=== PATIENT | male | born 1930 | race Caucasian/White ===

== ENCOUNTER 2016-10-19 16:58 | Inpatient (IN) | payer MEDICARE, BC ==
[2016-10-19] MEDS ORDERED: IPRATROPIUM-ALBUTEROL 3 ML NEB INHALATION STA (17:11)
--- NOTE | 2016-10-19 17:17 | ED ---
General Adult HPI - General Stated complaint: BRADLEY Time Seen by Provider: 10/19/16 17:01 Source: patient, EMS, RN notes reviewed Mode of arrival: EMS Limitations: no limitations - History of Present Illness Initial comments: Patient is a pleasant 86-year-old male presenting to the emergency department with difficulty in breathing. Symptoms have been present for the past 3 days. Patient admits to a nonproductive cough. No leg pain or leg swelling. Patient is unclear if he has had fevers. Patient is somewhat a poor historian. Patient reportedly is a no code. Patient does have paperwork confirming this. Patient reports he had a chest x-ray done and diagnosed with pneumonia. Patient has not yet been provided with antibiotics. - Related Data Home Medications Medication Instructions Recorded Confirmed Bimatoprost [Lumigan .01% Ophth 1 drop BOTH EYES HS@2100 10/30/14 10/19/16 Soln] Citalopram Hydrobromide [CeleXA] 20 mg PO HS@2100 10/30/14 10/19/16 Hydrochlorothiazide [Hydrodiuril] 25 mg PO DAILY@0800 10/30/14 10/19/16 Levothyroxine Sodium [Levoxyl] 125 mcg PO DAILY@0600 10/30/14 10/19/16 Losartan Potassium [Cozaar] 100 mg PO DAILY@0800 10/30/14 10/19/16 Metoprolol Tartrate [Lopressor] 100 mg PO BID@0800,2100 10/30/14 10/19/16 Simvastatin [Zocor] 20 mg PO AC-SUPPER@1700 10/30/14 10/19/16 hydrALAZINE HCL 25 mg PO BID@0800,1700 10/30/14 10/19/16 Multivit-Min/FA/Lycopene/Lut 1 tab PO DAILY@1700 03/12/15 10/19/16 [Centrum Silver Tablet] Albuterol Nebulized [Ventolin 2.5 mg INHALATION RT-Q6H PRN 10/05/15 10/19/16 Nebulized] Allopurinol [Zyloprim] 300 mg PO DAILY@0800 07/06/16 10/19/16 glipiZIDE [Glucotrol] 5 mg PO AC-TID 07/06/16 10/19/16 Acetaminophen Tab [Tylenol Tab] 650 mg PO Q4H PRN 10/19/16 10/19/16 Aspirin 325 mg PO DAILY@1700 10/19/16 10/19/16 Bisacodyl [Dulcolax] 10 mg RECTAL DAILY PRN 10/19/16 10/19/16 Furosemide 40 mg IV BID@0800,2100 10/19/16 10/19/16 Furosemide 40 mg IV ONCE@1037 10/19/16 10/19/16 Glucavinash Brown 1 can PO TID@0800,1200,1700 10/19/16 10/19/16 Insulin Aspart [NovoLOG] See Protocol SQ ACHS 10/19/16 10/19/16 Insulin Detemir [Levemir] 8 unit SQ BID@0800,1700 10/19/16 10/19/16 Ipratropium-Albuterol Nebulize 3 ml INHALATION RT-Q6H 10/19/16 10/19/16 [Duoneb 0.5 mg-3 mg/3 ml Soln] Levofloxacin 500Mg-D5w Pmx 500 mg IVPB HS@2100 10/19/16 10/19/16 [Levaquin 500Mg-D5w Pmx] Magnesium Hydroxide [Milk of 2,400 mg PO DAILY PRN 10/19/16 10/19/16 Magnesia] Na Phos,M-B/Na Phos,Di-Ba [Fleet 133 ml RECTAL ONCE PRN 10/19/16 10/19/16 Adult] Potassium Chloride ER [K-Dur 20] 20 meq PO ONCE@1300 10/19/16 10/19/16 Potassium Chloride ER [K-Dur 20] 20 meq PO ONCE@1400 10/19/16 10/19/16 Tiotropium 18 Mcg/Puff [Spiriva] 1 cap INHALATION RT-BID@0800,1700 10/19/16 guaiFENesin SYRUP 100MG/5ML 200 mg PO Q4H PRN 10/19/16 10/19/16 [Robitussin] guaiFENesin [Mucinex] 1,200 mg PO Q12H 10/19/16 10/19/16 Allergies Allergy/AdvReac Type Severity Reaction Status Date / Time Iodinated Contrast Media - Allergy Severe Confusion Verified 10/19/16 17:44 Oral and [Iodinated Contrast Media - IV Dye] Review of Systems ROS Statement: Those systems with pertinent positive or pertinent negative responses have been documented in the HPI. ROS Other: All systems not noted in ROS Statement are negative. Constitutional: Denies: chills Eyes: Denies: eye pain ENT: Denies: ear pain Respiratory: Reports: cough, dyspnea Cardiovascular: Denies: chest pain Endocrine: Denies: fatigue Gastrointestinal: Denies: abdominal pain Genitourinary: Denies: dysuria Musculoskeletal: Denies: back pain Skin: Denies: rash Neurological: Denies: weakness Past Medical History Past Medical History: Asthma, Cancer, Heart Failure, COPD, CVA/TIA, Diabetes Mellitus, Eye Disorder, Hyperlipidemia, Hypertension, Myocardial Infarction ([place]) Additional Past Medical History / Comment(s): CURRENT DRESSING ON LEFT FOOT, GOUT, GLAUCOMA, 2CND TOE LEFT FOOT AMPUTATED, HX CA, LIP SQUAMOUS CELL, SPLEEN CA, 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 Last Myocardial Infarction Date:: 2007 History of Any Multi-Drug Resistant Organisms: C-DIFF, MRSA Date of last positivie culture/infection: 08/2015 MDRO Source:: stool 2016, foot 2009 MRSA Past Surgical History: Appendectomy, Bladder Surgery, Bowel Resection, Cholecystectomy, Coronary Bypass/CABG, Hernia Repair, Joint Replacement, Pacemaker Additional Past Surgical History / Comment(s): SPLEEN and partial pancreas removed due to cancer, total right knee, SQUAMOUS CELL LESION REMOVED LIP, 2CND TOE LEFT TOE AMPUTATED,ANGIOGRAM 02/26/15 3rd toe lt foot amp, Past Anesthesia/Blood Transfusion Reactions: No Reported Reaction Type of Cardiac Device: Permanent Pacemaker, AICD Device Placement Date:: 2009 [place] Past Psychological History: Anxiety, Depression Additional Psychological History / Comment(s): at [facility] Smoking Status: Former smoker Past Alcohol Use History: Rare Additional Past Alcohol Use History / Comment(s): SMOKED CIGAR AND PIPE, STOPPED 1984 Past Drug Use History: None Reported - Past Family History Father Family Medical History: Cancer Additional Family Medical History / Comment(s): liver cancer Mother Family Medical History: Diabetes Mellitus, Myocardial Infarction ([place]) General Exam Limitations: no limitations General appearance: alert, in distress Head exam: Present: atraumatic Eye exam: Present: normal appearance, PERRL ENT exam: Present: normal oropharynx Neck exam: Present: normal inspection Respiratory exam: Present: respiratory distress, rales (Throughout) Cardiovascular Exam: Present: regular rate, normal rhythm GI/Abdominal exam: Present: soft. Absent: tenderness Extremities exam: Present: normal inspection. Absent: pedal edema, calf tenderness Neurological exam: Present: alert Psychiatric exam: Present: normal affect, normal mood Skin exam: Absent: rash Course Vital Signs 10/19/16 10/19/16 10/19/16 17:11 17:12 17:30 Temperature 100.1 F H Pulse Rate 104 H 97 Respiratory 32 H 36 H 32 H Rate Blood Pressure 170/109 137/78 O2 Sat by Pulse 93 L 95 Oximetry 10/19/16 10/19/16 10/19/16 18:09 19:00 19:20 Temperature Pulse Rate 94 85 81 Respiratory 36 H 30 H Rate Blood Pressure 126/73 104/57 O2 Sat by Pulse 95 99 Oximetry - Reevaluation(s) Reevaluation #1: 10/19/16 19:33 Patient has possible pneumonia and will be treated with antibiotics. Patient does meet sepsis criteria assuming pneumonia is positive on chest x-ray. This will be further evaluated by pulmonology. EKG Findings - EKG Comments: EKG Findings:: Paced rhythm and 96. MS 1:30. QRS 120. QT 380. QTC 48. Superior axis. Poor R-wave progression. No acute ST change. Medical Decision Making - Medical Decision Making Patient reevaluated and significantly improved with BiPAP. Family updated. Family confirms no CPR no intubation. Case discussed with both Dr. Lakhani as well as Dr. Lawton. They will admit further patient. Consult with Dr. Alfaro. Patient will be treated with antibiotics for possible pneumonia. - Lab Data Result diagrams: 10/19/16 17:29 10/19/16 18:03 Lab Results 10/19/16 10/19/16 10/19/16 Range/Units 17:29 17:29 17:29 WBC 11.2 H (3.8-10.6) k/uL RBC 3.85 L (4.30-5.90) m/uL Hgb 12.3 L (13.0-17.5) gm/dL Hct 38.1 L (39.0-53.0) % MCV 98.9 (80.0-100.0) fL MCH 31.9 (25.0-35.0) pg MCHC 32.2 (31.0-37.0) g/dL RDW 17.1 H (11.5-15.5) % Plt Count 244 (150-450) k/uL Neutrophils % 59 % Lymphocytes % 33 % Monocytes % 4 % Eosinophils % 1 % Basophils % 1 % Neutrophils # 6.6 (1.3-7.7) k/uL Lymphocytes # 3.7 (1.0-4.8) k/uL Monocytes # 0.4 (0-1.0) k/uL Eosinophils # 0.2 (0-0.7) k/uL Basophils # 0.1 (0-0.2) k/uL Hypochromasia Slight Anisocytosis Slight Macrocytosis Slight PT (9.0-12.0) sec INR (<1.1) APTT (22.0-30.0) sec Sodium (137-145) mmol/L Potassium (3.5-5.1) mmol/L Chloride (98-107) mmol/L Carbon Dioxide (22-30) mmol/L Anion Gap mmol/L BUN (9-20) mg/dL Creatinine (0.66-1.25) mg/dL Est GFR (MDRD) Af Amer (>60 ml/min/1.73 sqM) Est GFR (MDRD) Non-Af (>60 ml/min/1.73 sqM) Glucose (74-99) mg/dL Plasma Lactic Acid Sae 3.2 H* (0.7-2.0) mmol/L Calcium (8.4-10.2) mg/dL Total Bilirubin (0.2-1.3) mg/dL AST (17-59) U/L ALT (21-72) U/L Alkaline Phosphatase (38-126) U/L Total Creatine Kinase (55-170) U/L NT-Pro-B Natriuret Pep 6000 pg/mL Total Protein (6.3-8.2) g/dL Albumin (3.5-5.0) g/dL Urine Color Urine Appearance (Clear) Urine pH (5.0-8.0) Ur Specific [place] (1.001-1.035) Urine Protein (Negative) Urine Glucose (UA) (Negative) Urine Ketones (Negative) Urine Blood (Negative) Urine Nitrate (Negative) Urine Bilirubin (Negative) Urine Urobilinogen (<2.0) mg/dL Ur Leukocyte Esterase (Negative) Urine RBC (0-5) /hpf Urine WBC (0-5) /hpf Urine WBC Clumps (None) /hpf Urine Bacteria (None) /hpf Hyaline Casts (0-2) /lpf Urine Mucus (None) /hpf Influenza Type A RNA (Not Detectd) Influenza Type B (PCR) (Not Detectd) 10/19/16 10/19/16 10/19/16 Range/Units 17:29 18:03 18:03 WBC (3.8-10.6) k/uL RBC (4.30-5.90) m/uL Hgb (13.0-17.5) gm/dL Hct (39.0-53.0) % MCV (80.0-100.0) fL MCH (25.0-35.0) pg MCHC (31.0-37.0) g/dL RDW (11.5-15.5) % Plt Count (150-450) k/uL Neutrophils % % Lymphocytes % % Monocytes % % Eosinophils % % Basophils % % Neutrophils # (1.3-7.7) k/uL Lymphocytes # (1.0-4.8) k/uL Monocytes # (0-1.0) k/uL Eosinophils # (0-0.7) k/uL Basophils # (0-0.2) k/uL Hypochromasia Anisocytosis Macrocytosis PT (9.0-12.0) sec INR (<1.1) APTT (22.0-30.0) sec Sodium 144 (137-145) mmol/L Potassium 3.4 L (3.5-5.1) mmol/L Chloride 102 (98-107) mmol/L Carbon Dioxide 29 (22-30) mmol/L Anion Gap 13 mmol/L BUN 29 H (9-20) mg/dL Creatinine 0.89 (0.66-1.25) mg/dL Est GFR (MDRD) Af Amer >60 (>60 ml/min/1.73 sqM) Est GFR (MDRD) Non-Af >60 (>60 ml/min/1.73 sqM) Glucose 157 H (74-99) mg/dL Plasma Lactic Acid Sae (0.7-2.0) mmol/L Calcium 10.8 H (8.4-10.2) mg/dL Total Bilirubin 0.8 (0.2-1.3) mg/dL AST 39 (17-59) U/L ALT 52 (21-72) U/L Alkaline Phosphatase 93 (38-126) U/L Total Creatine Kinase 58 (55-170) U/L NT-Pro-B Natriuret Pep pg/mL Total Protein 7.6 (6.3-8.2) g/dL Albumin 3.2 L (3.5-5.0) g/dL Urine Color Urine Appearance (Clear) Urine pH (5.0-8.0) Ur Specific [place] (1.001-1.035) Urine Protein (Negative) Urine Glucose (UA) (Negative) Urine Ketones (Negative) Urine Blood (Negative) Urine Nitrate (Negative) Urine Bilirubin (Negative) Urine Urobilinogen (<2.0) mg/dL Ur Leukocyte Esterase (Negative) Urine RBC (0-5) /hpf Urine WBC (0-5) /hpf Urine WBC Clumps (None) /hpf Urine Bacteria (None) /hpf Hyaline Casts (0-2) /lpf Urine Mucus (None) /hpf Influenza Type A RNA Not Detected (Not Detectd) Influenza Type B (PCR) Not Detected (Not Detectd) 10/19/16 10/19/16 Range/Units 18:03 18:45 WBC (3.8-10.6) k/uL RBC (4.30-5.90) m/uL Hgb (13.0-17.5) gm/dL Hct (39.0-53.0) % MCV (80.0-100.0) fL MCH (25.0-35.0) pg MCHC (31.0-37.0) g/dL RDW (11.5-15.5) % Plt Count (150-450) k/uL Neutrophils % % Lymphocytes % % Monocytes % % Eosinophils % % Basophils % % Neutrophils # (1.3-7.7) k/uL Lymphocytes # (1.0-4.8) k/uL Monocytes # (0-1.0) k/uL Eosinophils # (0-0.7) k/uL Basophils # (0-0.2) k/uL Hypochromasia Anisocytosis Macrocytosis PT 12.0 (9.0-12.0) sec INR 1.2 (<1.1) APTT 22.6 (22.0-30.0) sec Sodium (137-145) mmol/L Potassium (3.5-5.1) mmol/L Chloride (98-107) mmol/L Carbon Dioxide (22-30) mmol/L Anion Gap mmol/L BUN (9-20) mg/dL Creatinine (0.66-1.25) mg/dL Est GFR (MDRD) Af Amer (>60 ml/min/1.73 sqM) Est GFR (MDRD) Non-Af (>60 ml/min/1.73 sqM) Glucose (74-99) mg/dL Plasma Lactic Acid Sae (0.7-2.0) mmol/L Calcium (8.4-10.2) mg/dL Total Bilirubin (0.2-1.3) mg/dL AST (17-59) U/L ALT (21-72) U/L Alkaline Phosphatase (38-126) U/L Total Creatine Kinase (55-170) U/L NT-Pro-B Natriuret Pep pg/mL Total Protein (6.3-8.2) g/dL Albumin (3.5-5.0) g/dL Urine Color Light Yellow Urine Appearance Cloudy (Clear) Urine pH 5.5 (5.0-8.0) Ur Specific [place] 1.007 (1.001-1.035) Urine Protein Negative (Negative) Urine Glucose (UA) Negative (Negative) Urine Ketones Negative (Negative) Urine Blood Negative (Negative) Urine Nitrate Negative (Negative) Urine Bilirubin Negative (Negative) Urine Urobilinogen <2.0 (<2.0) mg/dL Ur Leukocyte Esterase Small H (Negative) Urine RBC 1 (0-5) /hpf Urine WBC 10 H (0-5) /hpf Urine WBC Clumps Rare H (None) /hpf Urine Bacteria Occasional H (None) /hpf Hyaline Casts 10 H (0-2) /lpf Urine Mucus Rare H (None) /hpf Influenza Type A RNA (Not Detectd) Influenza Type B (PCR) (Not Detectd) - Radiology Data Radiology results: image reviewed (This x-ray shows some CHF. Personally I do question if there is a right middle lobe infiltrate as well.) Critical Care Time Critical Care Time: Yes Total Critical Care Time: 33 Disposition Clinical Impression: Congestive heart failure, Respiratory failure, Pneumonia Disposition: ADMITTED IP TO THIS HOSP Condition: Serious
[2016-10-19 17:41] LABS: Anisocytosis Slight; Basophils # (A) 0.1 k/uL (0-0.2); Basophils % (A) 1 %; CH 31.3; CHCM 31.9; Eosinophils # (A) 0.2 k/uL (0-0.7); Eosinophils % (A) 1 %; HCT 38.1 % (39.0-53.0); HDW 2.86; HGB 12.3 gm/dL (13.0-17.5); Hypochromasia Slight; Luc # (Auto) 0.22; Luc % (Auto) 2; Lymphocytes # (A) 3.7 k/uL (1.0-4.8); Lymphocytes % (A) 33 %; MCH 31.9 pg (25.0-35.0); MCHC 32.2 g/dL (31.0-37.0); MCV 98.9 fL (80.0-100.0); Macrocytosis Slight; Monocytes # (A) 0.4 k/uL (0-1.0); Monocytes % (A) 4 %; Neutrophils # (A) 6.6 k/uL (1.3-7.7); Neutrophils % (A) 59 %; RBC 3.85 m/uL (4.30-5.90); RDW 17.1 % (11.5-15.5); WBC 11.2 k/uL (3.8-10.6); WBC (Perox) 11.11
--- NOTE | 2016-10-19 18:08 | XR ---
EXAMINATION TYPE: XR chest 1V portable DATE OF EXAM: 10/19/2016 5:56 PM COMPARISON: 07/12/2016 HISTORY: Difficulty breathing TECHNIQUE: Single frontal view of the chest is obtained. FINDINGS: There is mild pulmonary congestion. There are chest leads. There is a left axillary pacema ker with lead tips in the right ventricle. There are no hilar masses. Heart is probably enlarged. IMPRESSION: There is probably mild heart failure. Pulmonary vascularity is similar to last exam. The re is probably interposition of the hepatic flexure of the colon which is normal variation.
[2016-10-19 18:20] LABS: ALT 52 U/L (21-72); AST 39 U/L (17-59); Alkaline Phosphatase 93 U/L (38-126); Anion Gap 13 mmol/L; Blood Urea Nitrogen 29 mg/dL (9-20); Calcium 10.8 mg/dL (8.4-10.2); Carbon Dioxide 29 mmol/L (22-30); Chloride 102 mmol/L (98-107); Glucose 157 mg/dL (74-99); Non-African American GFR(MDRD) >60 (>60 ml/min/1.73 sqM); Potassium 3.4 mmol/L (3.5-5.1); Sodium 144 mmol/L (137-145); Total Bilirubin 0.8 mg/dL (0.2-1.3); Total Protein 7.6 g/dL (6.3-8.2)
[2016-10-19] MEDS ORDERED: FUROSEMIDE 10 MG/ML 4 ML VIAL IV STA (18:29)
[2016-10-19] MEDS ORDERED: LEVOFLOXACIN 750MG-D5W PMX 750 MG in DEXTROSE/WATER 1 150ML.BAG IVPB STA (18:29)
[2016-10-19 18:33] LABS: INR 1.2 (<1.1); Partial Thromboplastin Time 22.6 sec (22.0-30.0)
[2016-10-19 19:04] LABS: Appearance,Urine Cloudy (Clear); Bacteria,Urine Occasional /hpf; Bilirubin,Urine Negative (Negative); Glucose,Urine (UA) Negative (Negative); Ketones,Urine Negative (Negative); Leukocyte Esterase,Urine Small (Negative); Mucus,Urine Rare /hpf; Nitrite,Urine Negative (Negative); PH, Urine 5.5 (5.0-8.0); Particle Count 30063; Protein,Urine Negative (Negative); RBC,Urine 1 /hpf (0-5); Specific Gravity,Urine 1.007 (1.001-1.035); UA Billing (MACRO vs. MICRO) MICRO; Urobilinogen,Urine <2.0 mg/dL (<2.0); WBC,Urine 10 /hpf (0-5)
[2016-10-19] MEDS ORDERED: ASPIRIN 325 MG TAB PO STA (19:34)
[2016-10-19] MEDS ORDERED: PIPERACILLIN-TAZOBACTAM 3.375 GM in DEXTROSE/WATER 1 50ML.BAG IVPB STA (19:34)
[2016-10-19] MEDS ORDERED: IPRATROPIUM-ALBUTEROL 3 ML NEB INHALATION PRN (19:34)
[2016-10-19] MEDS ORDERED: PNEUMONIA PROTOCOL UTILIZED 1 EACH MISC PO PRN (19:34)
[2016-10-19 20:08] LABS: Creatine Kinase MB 0.9 ng/mL (0.0-2.4)
[2016-10-19 20:11] LABS: Troponin I 0.092 ng/mL (0.000-0.034)
[2016-10-19] MEDS: IPRATROPIUM-ALBUTEROL 3 ML NEB INHALATION SCH (20:28)
[2016-10-19 22:18] LABS: Glucose,Whole Blood 238 mg/dL (75-99)
[2016-10-20 02:05] LABS: Glucose,Whole Blood 290 mg/dL (75-99)
[2016-10-20 05:57] LABS: Glucose,Whole Blood 327 mg/dL (75-99)
[2016-10-20] MEDS ORDERED: ONDANSETRON 4 MG/2 ML VIAL IVP PRN (06:13)
[2016-10-20] MEDS: INSULIN LISPRO (humaLOG) 300 UNIT/3 ML VIAL SQ SCH ×4 (06:59→20:45)
[2016-10-20] MEDS ORDERED: MAGNESIUM HYDROXIDE 2,400 MG/10 ML CUP PO PRN (07:42)
[2016-10-20 07:48] LABS: Anisocytosis Slight; CH 30.4; CHCM 30.4; HCT 34.3 % (39.0-53.0); HDW 2.77; HGB 10.5 gm/dL (13.0-17.5); Hypochromasia Moderate; MCH 30.9 pg (25.0-35.0); MCHC 30.7 g/dL (31.0-37.0); MCV 100.6 fL (80.0-100.0); Macrocytosis Slight; Mean Platelet Volume 11.8; RBC 3.41 m/uL (4.30-5.90); RDW 16.8 % (11.5-15.5); WBC 13.4 k/uL (3.8-10.6)
[2016-10-20 07:56] LABS: Anion Gap 15 mmol/L; Blood Urea Nitrogen 35 mg/dL (9-20); Calcium 10.6 mg/dL (8.4-10.2); Carbon Dioxide 27 mmol/L (22-30); Chloride 102 mmol/L (98-107); Glucose 313 mg/dL (74-99); Non-African American GFR(MDRD) >60 (>60 ml/min/1.73 sqM); Potassium 3.6 mmol/L (3.5-5.1); Sodium 144 mmol/L (137-145)
[2016-10-20] MEDS: FUROSEMIDE 10 MG/ML 4 ML VIAL IV SCH ×3 (07:58→23:18)
[2016-10-20] MEDS: ASPIRIN 325 MG TAB PO SCH (07:59)
[2016-10-20] MEDS: LOSARTAN 50 MG TAB PO SCH (07:59)
[2016-10-20] MEDS: METOPROLOL TARTRATE 50 MG TAB PO SCH ×2 (07:59→20:26)
[2016-10-20] MEDS: INSULIN DETEMIR 100 UNIT/ML 10 ML VIAL SQ SCH ×2 (08:02→17:34)
--- NOTE | 2016-10-20 08:07 | P.CRDCN ---
History of Present Illness Consult date: 10/20/16 Requesting physician: Izabella Connors Consult reason: shortness of breath Chief complaint: Cough, weakness and shortness of breath History of present illness: This is an 86-year-old gentleman with known history of coronary artery disease, prior bypass surgery, ischemic cardiomyopathy with prior AICD implantation, hypertension, diabetes, hyperlipidemia, PAD, prior CVA, who presented to the hospital mainly with complaints of a persistent productive cough, shortness of breath, and progressive weakness. Chest x-ray on admission revealed mild congestive heart failure. EKG shows a paced rhythm with underlying normal sinus rhythm occasional PVC. Laboratory data was reviewed, WBC 13.4, hemoglobin 10.5, platelet count is 212. Potassium 3.4, BUN 29, creatinine 0.8. Lactic acid 2.4. BNP level 6000. Troponins of 0.092, 0.137. Negative for flu. Patient was initiated on IV Lasix, appears to be diuresing well. Blood pressure 160/80 with a heart rate in the 80s. He is on a partial rebreather, 99% saturation. At the time of my examination this morning, patient complains of feeling short of breath, continues to have productive cough. Past Medical History Past Medical History: Asthma, Cancer, Heart Failure, COPD, CVA/TIA, Diabetes Mellitus, Eye Disorder, Hyperlipidemia, Hypertension, Memory Impairment, Myocardial Infarction ([place]) Additional Past Medical History / Comment(s): 06-26-16 CVA LT SIDE AFFECTED- WEARS BRIEF, INCONT OF URINE AND STOOL AT TIMES,GOUT, GLAUCOMA, 2CND TOE LEFT FOOT AMPUTATED, CARDIOMYOPATHY,HX CA, LIP SQUAMOUS CELL, SPLEEN CA, PARTIAL PANCREAS CA 3 rd toe lt foot amp, memory impairment,[place],DENTURES(NOT WITH PT) C-DIFF 08-17-15 Last Myocardial Infarction Date:: 2007 History of Any Multi-Drug Resistant Organisms: MRSA Date of last positivie culture/infection: 2008 MDRO Source:: foot 2009 MRSA Past Surgical History: AICD, Appendectomy, Bladder Surgery, Bowel Resection, Cholecystectomy, Coronary Bypass/CABG, Hernia Repair, Joint Replacement, Pacemaker Additional Past Surgical History / Comment(s): SPLEEN and partial pancreas removed due to cancer, total right knee, SQUAMOUS CELL LESION REMOVED LIP, 2CND TOE LEFT TOE AMPUTATED,ANGIOGRAM 02/26/15 3rd toe lt foot amp PER PT'S DAUGHTER "HAS TOE PROTHESIS", Past Anesthesia/Blood Transfusion Reactions: No Reported Reaction Type of Cardiac Device: Permanent Pacemaker, AICD Device Placement Date:: 2009 [place] Past Psychological History: Anxiety, Depression Additional Psychological History / Comment(s): RESIDES AT [facility], PT'S ( KARYNA) Jul. SINCE CVA IN JUN 2016- PT UNABLE TO AMBULATE, JANETTE LIFT TO W/C. NEEDS ASSIST WITH EATING(CUT FOOD SMALL PIECES), HONEY NECTAR THICK LIQUIDS, FAMILY STATES PT'S SPEECH IS STILL SOMEWHAT GARBLED. Smoking Status: Former smoker Past Alcohol Use History: None Reported Additional Past Alcohol Use History / Comment(s): SMOKED CIGAR AND PIPE, STOPPED 1984 Past Drug Use History: None Reported - Past Family History Father Family Medical History: Cancer Additional Family Medical History / Comment(s): liver cancer Mother Family Medical History: Diabetes Mellitus, Myocardial Infarction ([place]) Medications and Allergies Home Medications Medication Instructions Recorded Confirmed Type Bimatoprost [Lumigan .01% Ophth 1 drop BOTH EYES HS@209910/30/14 10/19/16 History Soln] Citalopram Hydrobromide [CeleXA] 20 mg PO HS@209910/30/14 10/19/16 History Hydrochlorothiazide [Hydrodiuril] 25 mg PO DAILY@0800 10/30/14 10/19/16 History Levothyroxine Sodium [Levoxyl] 125 mcg PO DAILY@0600 10/30/14 10/19/16 History Losartan Potassium [Cozaar] 100 mg PO DAILY@0810/30/14 10/19/16 History Metoprolol Tartrate [Lopressor] 100 mg PO BID@0800,209910/30/14 10/19/16 History Simvastatin [Zocor] 20 mg PO AC-SUPPER@169910/30/14 10/19/16 History hydrALAZINE HCL 25 mg PO BID@0800,1700 10/30/14 10/19/16 History Multivit-Min/FA/Lycopene/Lut 1 tab PO DAILY@1700 03/12/15 10/19/16 History [Centrum Silver Tablet] Albuterol Nebulized [Ventolin 2.5 mg INHALATION RT-Q6H PRN 10/05/15 10/19/16 History Nebulized] Allopurinol [Zyloprim] 300 mg PO DAILY@0800 07/06/16 10/19/16 History glipiZIDE [Glucotrol] 5 mg PO AC-TID 07/06/16 10/19/16 History Acetaminophen Tab [Tylenol Tab] 650 mg PO Q4H PRN 10/19/16 10/19/16 History Aspirin 325 mg PO DAILY@1700 10/19/16 10/19/16 History Bisacodyl [Dulcolax] 10 mg RECTAL DAILY PRN 10/19/16 10/19/16 History Furosemide 40 mg IV BID@0800,2100 10/19/16 10/19/16 History Furosemide 40 mg IV ONCE@1037 10/19/16 10/19/16 History Glucerna Shake 1 can PO TID@0800,1200,1700 10/19/16 10/19/16 History Insulin Aspart [NovoLOG] See Protocol SQ ACHS 10/19/16 10/19/16 History Insulin Detemir [Levemir] 8 unit SQ BID@0800,1700 10/19/16 10/19/16 History Ipratropium-Albuterol Nebulize 3 ml INHALATION RT-Q6H 10/19/16 10/19/16 History [Duoneb 0.5 mg-3 mg/3 ml Soln] Levofloxacin 500Mg-D5w Pmx 500 mg IVPB HS@2100 10/19/16 10/19/16 History [Levaquin 500Mg-D5w Pmx] Magnesium Hydroxide [Milk of 2,400 mg PO DAILY PRN 10/19/16 10/19/16 History Magnesia] Na Phos,M-B/Na Phos,Di-Ba [Fleet 133 ml RECTAL ONCE PRN 10/19/16 10/19/16 History Adult] Potassium Chloride ER [K-Dur 20] 20 meq PO ONCE@1300 10/19/16 10/19/16 History Potassium Chloride ER [K-Dur 20] 20 meq PO ONCE@1400 10/19/16 10/19/16 History Tiotropium 18 Mcg/Puff [Spiriva] 1 cap INHALATION RT-BID@0800,1700 10/19/16 History guaiFENesin SYRUP 100MG/5ML 200 mg PO Q4H PRN 10/19/16 10/19/16 History [Robitussin] guaiFENesin [Mucinex] 1,200 mg PO Q12H 10/19/16 10/19/16 History Allergies Allergy/AdvReac Type Severity Reaction Status Date / Time Iodinated Contrast Media - Allergy Severe Confusion Verified 10/19/16 17:44 Oral and [Iodinated Contrast Media - IV Dye] Physical Exam Vitals: Vital Signs Temp Pulse Pulse Resp BP BP Pulse Ox 10/20/16 05:13 16 10/20/16 03:49 98.3 F 87 16 161/82 10/20/16 01:40 98.8 F 89 16 157/88 10/20/16 00:23 99 F 84 18 150/76 96 10/19/16 23:30 83 18 148/73 96 10/19/16 22:30 81 18 139/72 97 10/19/16 21:30 87 18 140/79 99 10/19/16 20:30 87 18 124/79 100 10/19/16 19:38 84 Intake and Output 10/19/16 10/20/16 10/20/16 22:59 06:59 14:59 Output Total 300 Balance -300 Output: Urine 300 Other: Voiding Method Indwelling Catheter Weight 84.5 kg PHYSICAL EXAMINATION: HEENT: Head is atraumatic, normocephalic. Pupils equal, round. Neck is supple. There is no elevated jugular venous pressure. HEART EXAMINATION: S1 and S2 systolic murmur is heard. CHEST EXAMINATION: Lungs reveal scattered coarse rhonchi and wheezes throughout. ABDOMEN: Soft, nontender. Bowel sounds are heard. No organomegaly noted. EXTREMITIES: 1 + peripheral pulses with trace evidence of peripheral edema and no calf tenderness noted. NEUROLOGIC patient is awake, sleepy ,oriented -2. . Results 10/20/16 03:44 10/19/16 18:03 Cardiac Enzymes 10/20/16 Range/Units 01:49 Troponin I 0.137 H* (0.000-0.034) ng/mL CBC 10/20/16 Range/Units 03:44 WBC 13.4 H (3.8-10.6) k/uL RBC 3.41 L (4.30-5.90) m/uL Hgb 10.5 L (13.0-17.5) gm/dL Hct 34.3 L (39.0-53.0) % Plt Count 212 (150-450) k/uL Current Medications Generic Name Dose Route Start Last Admin Trade Name Freq PRN Reason Stop Dose Admin Albuterol/Ipratropium 3 ml 10/19/16 20:00 10/19/16 20:28 Duoneb 0.5 Mg-3 Mg/3 Ml Soln INHALATION Not Given RT-QID TORIE Albuterol/Ipratropium 3 ml 10/19/16 19:34 Duoneb 0.5 Mg-3 Mg/3 Ml Soln INHALATION RT-Q4H PRN shortness of breath Aspirin 325 mg 10/20/16 09:00 Aspirin PO DAILY [facility] Furosemide 40 mg 10/20/16 08:00 Lasix IV Q8HR [facility] Levofloxacin 750 mg/ IV 150 mls @ 100 mls/hr 10/20/16 20:00 Solution IVPB 11/01/16 20:01 Q24H [facility] Piperacillin/Tazobactam/ 50 mls @ 12.5 mls/hr 10/20/16 08:00 Dextrose 3.375 gm/ IV Solution IVPB 10/30/16 08:01 Q8HR [facility] Insulin Detemir 8 unit 10/20/16 08:00 Levemir SQ BID@0800,1700 [facility] Insulin Human Lispro 0 unit 10/20/16 07:30 10/20/16 06:59 Humalog SQ 6 unit ACHS [facility] Administration Protocol Levothyroxine Sodium 125 mcg 10/21/16 06:00 Synthroid PO DAILY@0600 [facility] Losartan Potassium 100 mg 10/20/16 08:00 Cozaar PO DAILY@0800 [facility] Magnesium Hydroxide 2,400 mg 10/20/16 07:42 Milk Of Magnesia PO DAILY PRN Constipation Metoprolol Tartrate 100 mg 10/20/16 08:00 Lopressor PO BID@0800,2100 [facility] Miscellaneous Information 1 each 10/19/16 19:34 Pneumonia Protocol Utilized PO ONCE PRN Per Protocol Ondansetron HCl 4 mg 10/20/16 06:13 Zofran IVP Q6HR PRN Nausea And Vomiting Sodium Chloride 10 ml 10/19/16 21:00 10/20/16 02:33 Saline Flush IV Not Given BID [facility] Intake and Output 10/19/16 10/20/16 10/20/16 22:59 06:59 14:59 Output Total 300 Balance -300 Output: Urine 300 Other: Voiding Method Indwelling Catheter Weight 84.5 kg 10/20/16 03:44 EKG Interpretations (text) EKG shows a paced rhythm with underlying normal sinus rhythm. Assessment and Plan Plan: Assessment and plan #1 symptoms of productive cough with associated shortness of breath, likely a combination of acute tracheobronchitis and mild congestive heart failure, systolic in nature acute on chronic. Most recent echocardiogram with Doppler study was performed in June of last year which revealed an ejection fraction of 30-35%. #2 known history of coronary artery disease with prior bypass surgery in 2007 #3 diabetes #4 hypertension # 5 ischemic cardiomyopathy with prior AICD #6 hyperlipidemia #7 prior CVA #8 PAD #9 abnormal troponins, not consistent with acute coronary syndrome, likely secondary to oxygen supply and demand mismatch, patient denies having any chest pain. Most recent dobutamine echocardiographic study was performed in 2014. Plan We will obtain a repeat echocardiogram with Doppler study. Continue IV Lasix. Continue IV antibiotics. We will also resume the patient's losartan, Synthroid , Lopressor, and statin. Add Aldactone to the patient's medication regime. Further recommendations to follow. DNP note has been reviewed, I agree with a documented findings and plan of care. Patient was seen and examined.
--- NOTE | 2016-10-20 09:30 | XR ---
EXAMINATION TYPE: XR chest 2V DATE OF EXAM: 10/20/2016 9:25 AM COMPARISON: 10/19/2016 TECHNIQUE: PA and lateral views submitted. HISTORY: Difficulty breathing FINDINGS: Bilateral interstitial pattern seen with small bilateral effusions and basilar infiltrate. Cardiac de vice, cardiomegaly, postsurgical change, calcified lymph nodes noted. Arthropathy of the shoulders seen. Degenerative and hypertrophic change of the spine. Epicardial lead noted. IMPRESSION: 1. Mild CHF with tiny bilateral effusions and basilar infiltrate stable from previous.
[2016-10-20] MEDS: IPRATROPIUM-ALBUTEROL 3 ML NEB INHALATION SCH ×4 (09:34→20:00)
--- NOTE | 2016-10-20 09:44 | P.HPIM ---
History of Present Illness H&P Date: 10/20/16 Chief Complaint: Worsening shortness of breath Patient is an 86-year-old male well-known to my practice who presented to [facility] emergency room with a chief complaint of worsening shortness of breath and cough, he was evaluated in the emergency room preliminary diagnosis was acute track KO bronchitis and acute on chronic exacerbation of systolic congestive heart failure he was started on IV antibiotic and IV diuretics and was admitted to telemetry floor. Patient had hypoxia on presentation which required use of BiPAP in the emergency room, he improved currently he is maintained on oxygen via nasal cannula. Patient has a known history of congestive heart failure ejection fraction was about 35% on the last check about 6 months ago he also has a known history of coronary artery disease, chronic obstructive pulmonary disease, diabetes mellitus, hypertension, hyperlipidemia, and osteoarthritis. Past Medical History Past Medical History: Asthma, Cancer, Heart Failure, COPD, CVA/TIA, Diabetes Mellitus, Eye Disorder, Hyperlipidemia, Hypertension, Memory Impairment, Myocardial Infarction ([place]) Additional Past Medical History / Comment(s): 06-26-16 CVA LT SIDE AFFECTED- WEARS BRIEF, INCONT OF URINE AND STOOL AT TIMES,GOUT, GLAUCOMA, 2CND TOE LEFT FOOT AMPUTATED, CARDIOMYOPATHY,HX CA, LIP SQUAMOUS CELL, SPLEEN CA, PARTIAL PANCREAS CA 3 rd toe lt foot amp, memory impairment,PAST FALLS [place],DENTURES(NOT WITH PT) C-DIFF 08-17-15 Last Myocardial Infarction Date:: 2007 History of Any Multi-Drug Resistant Organisms: MRSA Date of last positivie culture/infection: 2008 MDRO Source:: foot 2008 MRSA Past Surgical History: AICD, Appendectomy, Bladder Surgery, Bowel Resection, Cholecystectomy, Coronary Bypass/CABG, Hernia Repair, Joint Replacement, Pacemaker Additional Past Surgical History / Comment(s): SPLEEN and partial pancreas removed due to cancer, total right knee, SQUAMOUS CELL LESION REMOVED LIP, 2CND TOE LEFT TOE AMPUTATED,ANGIOGRAM 02/26/15 3rd toe lt foot amp PER PT'S DAUGHTER "HAS TOE PROTHESIS", Past Anesthesia/Blood Transfusion Reactions: No Reported Reaction Type of Cardiac Device: Permanent Pacemaker, AICD Device Placement Date:: 2009 tvCompass Past Psychological History: Anxiety, Depression Additional Psychological History / Comment(s): RESIDES AT [facility], PT'S ( KARYNA) Jul. SINCE CVA IN JUN 2016- PT UNABLE TO AMBULATE, JANETTE LIFT TO W/C. NEEDS ASSIST WITH EATING(CUT FOOD SMALL PIECES), HONEY NECTAR THICK LIQUIDS, FAMILY STATES PT'S SPEECH IS STILL SOMEWHAT GARBLED. Smoking Status: Former smoker Past Alcohol Use History: None Reported Additional Past Alcohol Use History / Comment(s): SMOKED CIGAR AND PIPE, STOPPED 1984 Past Drug Use History: None Reported - Past Family History Father Family Medical History: Cancer Additional Family Medical History / Comment(s): liver cancer Mother Family Medical History: Diabetes Mellitus, Myocardial Infarction ([place]) Medications and Allergies Home Medications Medication Instructions Recorded Confirmed Type Bimatoprost [Lumigan .01% Ophth 1 drop BOTH EYES HS@209910/30/14 10/19/16 History Soln] Citalopram Hydrobromide [CeleXA] 20 mg PO HS@209910/30/14 10/19/16 History Hydrochlorothiazide [Hydrodiuril] 25 mg PO DAILY@0810/30/14 10/19/16 History Levothyroxine Sodium [Levoxyl] 125 mcg PO DAILY@0600 10/30/14 10/19/16 History Losartan Potassium [Cozaar] 100 mg PO DAILY@0810/30/14 10/19/16 History Metoprolol Tartrate [Lopressor] 100 mg PO BID@0800,209910/30/14 10/19/16 History Simvastatin [Zocor] 20 mg PO AC-SUPPER@169910/30/14 10/19/16 History hydrALAZINE HCL 25 mg PO BID@0800,1700 10/30/14 10/19/16 History Multivit-Min/FA/Lycopene/Lut 1 tab PO DAILY@0 03/12/15 10/19/16 History [Centrum Silver Tablet] Albuterol Nebulized [Ventolin 2.5 mg INHALATION RT-Q6H PRN 10/05/15 10/19/16 History Nebulized] Allopurinol [Zyloprim] 300 mg PO DAILY@0800 07/06/16 10/19/16 History glipiZIDE [Glucotrol] 5 mg PO AC-TID 07/06/16 10/19/16 History Acetaminophen Tab [Tylenol Tab] 650 mg PO Q4H PRN 10/19/16 10/19/16 History Aspirin 325 mg PO DAILY@1700 10/19/16 10/19/16 History Bisacodyl [Dulcolax] 10 mg RECTAL DAILY PRN 10/19/16 10/19/16 History Furosemide 40 mg IV BID@0800,2100 10/19/16 10/19/16 History Furosemide 40 mg IV ONCE@1037 10/19/16 10/19/16 History Glucerna Shake 1 can PO TID@0800,1200,1700 10/19/16 10/19/16 History Insulin Aspart [NovoLOG] See Protocol SQ ACHS 10/19/16 10/19/16 History Insulin Detemir [Levemir] 8 unit SQ BID@0800,1700 10/19/16 10/19/16 History Ipratropium-Albuterol Nebulize 3 ml INHALATION RT-Q6H 10/19/16 10/19/16 History [Duoneb 0.5 mg-3 mg/3 ml Soln] Levofloxacin 500Mg-D5w Pmx 500 mg IVPB HS@2100 10/19/16 10/19/16 History [Levaquin 500Mg-D5w Pmx] Magnesium Hydroxide [Milk of 2,400 mg PO DAILY PRN 10/19/16 10/19/16 History Magnesia] Na Phos,M-B/Na Phos,Di-Ba [Fleet 133 ml RECTAL ONCE PRN 10/19/16 10/19/16 History Adult] Potassium Chloride ER [K-Dur 20] 20 meq PO ONCE@1300 10/19/16 10/19/16 History Potassium Chloride ER [K-Dur 20] 20 meq PO ONCE@1400 10/19/16 10/19/16 History Tiotropium 18 Mcg/Puff [Spiriva] 1 cap INHALATION RT-BID@0800,1700 10/19/16 History guaiFENesin SYRUP 100MG/5ML 200 mg PO Q4H PRN 10/19/16 10/19/16 History [Robitussin] guaiFENesin [Mucinex] 1,200 mg PO Q12H 10/19/16 10/19/16 History Allergies Allergy/AdvReac Type Severity Reaction Status Date / Time Iodinated Contrast Media - Allergy Severe Confusion Verified 10/19/16 17:44 Oral and [Iodinated Contrast Media - IV Dye] Physical Exam Vitals: Vital Signs Temp Pulse Pulse Resp BP BP Pulse Ox 10/20/16 08:00 97.6 F 87 20 161/91 99 10/20/16 05:13 16 10/20/16 03:49 98.3 F 87 16 161/82 10/20/16 01:40 98.8 F 89 16 157/88 10/20/16 00:23 99 F 84 18 150/76 96 10/19/16 23:30 83 18 148/73 96 10/19/16 22:30 81 18 139/72 97 10/19/16 21:30 87 18 140/79 99 10/19/16 20:30 87 18 124/79 100 10/19/16 19:38 84 Intake and Output 10/19/16 10/20/16 10/20/16 22:59 06:59 14:59 Output Total 300 100 Balance -300 -100 Output: Urine 300 100 Uretheral (Johnson) 100 Other: Voiding Method Indwelling Catheter Indwelling Catheter Weight 84.5 kg In general patient is alert and oriented in no apparent distress HEENT head normocephalic and atraumatic Neck is supple no JVD no goiter no lymphadenopathy Chest exam reveals coarse crackles bilaterally, no wheezing Cardiac exam reveals irregular heart sounds no gallops no murmurs Abdomen is soft nontender no organomegaly with normal bowel sounds Extremity exam reveals minimal edema no cyanosis or clubbing Results CBC & Chem 7: 10/20/16 03:44 10/20/16 03:44 Labs: Abnormal Lab Results - Last 24 Hours (Table) 10/19/16 10/19/16 10/20/16 Range/Units 21:40 22:15 01:49 WBC (3.8-10.6) k/uL RBC (4.30-5.90) m/uL Hgb (13.0-17.5) gm/dL Hct (39.0-53.0) % MCV (80.0-100.0) fL MCHC (31.0-37.0) g/dL RDW (11.5-15.5) % BUN (9-20) mg/dL Glucose (74-99) mg/dL POC Glucose (mg/dL) 238 H (75-99) mg/dL Plasma Lactic Acid Sae 3.0 H* (0.7-2.0) mmol/L Calcium (8.4-10.2) mg/dL Troponin I 0.137 H* (0.000-0.034) ng/mL 10/20/16 10/20/16 10/20/16 Range/Units 01:53 03:44 03:44 WBC 13.4 H (3.8-10.6) k/uL RBC 3.41 L (4.30-5.90) m/uL Hgb 10.5 L (13.0-17.5) gm/dL Hct 34.3 L (39.0-53.0) % MCV 100.6 H (80.0-100.0) fL MCHC 30.7 L (31.0-37.0) g/dL RDW 16.8 H (11.5-15.5) % BUN (9-20) mg/dL Glucose (74-99) mg/dL POC Glucose (mg/dL) 290 H (75-99) mg/dL Plasma Lactic Acid Sae 2.4 H* (0.7-2.0) mmol/L Calcium (8.4-10.2) mg/dL Troponin I (0.000-0.034) ng/mL 10/20/16 10/20/16 10/20/16 Range/Units 03:44 05:56 07:49 WBC (3.8-10.6) k/uL RBC (4.30-5.90) m/uL Hgb (13.0-17.5) gm/dL Hct (39.0-53.0) % MCV (80.0-100.0) fL MCHC (31.0-37.0) g/dL RDW (11.5-15.5) % BUN 35 H (9-20) mg/dL Glucose 313 H (74-99) mg/dL POC Glucose (mg/dL) 327 H (75-99) mg/dL Plasma Lactic Acid Sae (0.7-2.0) mmol/L Calcium 10.6 H (8.4-10.2) mg/dL Troponin I 0.140 H* (0.000-0.034) ng/mL Thrombosis Risk Factor Assmnt - Choose All That Apply Any of the Below Risk Factors Present?: Yes Each Factor Represents 1 point: Abnormal pulmonary function (COPD), Heart failure (<1month), Obesity (BMI >25), Serious lung disease incl. pneumonia (< 1month), Swollen legs (current) Other Risk Factors: Yes Each Risk Factor Represents 2 Points: Malignancy Each Risk Factor Represents 3 Points: Age 75 years or older Other congenital or acquired thrombophilia - If yes, enter type in comment: No Thrombosis Risk Factor Assessment Total Risk Factor Score: 10 Thrombosis Risk Factor Assessment Level: High Risk Assessment and Plan Plan: #1 acute tracheobronchitis patient was started on IV Levaquin in the emergency room chest x-ray did not reveal evidence of pneumonia on presentation repeat chest x-ray was done this morning Will review. #2 acute on chronic systolic congestive heart failure exacerbation, last echo about 6 months ago showed ejection fraction of 35%, cardiology consult was requested #3 slight elevation in troponin level will monitor patient denies any chest pain #4 underlying history of hypertension blood pressure readings are elevated at this time, will continue to monitor to assess need for adjusting her blood pressure medications #5 insulin-dependent diabetes mellitus #6 osteoarthritis was physical debility At this time patient was started on IV antibiotics and IV diuretics, and inhaled bronchodilators will continue was current management pulmonary and cardiology consultation were requested will follow closely. Prognosis is guarded due to his advanced nature of the patient cardiac and pulmonary condition and his advanced age and deconditioning.
[2016-10-20] MEDS: SPIRONOLACTONE 25 MG TAB PO SCH (09:48)
[2016-10-20] MEDS: PIPERACILLIN-TAZOBACTAM 3.375 GM in DEXTROSE/WATER 1 50ML.BAG IVPB SCH ×3 (09:48→23:18)
[2016-10-20 11:45] LABS: Hemoglobin A1C 6.3 % (4.2-6.1)
[2016-10-20 12:08] LABS: Glucose,Whole Blood 300 mg/dL (75-99)
--- NOTE | 2016-10-20 13:26 | CDI ---
In responding to this query, please exercise your independent professional judgment. The [facility] Coding Staff and Clinical Documentation Specialists appreciate your assistance in clarifying documentation, maintaining compliance with coding guidelines, accurately documenting patients condition and capturing severity of illness. The fact that a question is asked does not imply that any particular answer is desired or expected. Communication forms are a method of clarifying documentation and are not made part of the Legal Health Record. Thank you in advance for your clarification. Last Revision, October 2015 Marco Antonio Sotelo [address] [facility] [place] [address] Documentation Clarification Form Date: 10/20/2016 1:13:00 PM From: Iza Kincaid Admit Date: 10/19/2016 7:34:00 PM Patient Name: Daniel Sagastume Visit Number: [id number] Dr. Jose Lawton The patient presented to ED with difficulty in breathing and cough x 3 days. Per H&P the patient had 'hypoxia on presentation which required use of Bipap in ER'. History/Risk Factors: COPD Acute Tracheobronchitis Acute on Chronic Systolic CHF Diabetes Mellitus Hypertension Exsmoker Clinical Indicators: Vital signs/Pulse oximetry: HR 104, RR 32, bp 170/109, O2 sats 93% Lung/Breathing assessment: short of breath, labored with RR 36 Treatment: Breathing tx IV Lasix IV Levaquin IV Zosyn O2 nasal cannula > Bipap > non-rebreather > 6L nasal cannula In your professional opinion, can you please clarify if these findings signify one of the following conditions? Acuity: o Acute Respiratory Status: o Respiratory failure with hypercapnia o Respiratory failure with hypoxia o Acute Respiratory Distress o Other Diagnosis, please specify o Unable to determine Please document in your progress notes and discharge summary in order to capture severity of illness and risk of mortality. Include clinical findings that support your diagnosis. FYI: Press F11 to launch patient chart. Place X here if this finding has no clinical significance, is not applicable or if you are not able to provide any additional documentation. MTDD
--- NOTE | 2016-10-20 13:47 | P.PN ---
Progress Note - Text This is an addendum to the dictated cardiology consultation. The patient has a known history of CAD, status post CABG, severe cardiomyopathy and ICD implantation who presented with symptoms of upper respiratory infection, cough and progressive dyspnea. His NT proBNP was elevated. He denies any symptoms of chest discomfort, and he has no significant peripheral edema. He has no dizziness, palpitations or syncope. His physical examination shows bilateral rhonchi, he is in sinus mechanism and there is no evidence of peripheral edema. His symptoms appear to be a tracheobronchitis with exacerbation of his systolic congestive heart failure. The elevation of the troponin most likely represents a type II event. We will continue diuresis for 24 hours, follow his renal function closely and depending on his progress further recommendations will be made. Thank you for this consult we will follow with you
--- NOTE | 2016-10-20 13:49 | P.CNPUL ---
History of Present Illness Consult date: 10/20/16 Requesting physician: Jose Lawton Reason for consult: dyspnea, cough Chief complaint: Shortness of breath and cough History of present illness: This is an 86-year-old white male with history of coronary artery disease, prior bypass surgery over 15 years ago, history of ischemic cardiomyopathy, previous AICD implantation, history of hypertension diabetes hyperlipidemia CVA , patient is mostly bedridden, has not been ambulatory for quite some time. Patient is staying at a custodial. Patient has been noted to have productive cough, shortness of breath, and progressive weakness. He was brought into the ER, and he was noted to have some mild congestive changes noted on the chest x-ray. He had slight leukocytosis with WBC count of 15.4, his BNP level was elevated. And his troponins were also noted to be elevated. Upon further questioning and upon evaluation at bedside, I strongly felt that the patient is having intermittent episodes of aspiration. As he was getting sips of water by his daughter, patient was having significant cough and barky type of cough, felt to be exacerbated by swallowing water. Hence I recommended a swallow evaluation on this patient. In the meantime he is being followed by cardiology for his mild congestive heart failure I strongly believe that the patient is aspirating. The patient himself is a very poor historian, information about the patient was obtained from his daughter at bedside. Review of Systems ROS unobtainable: due to mental status Past Medical History Past Medical History: Asthma, Cancer, Heart Failure, COPD, CVA/TIA, Diabetes Mellitus, Eye Disorder, Hyperlipidemia, Hypertension, Memory Impairment, Myocardial Infarction ([place]) Additional Past Medical History / Comment(s): 06-26-16 CVA LT SIDE AFFECTED- WEARS BRIEF, INCONT OF URINE AND STOOL AT TIMES,GOUT, GLAUCOMA, 2CND TOE LEFT FOOT AMPUTATED, CARDIOMYOPATHY,HX CA, LIP SQUAMOUS CELL, SPLEEN CA, PARTIAL PANCREAS CA 3 rd toe lt foot amp, memory impairment,PAST FALLS [place],DENTURES(NOT WITH PT) C-DIFF 08-17-15 Last Myocardial Infarction Date:: 2007 History of Any Multi-Drug Resistant Organisms: MRSA Date of last positivie culture/infection: 2008 MDRO Source:: foot 2008 MRSA Past Surgical History: AICD, Appendectomy, Bladder Surgery, Bowel Resection, Cholecystectomy, Coronary Bypass/CABG, Hernia Repair, Joint Replacement, Pacemaker Additional Past Surgical History / Comment(s): SPLEEN and partial pancreas removed due to cancer, total right knee, SQUAMOUS CELL LESION REMOVED LIP, 2CND TOE LEFT TOE AMPUTATED,ANGIOGRAM 02/26/15 3rd toe lt foot amp PER PT'S DAUGHTER "HAS TOE PROTHESIS", Past Anesthesia/Blood Transfusion Reactions: No Reported Reaction Type of Cardiac Device: Permanent Pacemaker, AICD Device Placement Date:: 2009 Smart Cube Past Psychological History: Anxiety, Depression Additional Psychological History / Comment(s): RESIDES AT [facility], PT'S ( KARYNA) Jul. SINCE CVA IN JUN 2016- PT UNABLE TO AMBULATE, JANETTE LIFT TO W/C. NEEDS ASSIST WITH EATING(CUT FOOD SMALL PIECES), HONEY NECTAR THICK LIQUIDS, FAMILY STATES PT'S SPEECH IS STILL SOMEWHAT GARBLED. Smoking Status: Former smoker Past Alcohol Use History: None Reported Additional Past Alcohol Use History / Comment(s): SMOKED CIGAR AND PIPE, STOPPED 1984 Past Drug Use History: None Reported - Past Family History Father Family Medical History: Cancer Additional Family Medical History / Comment(s): liver cancer Mother Family Medical History: Diabetes Mellitus, Myocardial Infarction ([place]) Medications and Allergies Home Medications Medication Instructions Recorded Confirmed Type Bimatoprost [Lumigan .01% Ophth 1 drop BOTH EYES HS@209910/30/14 10/19/16 History Soln] Citalopram Hydrobromide [CeleXA] 20 mg PO HS@209910/30/14 10/19/16 History Hydrochlorothiazide [Hydrodiuril] 25 mg PO DAILY@0810/30/14 10/19/16 History Levothyroxine Sodium [Levoxyl] 125 mcg PO DAILY@0600 10/30/14 10/19/16 History Losartan Potassium [Cozaar] 100 mg PO DAILY@79910/30/14 10/19/16 History Metoprolol Tartrate [Lopressor] 100 mg PO BID@00,209910/30/14 10/19/16 History Simvastatin [Zocor] 20 mg PO AC-SUPPER@169910/30/14 10/19/16 History hydrALAZINE HCL 25 mg PO BID@0800,17010/30/14 10/19/16 History Multivit-Min/FA/Lycopene/Lut 1 tab PO DAILY@1700 03/12/15 10/19/16 History [Centrum Silver Tablet] Albuterol Nebulized [Ventolin 2.5 mg INHALATION RT-Q6H PRN 10/05/15 10/19/16 History Nebulized] Allopurinol [Zyloprim] 300 mg PO DAILY@0800 07/06/16 10/19/16 History glipiZIDE [Glucotrol] 5 mg PO AC-TID 07/06/16 10/19/16 History Acetaminophen Tab [Tylenol Tab] 650 mg PO Q4H PRN 10/19/16 10/19/16 History Aspirin 325 mg PO DAILY@17010/19/16 10/19/16 History Bisacodyl [Dulcolax] 10 mg RECTAL DAILY PRN 10/19/16 10/19/16 History Furosemide 40 mg IV BID@0800,2100 10/19/16 10/19/16 History Furosemide 40 mg IV ONCE@1037 10/19/16 10/19/16 History Glucerna Shake 1 can PO TID@0800,1200,1700 10/19/16 10/19/16 History Insulin Aspart [NovoLOG] See Protocol SQ ACHS 10/19/16 10/19/16 History Insulin Detemir [Levemir] 8 unit SQ BID@0800,1700 10/19/16 10/19/16 History Ipratropium-Albuterol Nebulize 3 ml INHALATION RT-Q6H 10/19/16 10/19/16 History [Duoneb 0.5 mg-3 mg/3 ml Soln] Levofloxacin 500Mg-D5w Pmx 500 mg IVPB HS@2100 10/19/16 10/19/16 History [Levaquin 500Mg-D5w Pmx] Magnesium Hydroxide [Milk of 2,400 mg PO DAILY PRN 10/19/16 10/19/16 History Magnesia] Na Phos,M-B/Na Phos,Di-Ba [Fleet 133 ml RECTAL ONCE PRN 10/19/16 10/19/16 History Adult] Potassium Chloride ER [K-Dur 20] 20 meq PO ONCE@1300 10/19/16 10/19/16 History Potassium Chloride ER [K-Dur 20] 20 meq PO ONCE@1400 10/19/16 10/19/16 History Tiotropium 18 Mcg/Puff [Spiriva] 1 cap INHALATION RT-BID@0800,1700 10/19/16 History guaiFENesin SYRUP 100MG/5ML 200 mg PO Q4H PRN 10/19/16 10/19/16 History [Robitussin] guaiFENesin [Mucinex] 1,200 mg PO Q12H 10/19/16 10/19/16 History Allergies Allergy/AdvReac Type Severity Reaction Status Date / Time Iodinated Contrast Media - Allergy Severe Confusion Verified 10/19/16 17:44 Oral and [Iodinated Contrast Media - IV Dye] Physical Exam Vitals: Vital Signs Temp Pulse Pulse Resp BP BP Pulse Ox 10/20/16 12:43 88 10/20/16 12:26 88 10/20/16 11:46 96.6 F L 84 20 156/82 99 10/20/16 09:48 84 10/20/16 09:34 84 10/20/16 08:00 97.6 F 87 20 161/91 99 10/20/16 05:13 16 10/20/16 03:49 98.3 F 87 16 161/82 10/20/16 01:40 98.8 F 89 16 157/88 10/20/16 00:23 99 F 84 18 150/76 96 10/19/16 23:30 83 18 148/73 96 10/19/16 22:30 81 18 139/72 97 10/19/16 21:30 87 18 140/79 99 10/19/16 20:30 87 18 124/79 100 10/19/16 19:38 84 Intake and Output 10/19/16 10/20/16 10/20/16 22:59 06:59 14:59 Intake Total 310 Output Total 300 500 Balance -300 -190 Intake: IV 80 .9 @ 20 80 Intake, IV Titration 50 Amount Piperacillin-Tazobactam 3 50 .375 gm In Dextrose/Water 1 50ml.bag @ 12.5 mls/hr IVPB Q8HR [facility] Rx#: [id number] Oral 180 Output: Urine 300 500 Uretheral (Johnson) 500 Other: Voiding Method Indwelling Catheter Indwelling Catheter # Bowel Movements 1 Weight 84.5 kg HEENT: No neck masses no JVD, no thyromegaly, no stridor. HEART EXAMINATION: S1 and S2 systolic murmur is heard. CHEST EXAMINATION: Lungs reveal scattered coarse rhonchi and wheezes throughout. ABDOMEN: Soft, nontender. Bowel sounds are heard. No organomegaly noted. EXTREMITIES: 1 + peripheral pulses with trace evidence of peripheral edema and no calf tenderness noted. NEUROLOGIC patient is awake, sleepy , slightly confused Results - Laboratory Findings CBC and BMP: 10/20/16 03:44 10/20/16 03:44 PT/INR, D-dimer PT 12.0 sec (9.0-12.0) 10/19/16 18:03 INR 1.2 (<1.1) 10/19/16 18:03 Abnormal lab findings: Abnormal Labs 10/19/16 10/19/16 10/20/16 21:40 22:15 01:49 WBC RBC Hgb Hct MCV MCHC RDW BUN Glucose POC Glucose (mg/dL) 238 H Plasma Lactic Acid Sae 3.0 H* Calcium Troponin I 0.137 H* 10/20/16 10/20/16 10/20/16 01:53 03:44 03:44 WBC 13.4 H RBC 3.41 L Hgb 10.5 L Hct 34.3 L MCV 100.6 H MCHC 30.7 L RDW 16.8 H BUN Glucose POC Glucose (mg/dL) 290 H Plasma Lactic Acid Sae 2.4 H* Calcium Troponin I 10/20/16 10/20/16 10/20/16 03:44 05:56 07:49 WBC RBC Hgb Hct MCV MCHC RDW BUN 35 H Glucose 313 H POC Glucose (mg/dL) 327 H Plasma Lactic Acid Sae Calcium 10.6 H Troponin I 0.140 H* 10/20/16 12:00 WBC RBC Hgb Hct MCV MCHC RDW BUN Glucose POC Glucose (mg/dL) 300 H Plasma Lactic Acid Sae Calcium Troponin I - Diagnostic Findings Chest x-ray: image reviewed (Suspect by basilar infiltrates, doubt congestive heart failure.) Assessment and Plan Plan: Impression: 1 strongly suspect aspiration pneumonia 2 suspect cardiomyopathy and mild component of heart failure mostly systolic in nature knowing that the patient's EF is 30 to 35 percent at best. 3 multiple comorbidities including coronary artery disease and previous CABG in 2007. History of diabetes. History of hyperlipidemia. History of AICD placement for ischemic cardiomyopathy. History of previous CVA. History of peripheral vessel occlusive disease. Recommendation: Continue present treatment plan, agree with antibiotics as ordered, continue bronchodilators, patient should have swallow evaluation and address accordingly. We'll continue to follow. The stress his condition with his daughter at bedside. Patient is DO NOT RESUSCITATE. Time with Patient: Greater than 30
[2016-10-20 17:01] LABS: Glucose,Whole Blood 236 mg/dL (75-99)
[2016-10-20] MEDS: LEVOFLOXACIN 750 MG TAB PO SCH (17:34)
[2016-10-20] MEDS ORDERED: LEVOFLOXACIN 750MG-D5W PMX 750 MG in DEXTROSE/WATER 1 150ML.BAG IVPB SCH (20:00)
[2016-10-20] MEDS: ATORVASTATIN 20 MG TAB PO SCH (20:26)
[2016-10-20 20:46] LABS: Glucose,Whole Blood 269 mg/dL (75-99)
[2016-10-21 06:38] LABS: Glucose,Whole Blood 186 mg/dL (75-99)
[2016-10-21] MEDS: INSULIN LISPRO (humaLOG) 300 UNIT/3 ML VIAL SQ SCH ×4 (06:53→20:45)
[2016-10-21] MEDS: IPRATROPIUM-ALBUTEROL 3 ML NEB INHALATION SCH ×4 (07:15→19:28)
[2016-10-21 07:45] LABS: Anisocytosis Slight; CH 30.7; CHCM 31.8; HCT 35.6 % (39.0-53.0); HDW 2.89; HGB 11.4 gm/dL (13.0-17.5); Hypochromasia Slight; MCH 31.2 pg (25.0-35.0); MCHC 32.1 g/dL (31.0-37.0); MCV 97.2 fL (80.0-100.0); Macrocytosis Slight; Mean Platelet Volume 11.3; RBC 3.66 m/uL (4.30-5.90); RDW 16.9 % (11.5-15.5); WBC 12.5 k/uL (3.8-10.6)
[2016-10-21 08:04] LABS: Anion Gap 13 mmol/L; Blood Urea Nitrogen 36 mg/dL (9-20); Calcium 11.1 mg/dL (8.4-10.2); Carbon Dioxide 35 mmol/L (22-30); Chloride 101 mmol/L (98-107); Glucose 177 mg/dL (74-99); Non-African American GFR(MDRD) >60 (>60 ml/min/1.73 sqM); Sodium 149 mmol/L (137-145)
[2016-10-21] MEDS: PIPERACILLIN-TAZOBACTAM 3.375 GM in DEXTROSE/WATER 1 50ML.BAG IVPB SCH ×3 (08:09→23:50)
[2016-10-21] MEDS: FUROSEMIDE 10 MG/ML 4 ML VIAL IV SCH (08:09)
[2016-10-21] MEDS: INSULIN DETEMIR 100 UNIT/ML 10 ML VIAL SQ SCH ×2 (08:09→18:00)
[2016-10-21 08:11] LABS: Potassium 2.8 mmol/L (3.5-5.1)
--- NOTE | 2016-10-21 08:13 | US ---
EXAMINATION TYPE: US abdomen complete DATE OF EXAM: 10/21/2016 7:46 AM COMPARISON: No previous CLINICAL HISTORY: ruq mass. EXAM MEASUREMENTS: Liver Length: 15.8 cm Gallbladder Wall: surgically absent CBD: 0.3 cm Spleen: not seen Right Kidney: 10.6 x 4.8 x 4.7 cm Left Kidney: 11.2 x 5.8 x 5.9 cm Findings: Pancreas: obscured by overlying midline bowel gas Liver: scanned intercostally, limited by rib shadowing, visualized portions appear wnl Gallbladder: surgically absent Evidence for sonographic Corona's sign: no CBD: visualized portions wnl, limited by overlying bowel gas Spleen: obscured by rib shadowing and overlying bowel gas Right Kidney: visualized portions wnl, limited by rib shadowing and overlying bowel gas Left Kidney: visualized portions wnl, limited by rib shadowing and overlying bowel gas Upper IVC: wnl Abd Aorta: proximal and mid portions obscured by overlying midline bowel gas, partial visualization of distal portion appears wnl Midline abdomen palpable area: 14.0 x 6.6 x 17.5cm hypoechoic non vascular solid mass The liver is homogenous. The intrahepatic portion of the IVC and proximal abdominal aorta are within normal limits. There is no evidence of cholelithiasis. Common bile duct is unremarkable. The visu alized portions of the pancreas are homogenous. The spleen is unremarkable. Kidneys are symmetric a nd free of hydronephrosis. No renal lesions are seen. IMPRESSION: 1.14.0 x 6.6 x 17.5cm hypoechoic non vascular solid mass midline abdomen at the site of palpable abn ormality. Further evaluation with CT is recommended.
--- NOTE | 2016-10-21 11:03 | FL ---
COMPARISON: NONE HISTORY: Patient A number of thin and thick substances were ingested under the care of the department of speech pathol ogy. There is penetration with thin barium. Remaining substances demonstrated no evidence of penetra tion or aspiration. IMPRESSION: 1. Penetration with thin barium.
[2016-10-21] MEDS: ASPIRIN 325 MG TAB PO SCH (11:17)
[2016-10-21] MEDS: METOPROLOL TARTRATE 50 MG TAB PO SCH ×2 (11:17→20:40)
[2016-10-21] MEDS: LEVOTHYROXINE 125 MCG TAB PO SCH (11:17)
[2016-10-21] MEDS: LOSARTAN 50 MG TAB PO SCH (11:18)
[2016-10-21] MEDS: SPIRONOLACTONE 25 MG TAB PO SCH (11:18)
[2016-10-21 12:14] LABS: Glucose,Whole Blood 196 mg/dL (75-99)
[2016-10-21] MEDS: POTASSIUM CHLORIDE 10 MEQ, LIDOCAINE 2% INJ 10 MG in SODIUM CHLORIDE 0.9% 100 ML IV SCH ×3 (13:26→16:07)
--- NOTE | 2016-10-21 13:44 | P.PN ---
Subjective Principal diagnosis: Acute aspiration pneumonia and congestive heart failure History of present illness: This is an 86-year-old white male with history of coronary artery disease, prior bypass surgery over 15 years ago, history of ischemic cardiomyopathy, previous AICD implantation, history of hypertension diabetes hyperlipidemia CVA , patient is mostly bedridden, has not been ambulatory for quite some time. Patient is staying at a detention. Patient has been noted to have productive cough, shortness of breath, and progressive weakness. He was brought into the ER, and he was noted to have some mild congestive changes noted on the chest x-ray. He had slight leukocytosis with WBC count of 15.4, his BNP level was elevated. And his troponins were also noted to be elevated. Upon further questioning and upon evaluation at bedside, I strongly felt that the patient is having intermittent episodes of aspiration. As he was getting sips of water by his daughter, patient was having significant cough and barky type of cough, felt to be exacerbated by swallowing water. Hence I recommended a swallow evaluation on this patient. In the meantime he is being followed by cardiology for his mild congestive heart failure I strongly believe that the patient is aspirating. The patient himself is a very poor historian, information about the patient was obtained from his daughter at bedside. Patient was reevaluated today on 10/21/2016. When I saw him yesterday, I felt a large mass in the right upper quadrant area of the abdomen. And I recommended ultrasound of the abdomen which she'll remain off showed a large mass, and that needs to be further investigated. CT of the abdomen and pelvis was ordered today, and the patient may eventually need a CT-guided needle biopsy. He is known to have history of pancreatic cancer and he had a previous surgery I expect it was a Whipple's surgery. At any rate patient failed his a swallow evaluation, and that goes to point more and more to the possibility of aspiration pneumonia on presentation. Patient is refusing a PEG tube placement. Today I had a long discussion with his daughter at bedside, and obviously there are some any issues to be addressed on this patient not to mention this mass in the abdomen which is most likely malignant unless proven otherwise. Labs were reviewed and his sodium seems to be coming up, potassium is low that is to be addressed. I changes main IV fluid to D5W and we will run it at 50 mL per hour considering his LV dysfunction. Objective - Vital Signs Vital signs: Vital Signs Temp 97.5 F L 10/21/16 11:15 Pulse 80 10/21/16 11:46 Resp 20 10/21/16 11:16 BP 137/84 10/21/16 11:15 Pulse Ox 94 L 10/21/16 11:15 Intake & Output 10/20/16 10/21/16 10/21/16 18:59 06:59 18:59 Intake Total 430 100 Output Total 850 1500 1000 Balance -420 -1400 -1000 Intake: IV 80 100 .9 @ 20 80 Piperacillin-Tazobactam 3 100 .375 gm In Dextrose/Water 1 50ml.bag @ 12.5 mls/hr IVPB Q8HR [facility] Rx#: [id number] Intake, IV Titration 50 Amount Piperacillin-Tazobactam 3 50 .375 gm In Dextrose/Water 1 50ml.bag @ 12.5 mls/hr IVPB Q8HR [facility] Rx#: [id number] Oral 300 Output: Urine 850 1500 1000 Uretheral (Johnson) 850 1000 Other: Voiding Method Indwelling Catheter Indwelling Catheter Indwelling Catheter # Bowel Movements 1 1 - Exam HEENT: No neck masses no JVD, no thyromegaly, no stridor. HEART EXAMINATION: S1 and S2 systolic murmur is heard. CHEST EXAMINATION: Lungs reveal scattered coarse rhonchi and wheezes throughout. ABDOMEN: Soft, nontender. Bowel sounds are heard. Palpable mass noted in the right upper quadrant, correlates with the findings of the ultrasound of the abdomen and pelvis. CT is pending. EXTREMITIES: 1 + peripheral pulses with trace evidence of peripheral edema and no calf tenderness noted. NEUROLOGIC patient is awake, sleepy , slightly confused - Labs CBC & Chem 7: 10/21/16 06:50 10/21/16 06:41 Labs: Abnormal Lab Results - Last 24 Hours (Table) 10/20/16 10/20/16 10/20/16 Range/Units 03:44 14:51 16:56 WBC (3.8-10.6) k/uL RBC (4.30-5.90) m/uL Hgb (13.0-17.5) gm/dL Hct (39.0-53.0) % RDW (11.5-15.5) % Sodium (137-145) mmol/L Potassium (3.5-5.1) mmol/L Carbon Dioxide (22-30) mmol/L BUN (9-20) mg/dL Glucose (74-99) mg/dL POC Glucose (mg/dL) 236 H (75-99) mg/dL Hemoglobin A1c 6.3 H (4.2-6.1) % Plasma Lactic Acid Sae 3.2 H* (0.7-2.0) mmol/L Calcium (8.4-10.2) mg/dL 10/20/16 10/21/16 10/21/16 Range/Units 20:44 06:35 06:41 WBC (3.8-10.6) k/uL RBC (4.30-5.90) m/uL Hgb (13.0-17.5) gm/dL Hct (39.0-53.0) % RDW (11.5-15.5) % Sodium 149 H (137-145) mmol/L Potassium 2.8 L* (3.5-5.1) mmol/L Carbon Dioxide 35 H (22-30) mmol/L BUN 36 H (9-20) mg/dL Glucose 177 H (74-99) mg/dL POC Glucose (mg/dL) 269 H 186 H (75-99) mg/dL Hemoglobin A1c (4.2-6.1) % Plasma Lactic Acid Sae (0.7-2.0) mmol/L Calcium 11.1 H (8.4-10.2) mg/dL 10/21/16 10/21/16 Range/Units 06:50 11:46 WBC 12.5 H (3.8-10.6) k/uL RBC 3.66 L (4.30-5.90) m/uL Hgb 11.4 L (13.0-17.5) gm/dL Hct 35.6 L (39.0-53.0) % RDW 16.9 H (11.5-15.5) % Sodium (137-145) mmol/L Potassium (3.5-5.1) mmol/L Carbon Dioxide (22-30) mmol/L BUN (9-20) mg/dL Glucose (74-99) mg/dL POC Glucose (mg/dL) 196 H (75-99) mg/dL Hemoglobin A1c (4.2-6.1) % Plasma Lactic Acid Sae (0.7-2.0) mmol/L Calcium (8.4-10.2) mg/dL Assessment and Plan Plan: Impression: 1 strongly suspect aspiration pneumonia. Patient is on proper antibiotics, he failed his swallow evaluation, and his refusing PEG tube placement. 2 suspect cardiomyopathy and mild component of heart failure mostly systolic in nature knowing that the patient's EF is 30 to 35 percent at best. 3 abdominal mass, most likely malignant unless proven otherwise, patient may eventually need CT-guided needle biopsy. Patient is known to have history of pancreatic cancer and previous surgery. 3 multiple comorbidities including coronary artery disease and previous CABG in 2007. History of diabetes. History of hyperlipidemia. History of AICD placement for ischemic cardiomyopathy. History of previous CVA. History of peripheral vessel occlusive disease. Recommendation: Continue present treatment plan, agree with antibiotics as ordered, continue bronchodilators, CT of the abdomen and pelvis is pending, may eventually require CT-guided needle biopsy of his abdominal mass. Prognosis is extremely poor. Discussed his condition with his daughter at bedside, remains DO NOT RESUSCITATE, we'll continue to follow. Time with Patient: Less than 30
--- NOTE | 2016-10-21 13:52 | CT ---
EXAMINATION TYPE: CT abdomen pelvis wo con DATE OF EXAM: 10/21/2016 1:06 PM COMPARISON: NONE HISTORY: generalized pain CT DLP: 951 mGycm Automated exposure control for dose reduction was used. TECHNIQUE: Helical acquisition of images was performed from the lung bases through the pelvis. FINDINGS: LUNG BASES: Subsegmental changes are seen with calcified granuloma in the right lower lobe. More conf luent consolidation in the right lower lobe is suspicious for pneumonia. Follow-up to resolution to e xclude mass. LIVER/GB: No significant abnormality is appreciated. PANCREAS: No significant abnormality is seen. SPLEEN: The spleen is not seen with certainty. There does appear to be a rounded area of soft tissue mass in the left upper quadrant measuring 2.9 cm which may represent an residual splenule. Correlate clinically to exclude underlying neoplasm or adenopathy.. ADRENALS: No significant abnormality is seen. KIDNEYS: No significant abnormality is seen. URINARY BLADDER: Johnson catheter is seen with air in the bladder which appears nondistended.. ADENOPATHY: None visualized. OSSEOUS STRUCTURES: Scoliosis and severe multilevel degenerative disc disease seen. Bilateral hip ar thropathy noted. Sternotomy wires noted. Cardiac leads are also noted. Multilevel canal stenosis susp ected. BOWEL: Nonspecific gas pattern. Retained fecal debris noted. OTHER: There is a 10 x 13 x 19 cm subcutaneous fluid next density along the anterior abdominal wall. This could be related to a hematoma or complicated seroma. Neoplasm not entirely excluded as the keyona ures approximately 45 Hounsfield units. Report called to the patient's nurse. Fat-containing inguinal hernias noted bilaterally. There is a anterior abdominal wall hernia with no evidence of obstruction. IMPRESSION: 1. There is a 10 x 13 x 19 cm subcutaneous anterior abdominal wall mass, hematoma or complicated sero ma. No surrounding inflammatory change therefore abscess felt less likely but not excluded. Correlate clinically. 2. Right lower lobe pneumonia. Follow resolution to exclude other etiologies. 3. Rounded soft tissue mass left upper quadrant with absence of the spleen suspect represents residua l splenule. Correlate clinically to exclude underlying mass or adenopathy.
--- NOTE | 2016-10-21 15:06 | P.PN ---
Subjective Principal diagnosis: Congestive heart failure This is an 86-year-old gentleman with known history of coronary artery disease, prior bypass surgery, ischemic cardiomyopathy with prior AICD implantation, hypertension, diabetes, hyperlipidemia, PAD, prior CVA, who presented to the hospital mainly with complaints of a persistent productive cough, shortness of breath, and progressive weakness. Chest x-ray on admission revealed mild congestive heart failure. Patient was initiated on IV Lasix, he' s having excellent urine output. Creatinine today 1.1, potassium 2.8, replaced. He is having some issues with swallowing and is scheduled to undergo a swallow evaluation today. Objective - Vital Signs Vital signs: Vital Signs Temp 97.5 F L 10/21/16 11:15 Pulse 80 10/21/16 11:46 Resp 20 10/21/16 11:16 BP 137/84 10/21/16 11:15 Pulse Ox 94 L 10/21/16 11:15 Intake & Output 10/20/16 10/21/16 10/21/16 18:59 06:59 18:59 Intake Total 430 100 240 Output Total 850 1500 1000 Balance -420 -1400 -760 Intake: IV 80 100 .9 @ 20 80 Piperacillin-Tazobactam 3 100 .375 gm In Dextrose/Water 1 50ml.bag @ 12.5 mls/hr IVPB Q8HR [facility] Rx#: [id number] Intake, IV Titration 50 Amount Piperacillin-Tazobactam 3 50 .375 gm In Dextrose/Water 1 50ml.bag @ 12.5 mls/hr IVPB Q8HR [facility] Rx#: [id number] Oral 300 240 Output: Urine 850 1500 1000 Uretheral (Johnson) 850 1000 Other: Voiding Method Indwelling Catheter Indwelling Catheter Indwelling Catheter # Bowel Movements 1 1 - Exam PHYSICAL EXAMINATION: HEENT: Head is atraumatic, normocephalic. Pupils equal, round. Neck is supple. There is no elevated jugular venous pressure. HEART EXAMINATION: S1 and S2 systolic murmur is heard. CHEST EXAMINATION: Lungs reveal scattered coarse rhonchi and wheezes throughout. ABDOMEN: Soft, nontender. Bowel sounds are heard. No organomegaly noted. EXTREMITIES: 1 + peripheral pulses with trace evidence of peripheral edema and no calf tenderness noted. NEUROLOGIC patient is awake, sleepy ,oriented -2. - Labs CBC & Chem 7: 10/21/16 06:50 10/21/16 06:41 Labs: Abnormal Lab Results - Last 24 Hours (Table) 10/20/16 10/20/16 10/20/16 Range/Units 14:51 16:56 20:44 WBC (3.8-10.6) k/uL RBC (4.30-5.90) m/uL Hgb (13.0-17.5) gm/dL Hct (39.0-53.0) % RDW (11.5-15.5) % Sodium (137-145) mmol/L Potassium (3.5-5.1) mmol/L Carbon Dioxide (22-30) mmol/L BUN (9-20) mg/dL Glucose (74-99) mg/dL POC Glucose (mg/dL) 236 H 269 H (75-99) mg/dL Plasma Lactic Acid Sae 3.2 H* (0.7-2.0) mmol/L Calcium (8.4-10.2) mg/dL 10/21/16 10/21/16 10/21/16 Range/Units 06:35 06:41 06:50 WBC 12.5 H (3.8-10.6) k/uL RBC 3.66 L (4.30-5.90) m/uL Hgb 11.4 L (13.0-17.5) gm/dL Hct 35.6 L (39.0-53.0) % RDW 16.9 H (11.5-15.5) % Sodium 149 H (137-145) mmol/L Potassium 2.8 L* (3.5-5.1) mmol/L Carbon Dioxide 35 H (22-30) mmol/L BUN 36 H (9-20) mg/dL Glucose 177 H (74-99) mg/dL POC Glucose (mg/dL) 186 H (75-99) mg/dL Plasma Lactic Acid Sae (0.7-2.0) mmol/L Calcium 11.1 H (8.4-10.2) mg/dL 10/21/16 Range/Units 11:46 WBC (3.8-10.6) k/uL RBC (4.30-5.90) m/uL Hgb (13.0-17.5) gm/dL Hct (39.0-53.0) % RDW (11.5-15.5) % Sodium (137-145) mmol/L Potassium (3.5-5.1) mmol/L Carbon Dioxide (22-30) mmol/L BUN (9-20) mg/dL Glucose (74-99) mg/dL POC Glucose (mg/dL) 196 H (75-99) mg/dL Plasma Lactic Acid Sae (0.7-2.0) mmol/L Calcium (8.4-10.2) mg/dL Assessment and Plan Plan: Assessment and plan #1 symptoms of productive cough with associated shortness of breath, likely a combination of acute tracheobronchitis and mild congestive heart failure, systolic in nature acute on chronic. Most recent echocardiogram with Doppler study was performed in June of last year which revealed an ejection fraction of 30-35%. #2 known history of coronary artery disease with prior bypass surgery in 2007 #3 diabetes #4 hypertension # 5 ischemic cardiomyopathy with prior AICD #6 hyperlipidemia #7 prior CVA #8 PAD #9 abnormal troponins, not consistent with acute coronary syndrome, likely secondary to oxygen supply and demand mismatch, patient denies having any chest pain. Most recent dobutamine echocardiographic study was performed in 2014. Plan From cardiology's perspective, we will recommend to continue current dose of IV Lasix. We'll check lytes BUN and creatinine in the morning. DNP note has been reviewed, I agree with a documented findings and plan of care. Patient was seen and examined.
[2016-10-21] MEDS: DEXTROSE 5% IN WATER 1,000 ML IV SCH (16:08)
--- NOTE | 2016-10-21 16:14 | P.PN ---
Subjective Patient presented with worsening shortness of breath. Still having some shortness of breath. However is down to 6 L nasal cannula. Failed swallow evaluation. Denies any chest pain or shortness breath. Denies any nausea or vomiting. Denies any abdominal pain. Has had bowel movement. Denies difficulty urinating. Objective - Vital Signs Vital signs: Vital Signs Temp 97.5 F L 10/21/16 11:15 Pulse 78 10/21/16 15:40 Resp 20 10/21/16 11:16 BP 137/84 10/21/16 11:15 Pulse Ox 94 L 10/21/16 11:15 Intake & Output 10/20/16 10/21/16 10/21/16 18:59 06:59 18:59 Intake Total 430 100 240 Output Total 850 1500 1000 Balance -420 -1400 -760 Weight 84.5 kg Intake: IV 80 100 .9 @ 20 80 Piperacillin-Tazobactam 3 100 .375 gm In Dextrose/Water 1 50ml.bag @ 12.5 mls/hr IVPB Q8HR [facility] Rx#: [id number] Intake, IV Titration 50 Amount Piperacillin-Tazobactam 3 50 .375 gm In Dextrose/Water 1 50ml.bag @ 12.5 mls/hr IVPB Q8HR [facility] Rx#: [id number] Oral 300 240 Output: Urine 850 1500 1000 Uretheral (Johnson) 850 1000 Other: Voiding Method Indwelling Catheter Indwelling Catheter Indwelling Catheter # Bowel Movements 1 1 - Exam Head normocephalic Neck supple Lungs coarse breath sounds Heart regular rate and rhythm S1-S2, no rub or gallop Abdomen is soft nontender nondistended positive bowel sounds no hepatosplenomegaly. Palpable mass nontender in liver Extremities no edema Neuro alert and orientated - Labs CBC & Chem 7: 10/21/16 06:50 10/21/16 06:41 Labs: Abnormal Lab Results - Last 24 Hours (Table) 10/20/16 10/20/16 10/20/16 Range/Units 14:51 16:56 20:44 WBC (3.8-10.6) k/uL RBC (4.30-5.90) m/uL Hgb (13.0-17.5) gm/dL Hct (39.0-53.0) % RDW (11.5-15.5) % Sodium (137-145) mmol/L Potassium (3.5-5.1) mmol/L Carbon Dioxide (22-30) mmol/L BUN (9-20) mg/dL Glucose (74-99) mg/dL POC Glucose (mg/dL) 236 H 269 H (75-99) mg/dL Plasma Lactic Acid Sae 3.2 H* (0.7-2.0) mmol/L Calcium (8.4-10.2) mg/dL 10/21/16 10/21/16 10/21/16 Range/Units 06:35 06:41 06:50 WBC 12.5 H (3.8-10.6) k/uL RBC 3.66 L (4.30-5.90) m/uL Hgb 11.4 L (13.0-17.5) gm/dL Hct 35.6 L (39.0-53.0) % RDW 16.9 H (11.5-15.5) % Sodium 149 H (137-145) mmol/L Potassium 2.8 L* (3.5-5.1) mmol/L Carbon Dioxide 35 H (22-30) mmol/L BUN 36 H (9-20) mg/dL Glucose 177 H (74-99) mg/dL POC Glucose (mg/dL) 186 H (75-99) mg/dL Plasma Lactic Acid Sae (0.7-2.0) mmol/L Calcium 11.1 H (8.4-10.2) mg/dL 10/21/16 Range/Units 11:46 WBC (3.8-10.6) k/uL RBC (4.30-5.90) m/uL Hgb (13.0-17.5) gm/dL Hct (39.0-53.0) % RDW (11.5-15.5) % Sodium (137-145) mmol/L Potassium (3.5-5.1) mmol/L Carbon Dioxide (22-30) mmol/L BUN (9-20) mg/dL Glucose (74-99) mg/dL POC Glucose (mg/dL) 196 H (75-99) mg/dL Plasma Lactic Acid Sae (0.7-2.0) mmol/L Calcium (8.4-10.2) mg/dL Assessment and Plan Plan: 1. Acute tracheobronchitis with possible aspiration pneumonia. Continue with antibiotics. Pulmonary service following. Patient failed his swallow evaluation. He is refusing a PEG tube placement 2. Acute systolic CHF exacerbation. EF of 30-35%. Followed by cardiology. Continue IV Lasix 3. Abdominal mass noted on abdominal ultrasound. A computed tomography scan of the abdomen or was ordered by pulmonary service. Await results. Note that patient has had previous pancreatic cancer and previous surgery 4. Abnormal troponins, not consistent with acute coronary syndrome. Likely secondary to oxygen supply and demand mismatch. Evaluated by cardiology. 5. Essential hypertension 6. Insulin-dependent diabetes mellitus 7. History of ischemic cardiopathy with prior AICD 8. History of CVA
[2016-10-21 16:53] LABS: Glucose,Whole Blood 270 mg/dL (75-99)
[2016-10-21] MEDS: LEVOFLOXACIN 750 MG TAB PO SCH (18:00)
[2016-10-21] MEDS: ATORVASTATIN 20 MG TAB PO SCH (20:40)
[2016-10-21 20:44] LABS: Glucose,Whole Blood 276 mg/dL (75-99)
[2016-10-22] MEDS: LOSARTAN 50 MG TAB PO SCH (05:49)
[2016-10-22] MEDS: LEVOTHYROXINE 125 MCG TAB PO SCH (05:49)
[2016-10-22 06:33] LABS: Anisocytosis Slight; Basophils % (A) 1 %; CH 30.8; CHCM 31.1; Eosinophils % (A) 0 %; HCT 36.3 % (39.0-53.0); HDW 2.88; HGB 11.1 gm/dL (13.0-17.5); Hypochromasia Slight; Luc # (Auto) 0.31; Luc % (Auto) 4; Lymphocytes # (A) 1.9 k/uL (1.0-4.8); Lymphocytes % (A) 21 %; MCH 30.4 pg (25.0-35.0); MCHC 30.6 g/dL (31.0-37.0); MCV 99.3 fL (80.0-100.0); Macrocytosis Slight; Mean Platelet Volume 10.3; Monocytes # (A) 0.4 k/uL (0-1.0); Monocytes % (A) 4 %; Neutrophils # (A) 6.3 k/uL (1.3-7.7); Neutrophils % (A) 70 %; RBC 3.66 m/uL (4.30-5.90); RDW 16.9 % (11.5-15.5); WBC (Perox) 9.57
[2016-10-22 06:49] LABS: ALT 39 U/L (21-72); AST 46 U/L (17-59); Alkaline Phosphatase 70 U/L (38-126); Anion Gap 12 mmol/L; Blood Urea Nitrogen 40 mg/dL (9-20); Carbon Dioxide 34 mmol/L (22-30); Chloride 105 mmol/L (98-107); Glucose 223 mg/dL (74-99); Non-African American GFR(MDRD) >60 (>60 ml/min/1.73 sqM); Sodium 151 mmol/L (137-145); Total Bilirubin 0.8 mg/dL (0.2-1.3); Total Protein 7.5 g/dL (6.3-8.2)
[2016-10-22 06:51] LABS: Potassium 3.1 mmol/L (3.5-5.1)
[2016-10-22 06:54] LABS: Glucose,Whole Blood 204 mg/dL (75-99)
[2016-10-22] MEDS: INSULIN LISPRO (humaLOG) 300 UNIT/3 ML VIAL SQ SCH ×4 (06:58→21:54)
[2016-10-22] MEDS: DEXTROSE 5% IN WATER 1,000 ML IV SCH (09:07)
[2016-10-22] MEDS: ASPIRIN 325 MG TAB PO SCH (09:08)
[2016-10-22] MEDS: METOPROLOL TARTRATE 50 MG TAB PO SCH ×2 (09:08→20:16)
[2016-10-22] MEDS: SPIRONOLACTONE 25 MG TAB PO SCH (09:08)
[2016-10-22] MEDS: FUROSEMIDE 10 MG/ML 4 ML VIAL IV SCH (09:09)
[2016-10-22] MEDS: INSULIN DETEMIR 100 UNIT/ML 10 ML VIAL SQ SCH ×2 (09:12→16:59)
[2016-10-22] MEDS: PIPERACILLIN-TAZOBACTAM 3.375 GM in DEXTROSE/WATER 1 50ML.BAG IVPB SCH ×3 (09:14→23:50)
[2016-10-22] MEDS: IPRATROPIUM-ALBUTEROL 3 ML NEB INHALATION SCH ×4 (09:26→20:24)
[2016-10-22] MEDS ORDERED: Potassium Replacement Protocol 1 EACH MISC MISCELLANE PRN ×2 (09:43→21:42)
[2016-10-22] MEDS: POTASSIUM CHLORIDE ER 20 MEQ TAB.ER PO SCH ×2 (10:06→11:28)
[2016-10-22 11:11] LABS: Glucose,Whole Blood 292 mg/dL (75-99)
[2016-10-22] MEDS ORDERED: DEXTROSE 5% IN WATER 1,000 ML IV ONE (11:56)
--- NOTE | 2016-10-22 11:58 | P.PN ---
Subjective Principal diagnosis: Congestive heart failure This is an 86-year-old gentleman with known history of coronary artery disease, prior bypass surgery, ischemic cardiomyopathy with prior AICD implantation, hypertension, diabetes, hyperlipidemia, PAD, prior CVA, who presented to the hospital mainly with complaints of a persistent productive cough, shortness of breath, and progressive weakness. Chest x-ray on admission revealed mild congestive heart failure. Patient was initiated on IV Lasix, he' s having excellent urine output. Creatinine today 1.05, potassium 3.1, replaced. More alert today overall. We'll continue current dose of IV Lasix. Decrease aspirin to 81 mg daily. Decrease IV fluids to KVO. Objective - Vital Signs Vital signs: Vital Signs Temp 98.5 F 10/22/16 08:00 Pulse 84 10/22/16 09:44 Resp 18 10/22/16 08:00 BP 188/115 10/22/16 08:00 Pulse Ox 99 10/22/16 08:00 Intake & Output 10/21/16 10/22/16 10/22/16 18:59 06:59 18:59 Intake Total 1060 230 118 Output Total 1300 Balance -240 230 118 Weight 84.5 kg 84 kg Intake: IV 50 Piperacillin-Tazobactam 3 50 .375 gm In Dextrose/Water 1 50ml.bag @ 12.5 mls/hr IVPB Q8HR [facility] Rx#: [id number] Intake, IV Titration 700 Amount Dextrose 5% in Water 1, 300 000 ml @ 50 mls/hr IV . Q20H [facility] Rx#:[id number] Piperacillin-Tazobactam 3 100 .375 gm In Dextrose/Water 1 50ml.bag @ 12.5 mls/hr IVPB Q8HR [facility] Rx#: [id number] Potassium Chloride 10 meq 300 Lidocaine 2% Inj 10 mg In Sodium Chloride 0.9% 100 ml @ 100 mls/hr IV Q1HR [facility] Rx#:[id number] Oral 360 180 118 Output: Urine 1300 Uretheral (Johnson) 1300 Other: Voiding Method Indwelling Catheter Indwelling Catheter Indwelling Catheter # Bowel Movements 1 - Exam PHYSICAL EXAMINATION: HEENT: Head is atraumatic, normocephalic. Pupils equal, round. Neck is supple. There is no elevated jugular venous pressure. HEART EXAMINATION: S1 and S2 systolic murmur is heard. CHEST EXAMINATION: Lungs reveal scattered coarse rhonchi and wheezes throughout. ABDOMEN: Soft, nontender. Bowel sounds are heard. No organomegaly noted. EXTREMITIES: 1 + peripheral pulses with trace evidence of peripheral edema and no calf tenderness noted. NEUROLOGIC patient is awake, sleepy ,oriented -2. - Labs CBC & Chem 7: 10/22/16 06:12 10/22/16 06:12 Labs: Abnormal Lab Results - Last 24 Hours (Table) 10/21/16 10/21/16 10/21/16 Range/Units 11:46 16:39 20:41 RBC (4.30-5.90) m/uL Hgb (13.0-17.5) gm/dL Hct (39.0-53.0) % MCHC (31.0-37.0) g/dL RDW (11.5-15.5) % Sodium (137-145) mmol/L Potassium (3.5-5.1) mmol/L Carbon Dioxide (22-30) mmol/L BUN (9-20) mg/dL Glucose (74-99) mg/dL POC Glucose (mg/dL) 196 H 270 H 276 H (75-99) mg/dL Calcium (8.4-10.2) mg/dL Albumin (3.5-5.0) g/dL 10/22/16 10/22/16 10/22/16 Range/Units 06:12 06:12 06:41 RBC 3.66 L (4.30-5.90) m/uL Hgb 11.1 L (13.0-17.5) gm/dL Hct 36.3 L (39.0-53.0) % MCHC 30.6 L (31.0-37.0) g/dL RDW 16.9 H (11.5-15.5) % Sodium 151 H (137-145) mmol/L Potassium 3.1 L (3.5-5.1) mmol/L Carbon Dioxide 34 H (22-30) mmol/L BUN 40 H (9-20) mg/dL Glucose 223 H (74-99) mg/dL POC Glucose (mg/dL) 204 H (75-99) mg/dL Calcium 11.0 H (8.4-10.2) mg/dL Albumin 3.0 L (3.5-5.0) g/dL 10/22/16 Range/Units 11:05 RBC (4.30-5.90) m/uL Hgb (13.0-17.5) gm/dL Hct (39.0-53.0) % MCHC (31.0-37.0) g/dL RDW (11.5-15.5) % Sodium (137-145) mmol/L Potassium (3.5-5.1) mmol/L Carbon Dioxide (22-30) mmol/L BUN (9-20) mg/dL Glucose (74-99) mg/dL POC Glucose (mg/dL) 292 H (75-99) mg/dL Calcium (8.4-10.2) mg/dL Albumin (3.5-5.0) g/dL Assessment and Plan Plan: Assessment and plan #1 symptoms of productive cough with associated shortness of breath, likely a combination of acute tracheobronchitis and mild congestive heart failure, systolic in nature acute on chronic. Most recent echocardiogram with Doppler study was performed in June of last year which revealed an ejection fraction of 30-35%. #2 known history of coronary artery disease with prior bypass surgery in 2007 #3 diabetes #4 hypertension # 5 ischemic cardiomyopathy with prior AICD #6 hyperlipidemia #7 prior CVA #8 PAD #9 abnormal troponins, not consistent with acute coronary syndrome, likely secondary to oxygen supply and demand mismatch, patient denies having any chest pain. Most recent dobutamine echocardiographic study was performed in 2014. Plan From cardiology's perspective, we will recommend to continue current dose of IV Lasix. Decrease aspirin 81 mg daily. Decrease IV fluids to KVO. We'll check lytes BUN and creatinine in the morning. DNP note has been reviewed, I agree with a documented findings and plan of care. Patient was seen and examined.
--- NOTE | 2016-10-22 12:35 | P.PN ---
Subjective This is an 86-year-old white male with history of coronary artery disease, prior bypass surgery over 15 years ago, history of ischemic cardiomyopathy, previous AICD implantation, history of hypertension diabetes hyperlipidemia CVA , patient is mostly bedridden, has not been ambulatory for quite some time. Patient is staying at a long-term. Patient has been noted to have productive cough, shortness of breath, and progressive weakness. He was brought into the ER, and he was noted to have some mild congestive changes noted on the chest x-ray. He had slight leukocytosis with WBC count of 15.4, his BNP level was elevated. And his troponins were also noted to be elevated. Upon further questioning and upon evaluation at bedside, I strongly felt that the patient is having intermittent episodes of aspiration. As he was getting sips of water by his daughter, patient was having significant cough and barky type of cough, felt to be exacerbated by swallowing water. Hence I recommended a swallow evaluation on this patient. In the meantime he is being followed by cardiology for his mild congestive heart failure I strongly believe that the patient is aspirating. The patient himself is a very poor historian, information about the patient was obtained from his daughter at bedside. Patient was reevaluated today on 10/21/2016. When I saw him yesterday, I felt a large mass in the right upper quadrant area of the abdomen. And I recommended ultrasound of the abdomen which she'll remain off showed a large mass, and that needs to be further investigated. CT of the abdomen and pelvis was ordered today, and the patient may eventually need a CT-guided needle biopsy. He is known to have history of pancreatic cancer and he had a previous surgery I expect it was a Whipple's surgery. At any rate patient failed his a swallow evaluation, and that goes to point more and more to the possibility of aspiration pneumonia on presentation. Patient is refusing a PEG tube placement. Today I had a long discussion with his daughter at bedside, and obviously there are some any issues to be addressed on this patient not to mention this mass in the abdomen which is most likely malignant unless proven otherwise. Labs were reviewed and his sodium seems to be coming up, potassium is low that is to be addressed. I changes main IV fluid to D5W and we will run it at 50 mL per hour considering his LV dysfunction. The patient is seen again today 10/22/2016 in follow-up on the selective care unit. He is currently awake and alert in no acute distress. He is still requiring 6 L/m per nasal cannula to maintain O2 saturations in the 90s. He is currently afebrile. He denies any significant abdominal discomfort. The computed tomography scan of the abdomen and pelvis did reveal a 10 x 13 x 19 cm subcutaneous anterior abdominal wall mass, hematoma or complicated seroma. There continues to be evidence of the right lower lobe pneumonia. There is also a rounded soft tissue mass in the left upper quadrant with absence of the spleen suspect residual splenule versus underlying mass or adenopathy. His sodium continues to climb currently at 151, potassium 3.1. His white count has recovered currently 9.0. Objective - Vital Signs Vital signs: Vital Signs Temp 97.9 F 10/22/16 12:00 Pulse 78 10/22/16 12:00 Resp 18 10/22/16 12:00 BP 179/97 10/22/16 12:00 Pulse Ox 98 10/22/16 12:00 Intake & Output 10/21/16 10/22/16 10/22/16 18:59 06:59 18:59 Intake Total 1060 230 118 Output Total 1300 Balance -240 230 118 Weight 84.5 kg 84 kg Intake: IV 50 Piperacillin-Tazobactam 3 50 .375 gm In Dextrose/Water 1 50ml.bag @ 12.5 mls/hr IVPB Q8HR [facility] Rx#: [id number] Intake, IV Titration 700 Amount Dextrose 5% in Water 1, 300 000 ml @ 50 mls/hr IV . Q20H [facility] Rx#:[id number] Piperacillin-Tazobactam 3 100 .375 gm In Dextrose/Water 1 50ml.bag @ 12.5 mls/hr IVPB Q8HR [facility] Rx#: [id number] Potassium Chloride 10 meq 300 Lidocaine 2% Inj 10 mg In Sodium Chloride 0.9% 100 ml @ 100 mls/hr IV Q1HR [facility]IE Rx#:[id number] Oral 360 180 118 Output: Urine 1300 Uretheral (Johnson) 1300 Other: Voiding Method Indwelling Catheter Indwelling Catheter Indwelling Catheter # Bowel Movements 1 - Exam GENERAL EXAM: Alert, comfortable in no acute distress. HEAD: Normocephalic. EYES: Normal reaction of pupils, equal size. NOSE: Clear with pink turbinates. THROAT: No erythema or exudates. NECK: No masses, no JVD. CHEST: No chest wall deformity. LUNGS: Equal air entry with crackles in the right posterior base. CVS: S1 and S2 normal with a systolic murmur, regular rhythm. ABDOMEN: Palpable mass in the right upper quadrant. Extremities: There is trace peripheral edema. No clubbing, no cyanosis. Peripheral pulses are intact. - Labs CBC & Chem 7: 10/22/16 06:12 10/22/16 06:12 Labs: Abnormal Lab Results - Last 24 Hours (Table) 10/21/16 10/21/16 10/22/16 Range/Units 16:39 20:41 06:12 RBC 3.66 L (4.30-5.90) m/uL Hgb 11.1 L (13.0-17.5) gm/dL Hct 36.3 L (39.0-53.0) % MCHC 30.6 L (31.0-37.0) g/dL RDW 16.9 H (11.5-15.5) % Sodium (137-145) mmol/L Potassium (3.5-5.1) mmol/L Carbon Dioxide (22-30) mmol/L BUN (9-20) mg/dL Glucose (74-99) mg/dL POC Glucose (mg/dL) 270 H 276 H (75-99) mg/dL Calcium (8.4-10.2) mg/dL Albumin (3.5-5.0) g/dL 10/22/16 10/22/16 10/22/16 Range/Units 06:12 06:41 11:05 RBC (4.30-5.90) m/uL Hgb (13.0-17.5) gm/dL Hct (39.0-53.0) % MCHC (31.0-37.0) g/dL RDW (11.5-15.5) % Sodium 151 H (137-145) mmol/L Potassium 3.1 L (3.5-5.1) mmol/L Carbon Dioxide 34 H (22-30) mmol/L BUN 40 H (9-20) mg/dL Glucose 223 H (74-99) mg/dL POC Glucose (mg/dL) 204 H 292 H (75-99) mg/dL Calcium 11.0 H (8.4-10.2) mg/dL Albumin 3.0 L (3.5-5.0) g/dL Assessment and Plan Plan: Impression: 1 strongly suspect aspiration pneumonia. Patient is on proper antibiotics, he failed his swallow evaluation, and his refusing PEG tube placement. 2 suspect cardiomyopathy and mild component of heart failure mostly systolic in nature knowing that the patient's EF is 30 to 35 percent at best. 3 abdominal mass, most likely malignant unless proven otherwise, patient may eventually need CT-guided needle biopsy. Patient is known to have history of pancreatic cancer and previous surgery. 3 multiple comorbidities including coronary artery disease and previous CABG in 2007. History of diabetes. History of hyperlipidemia. History of AICD placement for ischemic cardiomyopathy. History of previous CVA. History of peripheral vessel occlusive disease. Plan: The patient is seen and evaluated by Dr. Avendaño. Computed tomography scan was reviewed. A surgical consultation may be beneficial and possible biopsy for diagnosis of the abdominal mass. Unfortunately, the patient's overall prognosis is quite poor. In the interim we'll continue with his current medications including bronchodilators, antibiotics in the form of Zosyn and Levaquin. He is diuresed with 40 mg of Lasix daily
--- NOTE | 2016-10-22 12:50 | P.PN ---
Subjective Patient presented with worsening shortness of breath. Still having some shortness of breath. However is down to 6 L nasal cannula. Failed swallow evaluation. Denies any chest pain or shortness breath. Denies any nausea or vomiting. Denies any abdominal pain. Has had bowel movement. Denies difficulty urinating. Objective - Vital Signs Vital signs: Vital Signs Temp 98.5 F 10/22/16 08:00 Pulse 84 10/22/16 09:44 Resp 18 10/22/16 08:00 BP 188/115 10/22/16 08:00 Pulse Ox 99 10/22/16 08:00 Intake & Output 10/21/16 10/22/16 10/22/16 18:59 06:59 18:59 Intake Total 1060 230 118 Output Total 1300 Balance -240 230 118 Weight 84.5 kg 84 kg Intake: IV 50 Piperacillin-Tazobactam 3 50 .375 gm In Dextrose/Water 1 50ml.bag @ 12.5 mls/hr IVPB Q8HR [facility] Rx#: [id number] Intake, IV Titration 700 Amount Dextrose 5% in Water 1, 300 000 ml @ 50 mls/hr IV . Q20H [facility] Rx#:[id number] Piperacillin-Tazobactam 3 100 .375 gm In Dextrose/Water 1 50ml.bag @ 12.5 mls/hr IVPB Q8HR [facility] Rx#: [id number] Potassium Chloride 10 meq 300 Lidocaine 2% Inj 10 mg In Sodium Chloride 0.9% 100 ml @ 100 mls/hr IV Q1HR [facility] Rx#:[id number] Oral 360 180 118 Output: Urine 1300 Uretheral (Johnson) 1300 Other: Voiding Method Indwelling Catheter Indwelling Catheter Indwelling Catheter # Bowel Movements 1 - Exam Head normocephalic Neck supple Lungs coarse breath sounds Heart regular rate and rhythm S1-S2, no rub or gallop Abdomen is soft nontender nondistended positive bowel sounds no hepatosplenomegaly. Palpable mass nontender in liver Extremities no edema Neuro alert and orientated - Labs CBC & Chem 7: 10/22/16 06:12 10/22/16 06:12 Labs: Abnormal Lab Results - Last 24 Hours (Table) 10/21/16 10/21/16 10/21/16 Range/Units 11:46 16:39 20:41 RBC (4.30-5.90) m/uL Hgb (13.0-17.5) gm/dL Hct (39.0-53.0) % MCHC (31.0-37.0) g/dL RDW (11.5-15.5) % Sodium (137-145) mmol/L Potassium (3.5-5.1) mmol/L Carbon Dioxide (22-30) mmol/L BUN (9-20) mg/dL Glucose (74-99) mg/dL POC Glucose (mg/dL) 196 H 270 H 276 H (75-99) mg/dL Calcium (8.4-10.2) mg/dL Albumin (3.5-5.0) g/dL 10/22/16 10/22/16 10/22/16 Range/Units 06:12 06:12 06:41 RBC 3.66 L (4.30-5.90) m/uL Hgb 11.1 L (13.0-17.5) gm/dL Hct 36.3 L (39.0-53.0) % MCHC 30.6 L (31.0-37.0) g/dL RDW 16.9 H (11.5-15.5) % Sodium 151 H (137-145) mmol/L Potassium 3.1 L (3.5-5.1) mmol/L Carbon Dioxide 34 H (22-30) mmol/L BUN 40 H (9-20) mg/dL Glucose 223 H (74-99) mg/dL POC Glucose (mg/dL) 204 H (75-99) mg/dL Calcium 11.0 H (8.4-10.2) mg/dL Albumin 3.0 L (3.5-5.0) g/dL 10/22/16 Range/Units 11:05 RBC (4.30-5.90) m/uL Hgb (13.0-17.5) gm/dL Hct (39.0-53.0) % MCHC (31.0-37.0) g/dL RDW (11.5-15.5) % Sodium (137-145) mmol/L Potassium (3.5-5.1) mmol/L Carbon Dioxide (22-30) mmol/L BUN (9-20) mg/dL Glucose (74-99) mg/dL POC Glucose (mg/dL) 292 H (75-99) mg/dL Calcium (8.4-10.2) mg/dL Albumin (3.5-5.0) g/dL Assessment and Plan Plan: 1. possible aspiration pneumonia. Continue with antibiotics. Pulmonary service following. Patient failed his swallow evaluation. He is refusing a PEG tube placement. 2. Acute systolic CHF exacerbation. EF of 30-35%. Followed by cardiology. Continue IV Lasix 3. Abdominal mass noted on abdominal ultrasound. Computed tomography scan of the abdomen showing a 10 x 13 x 19 cm subcutaneous anterior abdominal wall mass , hematoma or complicated seroma. Note that patient has had previous pancreatic cancer and previous surgery 4. Abnormal troponins, not consistent with acute coronary syndrome. Likely secondary to oxygen supply and demand mismatch. Evaluated by cardiology. 5. Essential hypertension 6. Insulin-dependent diabetes mellitus 7. History of ischemic cardiopathy with prior AICD 8. History of CVA 9. Acute hypoxic respiratory failure: Secondary to pneumonia and CHF exacerbation 10. Hypokalemia, patient receiving potassium supplement 11. Hypernatremia: IV fluids adjusted to D5 and decreased to KVO today. Patient also receiving Lasix. Repeat labs in a.m.
--- NOTE | 2016-10-22 15:57 | P.GSCN ---
History of Present Illness Consult date: 10/22/16 Reason for Consult: Abdominal wall mass History of present illness: This 86-year-old male with multiple medical problems. The patient was admitted from the custodial. He is found have a new abdominal wall mass. The patient 's family is unable to tell how long he has had the mass. The patient is a poor historian. The patient has had multiple laparotomies. There is a soft mass in the epigastric area. The mass is nontender. Review of Systems - Constitutional Reports as per HPI Past Medical History Past Medical History: Asthma, Cancer, Heart Failure, COPD, CVA/TIA, Diabetes Mellitus, Eye Disorder, Hyperlipidemia, Hypertension, Memory Impairment, Myocardial Infarction ([place]) Additional Past Medical History / Comment(s): 06-26-16 CVA LT SIDE AFFECTED- WEARS BRIEF, INCONT OF URINE AND STOOL AT TIMES,GOUT, GLAUCOMA, 2CND TOE LEFT FOOT AMPUTATED, CARDIOMYOPATHY,HX CA, LIP SQUAMOUS CELL, SPLEEN CA, PARTIAL PANCREAS CA 3 rd toe lt foot amp, memory impairment,[place],DENTURES(NOT WITH PT) C-DIFF 08-17-15 Last Myocardial Infarction Date:: 2007 History of Any Multi-Drug Resistant Organisms: MRSA Year Discovered:: 2008 MDRO Source:: foot 2008 MRSA Past Surgical History: AICD, Appendectomy, Bladder Surgery, Bowel Resection, Cholecystectomy, Coronary Bypass/CABG, Hernia Repair, Joint Replacement, Pacemaker Additional Past Surgical History / Comment(s): SPLEEN and partial pancreas removed due to cancer, total right knee, SQUAMOUS CELL LESION REMOVED LIP, 2CND TOE LEFT TOE AMPUTATED,ANGIOGRAM 02/26/15 3rd toe lt foot amp PER PT'S DAUGHTER "HAS TOE PROTHESIS", Past Anesthesia/Blood Transfusion Reactions: No Reported Reaction Type of Cardiac Device: Permanent Pacemaker, AICD Device Placement Date:: 2009 [employer] Past Psychological History: Anxiety, Depression Additional Psychological History / Comment(s): RESIDES AT [facility], PT'S ( KARYNA) Jul. SINCE CVA IN JUN 2016- PT UNABLE TO AMBULATE, JANETTE LIFT TO W/C. NEEDS ASSIST WITH EATING(CUT FOOD SMALL PIECES), HONEY NECTAR THICK LIQUIDS, FAMILY STATES PT'S SPEECH IS STILL SOMEWHAT GARBLED. Smoking Status: Former smoker Past Alcohol Use History: None Reported Additional Past Alcohol Use History / Comment(s): SMOKED CIGAR AND PIPE, STOPPED 1984 Past Drug Use History: None Reported - Past Family History Father Family Medical History: Cancer Additional Family Medical History / Comment(s): liver cancer Mother Family Medical History: Diabetes Mellitus, Myocardial Infarction ([place]) Medications and Allergies Home Medications Medication Instructions Recorded Confirmed Type Bimatoprost [Lumigan .01% Ophth 1 drop BOTH EYES HS@209910/30/14 10/19/16 History Soln] Citalopram Hydrobromide [CeleXA] 20 mg PO HS@209910/30/14 10/19/16 History Hydrochlorothiazide [Hydrodiuril] 25 mg PO DAILY@0810/30/14 10/19/16 History Levothyroxine Sodium [Levoxyl] 125 mcg PO DAILY@0600 10/30/14 10/19/16 History Losartan Potassium [Cozaar] 100 mg PO DAILY@0800 10/30/14 10/19/16 History Metoprolol Tartrate [Lopressor] 100 mg PO BID@0800,209910/30/14 10/19/16 History Simvastatin [Zocor] 20 mg PO AC-SUPPER@169910/30/14 10/19/16 History hydrALAZINE HCL 25 mg PO BID@0800,1700 10/30/14 10/19/16 History Multivit-Min/FA/Lycopene/Lut 1 tab PO DAILY@1700 03/12/15 10/19/16 History [Centrum Silver Tablet] Albuterol Nebulized [Ventolin 2.5 mg INHALATION RT-Q6H PRN 10/05/15 10/19/16 History Nebulized] Allopurinol [Zyloprim] 300 mg PO DAILY@0800 07/06/16 10/19/16 History glipiZIDE [Glucotrol] 5 mg PO AC-TID 07/06/16 10/19/16 History Acetaminophen Tab [Tylenol Tab] 650 mg PO Q4H PRN 10/19/16 10/19/16 History Aspirin 325 mg PO DAILY@0 10/19/16 10/19/16 History Bisacodyl [Dulcolax] 10 mg RECTAL DAILY PRN 10/19/16 10/19/16 History Furosemide 40 mg IV BID@0800,209910/19/1610/19/17 History Furosemide 40 mg IV ONCE@1037 10/19/16 10/19/16 History Glucerna Shake 1 can PO TID@0800,1200,1700 10/19/16 10/19/16 History Insulin Aspart [NovoLOG] See Protocol SQ ACHS 10/19/16 10/19/16 History Insulin Detemir [Levemir] 8 unit SQ BID@0800,1700 10/19/16 10/19/16 History Ipratropium-Albuterol Nebulize 3 ml INHALATION RT-Q6H 10/19/16 10/19/16 History [Duoneb 0.5 mg-3 mg/3 ml Soln] Levofloxacin 500Mg-D5w Pmx 500 mg IVPB HS@2100 10/19/16 10/19/16 History [Levaquin 500Mg-D5w Pmx] Magnesium Hydroxide [Milk of 2,400 mg PO DAILY PRN 10/19/16 10/19/16 History Magnesia] Na Phos,M-B/Na Phos,Di-Ba [Fleet 133 ml RECTAL ONCE PRN 10/19/16 10/19/16 History Adult] Potassium Chloride ER [K-Dur 20] 20 meq PO ONCE@1300 10/19/16 10/19/16 History Potassium Chloride ER [K-Dur 20] 20 meq PO ONCE@1400 10/19/16 10/19/16 History Tiotropium 18 Mcg/Puff [Spiriva] 1 cap INHALATION RT-BID@0800,1700 10/19/16 History guaiFENesin SYRUP 100MG/5ML 200 mg PO Q4H PRN 10/19/16 10/19/16 History [Robitussin] guaiFENesin [Mucinex] 1,200 mg PO Q12H 10/19/16 10/19/16 History Allergies Allergy/AdvReac Type Severity Reaction Status Date / Time Iodinated Contrast Media - Allergy Severe Confusion Verified 10/19/16 17:44 Oral and [Iodinated Contrast Media - IV Dye] Surgical - Exam Vital Signs Temp Pulse Resp BP Pulse Ox 100.1 F H 104 H 32 H 170/109 93 L 10/19/16 17:11 10/19/16 17:11 10/19/16 17:11 10/19/16 17:11 10/19/16 17:11 - General well developed, no distress - Eyes PERRL - ENT normal pinna - Neck no masses - Abdomen Abdomen soft. There is a previous chevron and midline laparotomy scar. There is a boggy mass in the area of the rectus sheath. The mass measures approximately 15 cm in diameter. Results - Labs 10/22/16 06:12 10/22/16 06:12 Abnormal Lab Results - Last 24 Hours (Table) 10/21/16 10/21/16 10/22/16 Range/Units 16:39 20:41 06:12 RBC 3.66 L (4.30-5.90) m/uL Hgb 11.1 L (13.0-17.5) gm/dL Hct 36.3 L (39.0-53.0) % MCHC 30.6 L (31.0-37.0) g/dL RDW 16.9 H (11.5-15.5) % Sodium (137-145) mmol/L Potassium (3.5-5.1) mmol/L Carbon Dioxide (22-30) mmol/L BUN (9-20) mg/dL Glucose (74-99) mg/dL POC Glucose (mg/dL) 270 H 276 H (75-99) mg/dL Calcium (8.4-10.2) mg/dL Albumin (3.5-5.0) g/dL 10/22/16 10/22/16 10/22/16 Range/Units 06:12 06:41 11:05 RBC (4.30-5.90) m/uL Hgb (13.0-17.5) gm/dL Hct (39.0-53.0) % MCHC (31.0-37.0) g/dL RDW (11.5-15.5) % Sodium 151 H (137-145) mmol/L Potassium 3.1 L (3.5-5.1) mmol/L Carbon Dioxide 34 H (22-30) mmol/L BUN 40 H (9-20) mg/dL Glucose 223 H (74-99) mg/dL POC Glucose (mg/dL) 204 H 292 H (75-99) mg/dL Calcium 11.0 H (8.4-10.2) mg/dL Albumin 3.0 L (3.5-5.0) g/dL Diabetes panel 10/22/16 Range/Units 06:12 Sodium 151 H (137-145) mmol/L Potassium 3.1 L (3.5-5.1) mmol/L Chloride 105 (98-107) mmol/L Carbon Dioxide 34 H (22-30) mmol/L BUN 40 H (9-20) mg/dL Creatinine 1.05 (0.66-1.25) mg/dL Glucose 223 H (74-99) mg/dL Calcium 11.0 H (8.4-10.2) mg/dL AST 46 (17-59) U/L ALT 39 (21-72) U/L Alkaline Phosphatase 70 (38-126) U/L Total Protein 7.5 (6.3-8.2) g/dL Albumin 3.0 L (3.5-5.0) g/dL Calcium panel 10/22/16 Range/Units 06:12 Calcium 11.0 H (8.4-10.2) mg/dL Albumin 3.0 L (3.5-5.0) g/dL Pituitary panel 10/22/16 Range/Units 06:12 Sodium 151 H (137-145) mmol/L Potassium 3.1 L (3.5-5.1) mmol/L Chloride 105 (98-107) mmol/L Carbon Dioxide 34 H (22-30) mmol/L BUN 40 H (9-20) mg/dL Creatinine 1.05 (0.66-1.25) mg/dL Glucose 223 H (74-99) mg/dL Calcium 11.0 H (8.4-10.2) mg/dL Adrenal panel 10/22/16 Range/Units 06:12 Sodium 151 H (137-145) mmol/L Potassium 3.1 L (3.5-5.1) mmol/L Chloride 105 (98-107) mmol/L Carbon Dioxide 34 H (22-30) mmol/L BUN 40 H (9-20) mg/dL Creatinine 1.05 (0.66-1.25) mg/dL Glucose 223 H (74-99) mg/dL Calcium 11.0 H (8.4-10.2) mg/dL Total Bilirubin 0.8 (0.2-1.3) mg/dL AST 46 (17-59) U/L ALT 39 (21-72) U/L Alkaline Phosphatase 70 (38-126) U/L Total Protein 7.5 (6.3-8.2) g/dL Albumin 3.0 L (3.5-5.0) g/dL Assessment and Plan Plan: Abdominal wall mass. It is unsure whether this is a hematoma or seroma. Given the patient's poor medical condition. I would recommend observation at this time. No surgical intervention is planned.
[2016-10-22 16:36] LABS: Glucose,Whole Blood 282 mg/dL (75-99)
[2016-10-22] MEDS: LEVOFLOXACIN 750 MG TAB PO SCH (17:01)
--- NOTE | 2016-10-22 18:56 | CONS ---
DATE OF CONSULTATION: 10/22/2016 REASON FOR CONSULTATION: 1. Pneumonia. 2. Abnormal CT of abdomen with question of hematoma versus abscess. HISTORY OF PRESENT ILLNESS: The patient is an 86-year-old male who was brought into the ER at [facility] on 10/19/2016 with the chief complaint of difficulty in breathing. Apparently his symptoms had been going on for about 3 days prior to presentation to hospital. Patient also has a nonproductive cough and no clear history of any fever; however, he did have a low-grade fever of 100.1 in the ER and did have elevated white count of 13,000. The patient seems to have been observed having coughing after the patient was being fed water by one of the family members, with concern for underlying aspiration pneumonia. Initial x-ray showed probably mild heart failure with pulmonary vascularity similar to last exam. The patient did have a video fluoroscopic swallow which showed penetration with thin barium. The patient was also noticed to have a mass on the abdominal wall, for which ultrasound was done followed by a CT. I did review the CT with the radiologist, Dr. Singh, and it shows evidence of rectus sheath hematoma in addition to the right lower lobe pneumonia. Patient is not a very good historian. He does complain of feeling weak and tired. He did have a cough but not bringing up any sputum, though. Denies any chest pain , not specifically for abdominal pain. He did mention the middle part of his abdomen feels tight, but he is not complaining of significant abdominal pain or any history of fall or trauma to the area. No constipation or any diarrhea. However, overall the patient is not a very good historian, so most of the information has been obtained from thorough review of the chart. Review of systems could not be reliably obtained, but the positives have been mentioned in the HPI. Past medical history is significant for: 1. Heart failure. 2. COPD. 3. CVA. 4. TIA. 5. Diabetes mellitus. 6. Hyperlipidemia. 7. Hypertension. 8. Memory impairment. 9. History of cancer. 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 PAST SURGICAL HISTORY: 1. Appendectomy. 2. AICD placement. 3. Bowel resection. 4. Cholecystectomy. 5. Coronary artery bypass grafting. 6. Pacemaker placement. 7. Bowel resection. SOCIAL HISTORY: Remote history of smoking; quit back in 1984. No drinking or any drug use. FAMILY HISTORY: Father with history of liver cancer. Mother with history of diabetes and CA. ALLERGIES: IODINATED CONTRAST DYE. Medications currently include: 1. DuoNeb. 2. Aspirin. 3. Lipitor. 4. Dextrose. 5. Lasix. 6. Levemir. 7. Humalog sliding scale. 8. Levofloxacin. 9. Synthroid. 10. Cozaar. 11. Milk of Magnesia. 12. Lopressor. 13. Zofran. 14. Piperacillin tazobactam. 15. Aldactone. On examination, his blood pressure is 179/97 with a pulse of 78, temperature 97.9. He is 98% on 6 L nasal cannula. General description is an elderly male lying in bed in no distress. No tachypnea or accessory muscle of respiration use. HEENT examination shows slight pallor. No scleral icterus. Oral mucous membrane dry. NECK: Trachea is central. No thyromegaly. LUNGS: Unlabored breathing. Coarse breath sounds in the bases bilaterally. HEART: S1, S2. Regular rate and rhythm. ABDOMEN: Soft. No tenderness. EXTREMITIES: No edema of the feet. SKIN EXAMINATION: No rash or mass palpable. NEUROLOGICAL: Patient is awake, alert, oriented x2. Mood and affect normal. LABS: Hemoglobin is 11.1, white count normalized to 9. Admission white count was 13 with a BUN of 40, creatinine 1.05. Liver enzymes have been normal. Potassium was low. Blood culture was obtained and currently pending. Urine is negative. No sputum has been collected. DIAGNOSTIC IMPRESSION AND PLAN: 1. Patient admitted to hospital with difficulty breathing. He did have a cough with evidence of choking on water and evidence of barely penetration on the video swallow, likely representing an episode of right lower lobe aspiration pneumonia. 2. Patient with a mass seen on the abdominal wall, likely a rectus sheath hematoma; clinical suspicion for an abscess on the low side. PLAN: 1. We will try to obtain sputum for Gram stain and culture and sensitivity. 2. Continue patient on Zosyn and Levaquin, which should provide adequate coverage for underlying aspiration pneumonia. 3. No need for further workup for his abdominal wall hematoma, though may benefit from a repeat CT in about a month's time as an outpatient to make sure the hematoma is slowly decreasing. However, if the patient is noted to have any drop in the hemoglobin during this admission, we may have to do further workup to make sure there is no continuous bleeding into that hematoma. 4. Will follow up on the clinical condition and cultures to further adjust medication if needed. Thank you for this consultation. Will follow this patient along with you. JUAN
[2016-10-22] MEDS: ATORVASTATIN 20 MG TAB PO SCH (20:16)
[2016-10-22 21:04] LABS: Glucose,Whole Blood 308 mg/dL (75-99)
[2016-10-22] MEDS: POTASSIUM CHLORIDE 10 MEQ in WATER FOR INJECTION 1 100ML.BAG IVPB SCH ×2 (22:17→23:48)
[2016-10-23] MEDS: POTASSIUM CHLORIDE 10 MEQ in WATER FOR INJECTION 1 100ML.BAG IVPB SCH ×5 (02:05→12:00)
[2016-10-23 03:22] LABS: Anisocytosis Slight; Basophils # (A) 0.1 k/uL (0-0.2); Basophils % (A) 1 %; CH 30.8; CHCM 31.2; Eosinophils % (A) 0 %; HCT 38.3 % (39.0-53.0); HDW 2.87; HGB 11.4 gm/dL (13.0-17.5); Hypochromasia Slight; Luc # (Auto) 0.34; Luc % (Auto) 4; Lymphocytes # (A) 2.4 k/uL (1.0-4.8); Lymphocytes % (A) 25 %; MCH 29.7 pg (25.0-35.0); MCHC 29.9 g/dL (31.0-37.0); MCV 99.4 fL (80.0-100.0); Macrocytosis Slight; Mean Platelet Volume 10.4; Monocytes # (A) 0.5 k/uL (0-1.0); Monocytes % (A) 5 %; Neutrophils # (A) 6.3 k/uL (1.3-7.7); Neutrophils % (A) 66 %; RBC 3.86 m/uL (4.30-5.90); RDW 16.8 % (11.5-15.5); WBC 9.6 k/uL (3.8-10.6); WBC (Perox) 9.72
[2016-10-23 03:29] LABS: ALT 49 U/L (21-72); AST 40 U/L (17-59); Alkaline Phosphatase 80 U/L (38-126); Anion Gap 12 mmol/L; Blood Urea Nitrogen 38 mg/dL (9-20); Carbon Dioxide 38 mmol/L (22-30); Chloride 103 mmol/L (98-107); Glucose 214 mg/dL (74-99); Non-African American GFR(MDRD) >60 (>60 ml/min/1.73 sqM); Potassium 3.3 mmol/L (3.5-5.1); Sodium 153 mmol/L (137-145); Total Bilirubin 0.6 mg/dL (0.2-1.3); Total Protein 7.4 g/dL (6.3-8.2)
[2016-10-23] MEDS ORDERED: Potassium Replacement Protocol 1 EACH MISC MISCELLANE PRN (04:03)
[2016-10-23 05:57] LABS: Glucose,Whole Blood 190 mg/dL (75-99)
[2016-10-23] MEDS: LEVOTHYROXINE 125 MCG TAB PO SCH (06:34)
[2016-10-23] MEDS: INSULIN LISPRO (humaLOG) 300 UNIT/3 ML VIAL SQ SCH ×4 (06:35→21:48)
[2016-10-23] MEDS: IPRATROPIUM-ALBUTEROL 3 ML NEB INHALATION SCH ×4 (08:05→20:41)
[2016-10-23] MEDS: ASPIRIN 81 MG CHEW PO SCH (09:03)
[2016-10-23] MEDS: LOSARTAN 50 MG TAB PO SCH (09:03)
[2016-10-23] MEDS: SPIRONOLACTONE 25 MG TAB PO SCH (09:03)
[2016-10-23] MEDS: PIPERACILLIN-TAZOBACTAM 3.375 GM in DEXTROSE/WATER 1 50ML.BAG IVPB SCH ×2 (09:04→16:58)
[2016-10-23] MEDS: FUROSEMIDE 10 MG/ML 4 ML VIAL IV SCH (09:04)
[2016-10-23] MEDS: METOPROLOL TARTRATE 50 MG TAB PO SCH ×2 (09:05→20:14)
[2016-10-23] MEDS: INSULIN DETEMIR 100 UNIT/ML 10 ML VIAL SQ SCH ×2 (09:06→16:57)
--- NOTE | 2016-10-23 10:53 | P.PN ---
Progress Note - Text The patient remains unchanged. He has no new complaints. On exam his vital signs are stable. His abdomen soft. The epigastric mass is unchanged. Probable intramuscular hematoma. Patient will be observed. No surgical intervention is planned.
--- NOTE | 2016-10-23 11:31 | P.PN ---
Subjective Principal diagnosis: Acute aspiration pneumonia and congestive heart failure History of present illness: This is an 86-year-old white male with history of coronary artery disease, prior bypass surgery over 15 years ago, history of ischemic cardiomyopathy, previous AICD implantation, history of hypertension diabetes hyperlipidemia CVA , patient is mostly bedridden, has not been ambulatory for quite some time. Patient is staying at a halfway. Patient has been noted to have productive cough, shortness of breath, and progressive weakness. He was brought into the ER, and he was noted to have some mild congestive changes noted on the chest x-ray. He had slight leukocytosis with WBC count of 15.4, his BNP level was elevated. And his troponins were also noted to be elevated. Upon further questioning and upon evaluation at bedside, I strongly felt that the patient is having intermittent episodes of aspiration. As he was getting sips of water by his daughter, patient was having significant cough and barky type of cough, felt to be exacerbated by swallowing water. Hence I recommended a swallow evaluation on this patient. In the meantime he is being followed by cardiology for his mild congestive heart failure I strongly believe that the patient is aspirating. The patient himself is a very poor historian, information about the patient was obtained from his daughter at bedside. Patient was reevaluated today on 10/21/2016. When I saw him yesterday, I felt a large mass in the right upper quadrant area of the abdomen. And I recommended ultrasound of the abdomen which she'll remain off showed a large mass, and that needs to be further investigated. CT of the abdomen and pelvis was ordered today, and the patient may eventually need a CT-guided needle biopsy. He is known to have history of pancreatic cancer and he had a previous surgery I expect it was a Whipple's surgery. At any rate patient failed his a swallow evaluation, and that goes to point more and more to the possibility of aspiration pneumonia on presentation. Patient is refusing a PEG tube placement. Today I had a long discussion with his daughter at bedside, and obviously there are some any issues to be addressed on this patient not to mention this mass in the abdomen which is most likely malignant unless proven otherwise. Labs were reviewed and his sodium seems to be coming up, potassium is low that is to be addressed. I changes main IV fluid to D5W and we will run it at 50 mL per hour considering his LV dysfunction. The patient is seen again today 10/22/2016 in follow-up on the selective care unit. He is currently awake and alert in no acute distress. He is still requiring 6 L/m per nasal cannula to maintain O2 saturations in the 90s. He is currently afebrile. He denies any significant abdominal discomfort. The computed tomography scan of the abdomen and pelvis did reveal a 10 x 13 x 19 cm subcutaneous anterior abdominal wall mass, hematoma or complicated seroma. There continues to be evidence of the right lower lobe pneumonia. There is also a rounded soft tissue mass in the left upper quadrant with absence of the spleen suspect residual splenule versus underlying mass or adenopathy. His sodium continues to climb currently at 151, potassium 3.1. His white count has recovered currently 9.0. Patient was reevaluated today on 10/23/2016, he is basically about the same, remains on O2, remains on antibiotics for presumptive aspiration pneumonia, and his abdominal mass was evaluated by the surgeon, but considering the patient is a poor candidate for any intervention, it was felt that it is best to leave it alone. CBC was reviewed. Electrolytes were reviewed however his sodium seems to be climbing up significantly, and I believe the patient would benefit from changing IV fluid to D5W and possibly cut down on diuretics. We'll go ahead and discontinue Aldactone and Lasix for now, change IV fluid to D5W at 70 mL per hour. Objective - Vital Signs Vital signs: Vital Signs Temp 97.3 F L 10/23/16 04:00 Pulse 92 10/23/16 08:17 Resp 18 10/23/16 04:00 BP 160/92 10/23/16 04:00 Pulse Ox 98 10/23/16 04:00 Intake & Output 10/22/16 10/23/16 10/23/16 18:59 06:59 18:59 Intake Total 218 590 Output Total 950 Balance 218 -360 Weight 81 kg Intake: IV 50 Piperacillin-Tazobactam 3 50 .375 gm In Dextrose/Water 1 50ml.bag @ 12.5 mls/hr IVPB Q8HR [facility] Rx#: [id number] Intake, IV Titration 200 Amount Potassium Chloride 10 meq 200 In Water For Injection 1 100ml.bag @ 100 mls/hr IVPB Q1H [facility] Rx#: [id number] Oral 218 340 Output: Urine 950 Other: Voiding Method Indwelling Catheter Indwelling Catheter # Voids 2 # Bowel Movements 1 - Exam GENERAL EXAM: Alert, comfortable in no acute distress. HEAD: Normocephalic. EYES: Normal reaction of pupils, equal size. NOSE: Clear with pink turbinates. THROAT: No erythema or exudates. NECK: No masses, no JVD. CHEST: No chest wall deformity. LUNGS: Equal air entry with crackles in the right posterior base. CVS: S1 and S2 normal with a systolic murmur, regular rhythm. ABDOMEN: Palpable mass in the right upper quadrant. Extremities: There is trace peripheral edema. No clubbing, no cyanosis. Peripheral pulses are intact. - Labs CBC & Chem 7: 10/23/16 03:07 10/23/16 07:34 Labs: Abnormal Lab Results - Last 24 Hours (Table) 10/22/16 10/22/16 10/22/16 Range/Units 16:34 19:56 21:00 RBC (4.30-5.90) m/uL Hgb (13.0-17.5) gm/dL Hct (39.0-53.0) % MCHC (31.0-37.0) g/dL RDW (11.5-15.5) % Sodium (137-145) mmol/L Potassium 2.8 L* (3.5-5.1) mmol/L Carbon Dioxide (22-30) mmol/L BUN (9-20) mg/dL Glucose (74-99) mg/dL POC Glucose (mg/dL) 282 H 308 H (75-99) mg/dL Calcium (8.4-10.2) mg/dL Albumin (3.5-5.0) g/dL 10/23/16 10/23/16 10/23/16 Range/Units 03:07 03:07 05:55 RBC 3.86 L (4.30-5.90) m/uL Hgb 11.4 L (13.0-17.5) gm/dL Hct 38.3 L (39.0-53.0) % MCHC 29.9 L (31.0-37.0) g/dL RDW 16.8 H (11.5-15.5) % Sodium 153 H (137-145) mmol/L Potassium 3.3 L (3.5-5.1) mmol/L Carbon Dioxide 38 H (22-30) mmol/L BUN 38 H (9-20) mg/dL Glucose 214 H (74-99) mg/dL POC Glucose (mg/dL) 190 H (75-99) mg/dL Calcium 11.0 H (8.4-10.2) mg/dL Albumin 3.0 L (3.5-5.0) g/dL Assessment and Plan Plan: 1 strongly suspect aspiration pneumonia. Patient is on proper antibiotics, he failed his swallow evaluation, and his refusing PEG tube placement. 2 suspect cardiomyopathy and mild component of heart failure mostly systolic in nature knowing that the patient's EF is 30 to 35 percent at best. 3 abdominal mass, most likely malignant unless proven otherwise, patient may eventually need CT-guided needle biopsy. Patient is known to have history of pancreatic cancer and previous surgery. 4 worsening hypernatremia secondary to dehydration and patient would likely benefit from free water and change IV fluid to D5W, holding diuretics for the time being. Monitor his electrolytes closely. And monitor chest x-ray, have a follow-up chest x-ray on Tuesday.. 5 multiple comorbidities including coronary artery disease and previous CABG in 2007. History of diabetes. History of hyperlipidemia. History of AICD placement for ischemic cardiomyopathy. History of previous CVA. History of peripheral vessel occlusive disease. Time with Patient: Less than 30
[2016-10-23 12:02] LABS: Glucose,Whole Blood 327 mg/dL (75-99)
--- NOTE | 2016-10-23 12:47 | P.PN ---
Subjective No events overnight. Patient is comfortable. Objective - Vital Signs Vital signs: Vital Signs Temp 97.0 F L 10/23/16 12:00 Pulse 85 10/23/16 12:00 Resp 18 10/23/16 12:00 BP 166/93 10/23/16 12:00 Pulse Ox 94 L 10/23/16 12:00 Intake & Output 10/22/16 10/23/16 10/23/16 18:59 06:59 18:59 Intake Total 218 590 Output Total 950 Balance 218 -360 Weight 81 kg Intake: IV 50 Piperacillin-Tazobactam 3 50 .375 gm In Dextrose/Water 1 50ml.bag @ 12.5 mls/hr IVPB Q8HR [facility] Rx#: [id number] Intake, IV Titration 200 Amount Potassium Chloride 10 meq 200 In Water For Injection 1 100ml.bag @ 100 mls/hr IVPB Q1H [facility] Rx#: [id number] Oral 218 340 Output: Urine 950 Other: Voiding Method Indwelling Catheter Indwelling Catheter Indwelling Catheter # Voids 2 # Bowel Movements 1 - Exam General: The patient is awake and alert, in no distress Eye: there is normal conjunctiva bilaterally. Neck: The neck is supple, there is no JVD. Cardiovascular: Normal S1-S2, no S3-S4, no murmurs. Respiratory: Lungs with diffuse rhonchi Gastrointestinal: Abdomen is soft, there is a palpable mass in the right upper quadrant Musculoskeletal: There is +1 pedal edema. Skin: Skin is warm and dry - Labs CBC & Chem 7: 10/23/16 03:07 10/23/16 07:34 Labs: Abnormal Lab Results - Last 24 Hours (Table) 10/22/16 10/22/16 10/22/16 Range/Units 16:34 19:56 21:00 RBC (4.30-5.90) m/uL Hgb (13.0-17.5) gm/dL Hct (39.0-53.0) % MCHC (31.0-37.0) g/dL RDW (11.5-15.5) % Sodium (137-145) mmol/L Potassium 2.8 L* (3.5-5.1) mmol/L Carbon Dioxide (22-30) mmol/L BUN (9-20) mg/dL Glucose (74-99) mg/dL POC Glucose (mg/dL) 282 H 308 H (75-99) mg/dL Calcium (8.4-10.2) mg/dL Albumin (3.5-5.0) g/dL 10/23/16 10/23/16 10/23/16 Range/Units 03:07 03:07 05:55 RBC 3.86 L (4.30-5.90) m/uL Hgb 11.4 L (13.0-17.5) gm/dL Hct 38.3 L (39.0-53.0) % MCHC 29.9 L (31.0-37.0) g/dL RDW 16.8 H (11.5-15.5) % Sodium 153 H (137-145) mmol/L Potassium 3.3 L (3.5-5.1) mmol/L Carbon Dioxide 38 H (22-30) mmol/L BUN 38 H (9-20) mg/dL Glucose 214 H (74-99) mg/dL POC Glucose (mg/dL) 190 H (75-99) mg/dL Calcium 11.0 H (8.4-10.2) mg/dL Albumin 3.0 L (3.5-5.0) g/dL 10/23/16 Range/Units 11:52 RBC (4.30-5.90) m/uL Hgb (13.0-17.5) gm/dL Hct (39.0-53.0) % MCHC (31.0-37.0) g/dL RDW (11.5-15.5) % Sodium (137-145) mmol/L Potassium (3.5-5.1) mmol/L Carbon Dioxide (22-30) mmol/L BUN (9-20) mg/dL Glucose (74-99) mg/dL POC Glucose (mg/dL) 327 H (75-99) mg/dL Calcium (8.4-10.2) mg/dL Albumin (3.5-5.0) g/dL Assessment and Plan Plan: 1. Aspiration pneumonia. Continue with antibiotics. Pulmonary service following. Patient failed his swallow evaluation. He is refusing a PEG tube placement. 2. Acute systolic CHF exacerbation. EF of 30-35%. Followed by cardiology. 3. Abdominal mass noted on abdominal ultrasound. Computed tomography scan of the abdomen showing a 10 x 13 x 19 cm subcutaneous anterior abdominal wall most likely represent a hematoma. Seen and evaluated by surgery. No intervention recommended. 4. Abnormal troponins, not consistent with acute coronary syndrome. Likely secondary to oxygen supply and demand mismatch. Evaluated by cardiology. 5. Essential hypertension 6. Insulin-dependent diabetes mellitus 7. History of ischemic cardiopathy with prior AICD 8. History of CVA 9. Acute hypoxic respiratory failure: Secondary to pneumonia and CHF exacerbation Continue current regimen otherwise. Repeat chest x-ray. Repeat lab work in the morning. Family updated.
--- NOTE | 2016-10-23 13:10 | P.PN ---
Subjective Principal diagnosis: Congestive heart failure This is an 86-year-old gentleman with known history of coronary artery disease, prior bypass surgery, ischemic cardiomyopathy with prior AICD implantation, hypertension, diabetes, hyperlipidemia, PAD, prior CVA, who presented to the hospital mainly with complaints of a persistent productive cough, shortness of breath, and progressive weakness. Chest x-ray on admission revealed mild congestive heart failure. Patient was initiated on IV Lasix, he' s having excellent urine output. Creatinine today 1.10, potassium 3.3, replaced. Sodium 153. Lasix was discontinued by pulmonary, patient was initiated on D5W at 70 an hour. Overall patient appears better. Objective - Vital Signs Vital signs: Vital Signs Temp 97.0 F L 10/23/16 12:00 Pulse 85 10/23/16 12:00 Resp 18 10/23/16 12:00 BP 166/93 10/23/16 12:00 Pulse Ox 94 L 10/23/16 12:00 Intake & Output 10/22/16 10/23/16 10/23/16 18:59 06:59 18:59 Intake Total 218 590 200 Output Total 950 Balance 218 -360 200 Weight 81 kg Intake: IV 50 Piperacillin-Tazobactam 3 50 .375 gm In Dextrose/Water 1 50ml.bag @ 12.5 mls/hr IVPB Q8HR [facility] Rx#: [id number] Intake, IV Titration 200 Amount Potassium Chloride 10 meq 200 In Water For Injection 1 100ml.bag @ 100 mls/hr IVPB Q1H [facility] Rx#: [id number] Oral 218 340 200 Output: Urine 950 Other: Voiding Method Indwelling Catheter Indwelling Catheter Indwelling Catheter # Voids 2 # Bowel Movements 1 - Exam PHYSICAL EXAMINATION: HEENT: Head is atraumatic, normocephalic. Pupils equal, round. Neck is supple. There is no elevated jugular venous pressure. HEART EXAMINATION: S1 and S2 systolic murmur is heard. CHEST EXAMINATION: Lungs reveal scattered coarse rhonchi and wheezes throughout. ABDOMEN: Soft, nontender. Bowel sounds are heard. No organomegaly noted. EXTREMITIES: 1 + peripheral pulses with trace evidence of peripheral edema and no calf tenderness noted. NEUROLOGIC patient is awake, sleepy ,oriented -2. - Labs CBC & Chem 7: 10/23/16 03:07 10/23/16 07:34 Labs: Abnormal Lab Results - Last 24 Hours (Table) 10/22/16 10/22/16 10/22/16 Range/Units 16:34 19:56 21:00 RBC (4.30-5.90) m/uL Hgb (13.0-17.5) gm/dL Hct (39.0-53.0) % MCHC (31.0-37.0) g/dL RDW (11.5-15.5) % Sodium (137-145) mmol/L Potassium 2.8 L* (3.5-5.1) mmol/L Carbon Dioxide (22-30) mmol/L BUN (9-20) mg/dL Glucose (74-99) mg/dL POC Glucose (mg/dL) 282 H 308 H (75-99) mg/dL Calcium (8.4-10.2) mg/dL Albumin (3.5-5.0) g/dL 10/23/16 10/23/16 10/23/16 Range/Units 03:07 03:07 05:55 RBC 3.86 L (4.30-5.90) m/uL Hgb 11.4 L (13.0-17.5) gm/dL Hct 38.3 L (39.0-53.0) % MCHC 29.9 L (31.0-37.0) g/dL RDW 16.8 H (11.5-15.5) % Sodium 153 H (137-145) mmol/L Potassium 3.3 L (3.5-5.1) mmol/L Carbon Dioxide 38 H (22-30) mmol/L BUN 38 H (9-20) mg/dL Glucose 214 H (74-99) mg/dL POC Glucose (mg/dL) 190 H (75-99) mg/dL Calcium 11.0 H (8.4-10.2) mg/dL Albumin 3.0 L (3.5-5.0) g/dL 10/23/16 Range/Units 11:52 RBC (4.30-5.90) m/uL Hgb (13.0-17.5) gm/dL Hct (39.0-53.0) % MCHC (31.0-37.0) g/dL RDW (11.5-15.5) % Sodium (137-145) mmol/L Potassium (3.5-5.1) mmol/L Carbon Dioxide (22-30) mmol/L BUN (9-20) mg/dL Glucose (74-99) mg/dL POC Glucose (mg/dL) 327 H (75-99) mg/dL Calcium (8.4-10.2) mg/dL Albumin (3.5-5.0) g/dL Assessment and Plan Plan: Assessment and plan #1 symptoms of productive cough with associated shortness of breath, likely a combination of acute tracheobronchitis and mild congestive heart failure, systolic in nature acute on chronic. Most recent echocardiogram with Doppler study was performed in June of last year which revealed an ejection fraction of 30-35%. #2 known history of coronary artery disease with prior bypass surgery in 2007 #3 diabetes #4 hypertension # 5 ischemic cardiomyopathy with prior AICD #6 hyperlipidemia #7 prior CVA #8 PAD #9 abnormal troponins, not consistent with acute coronary syndrome, likely secondary to oxygen supply and demand mismatch, patient denies having any chest pain. Most recent dobutamine echocardiographic study was performed in 2014. Plan From cardiology's perspective, we will add recommended to continue the patient on his current medications. Check lytes BUN and creatinine in the morning. DNP note has been reviewed, I agree with a documented findings and plan of care. Patient was seen and examined.
[2016-10-23] MEDS: LEVOFLOXACIN 750 MG TAB PO SCH (16:59)
[2016-10-23 17:27] LABS: Glucose,Whole Blood 270 mg/dL (75-99)
[2016-10-23] MEDS: POTASSIUM CHLORIDE 10 MEQ, LIDOCAINE 2% INJ 10 MG in SODIUM CHLORIDE 0.9% 100 ML IV SCH ×2 (18:47→20:08)
[2016-10-23] MEDS: ATORVASTATIN 20 MG TAB PO SCH (20:14)
[2016-10-23 20:52] LABS: Glucose,Whole Blood 257 mg/dL (75-99)
[2016-10-24] MEDS ORDERED: Potassium Replacement Protocol 1 EACH MISC MISCELLANE PRN (02:41)
[2016-10-24] MEDS: POTASSIUM CHLORIDE 10 MEQ in WATER FOR INJECTION 1 100ML.BAG IVPB SCH ×2 (03:38→04:44)
[2016-10-24] MEDS: PIPERACILLIN-TAZOBACTAM 3.375 GM in DEXTROSE/WATER 1 50ML.BAG IVPB SCH ×4 (03:43→23:29)
[2016-10-24] MEDS: LEVOTHYROXINE 125 MCG TAB PO SCH (06:34)
[2016-10-24] MEDS: INSULIN LISPRO (humaLOG) 300 UNIT/3 ML VIAL SQ SCH ×4 (06:35→22:00)
[2016-10-24 06:36] LABS: Glucose,Whole Blood 245 mg/dL (75-99)
[2016-10-24 07:05] LABS: Anisocytosis Slight; Basophils # (A) 0.1 k/uL (0-0.2); Basophils % (A) 1 %; CH 30.6; CHCM 30.8; Eosinophils # (A) 0.1 k/uL (0-0.7); Eosinophils % (A) 1 %; HCT 38.9 % (39.0-53.0); HDW 2.88; HGB 11.9 gm/dL (13.0-17.5); Hypochromasia Moderate; Luc # (Auto) 0.26; Luc % (Auto) 3; Lymphocytes # (A) 2.5 k/uL (1.0-4.8); Lymphocytes % (A) 23 %; MCH 30.5 pg (25.0-35.0); MCHC 30.6 g/dL (31.0-37.0); MCV 99.8 fL (80.0-100.0); Macrocytosis Slight; Mean Platelet Volume 10.3; Monocytes # (A) 0.4 k/uL (0-1.0); Monocytes % (A) 4 %; Neutrophils # (A) 7.3 k/uL (1.3-7.7); Neutrophils % (A) 69 %; RDW 16.9 % (11.5-15.5); WBC 10.5 k/uL (3.8-10.6); WBC (Perox) 11.21
[2016-10-24 07:21] LABS: ALT 42 U/L (21-72); AST 39 U/L (17-59); Alkaline Phosphatase 72 U/L (38-126); Anion Gap 9 mmol/L; Blood Urea Nitrogen 37 mg/dL (9-20); Calcium 10.7 mg/dL (8.4-10.2); Carbon Dioxide 35 mmol/L (22-30); Chloride 105 mmol/L (98-107); Glucose 259 mg/dL (74-99); Non-African American GFR(MDRD) 58 (>60 ml/min/1.73 sqM); Sodium 149 mmol/L (137-145); Total Protein 7.5 g/dL (6.3-8.2)
[2016-10-24 07:25] LABS: Potassium 4.3 mmol/L (3.5-5.1)
--- NOTE | 2016-10-24 08:10 | PN ---
DATE OF SERVICE: 10/23/2016 Reason for follow-up: 1. Right lower lobe aspiration pneumonia. 2. abdominal wall hematoma. INTERVAL HISTORY: The patient is afebrile. He continues to feeling weak and tired and did have a cough but not bringing up any sputum. Denies any chest pain. No significant abdominal pain. No nausea or vomiting or any diarrhea. On examination, blood pressure is 123/90 with a pulse of 98, temperature 97.5. He is 91% on 4 liters nasal cannula. General description is an elderly male, lying in bed in no distress. RESPIRATORY SYSTEM: Unlabored breathing. Coarse breath sounds at the bases. No wheeze. HEART: S1, S2. Regular rate and rhythm. Abdomen: Soft, no tenderness. LABS: Hemoglobin 11.1, white count 9.6, BUN of 38, creatinine 1.10. Diagnostic impression and plan: 1. Patient with right lower lobe pneumonia likely aspiration etiology, currently responding to the Zosyn and Levaquin that will be continued. We will try to obtain sputum. 2. Rectus sheath Hematoma the patient seems to be asymptomatic. No need for further work-up for the same. [facility]
[2016-10-24] MEDS: IPRATROPIUM-ALBUTEROL 3 ML NEB INHALATION SCH ×4 (08:16→20:46)
[2016-10-24] MEDS: ASPIRIN 81 MG CHEW PO SCH (08:46)
[2016-10-24] MEDS: METOPROLOL TARTRATE 50 MG TAB PO SCH ×2 (08:46→20:06)
[2016-10-24] MEDS: LOSARTAN 50 MG TAB PO SCH (08:46)
[2016-10-24] MEDS: INSULIN DETEMIR 100 UNIT/ML 10 ML VIAL SQ SCH ×2 (08:48→16:45)
[2016-10-24 12:03] LABS: Glucose,Whole Blood 342 mg/dL (75-99)
--- NOTE | 2016-10-24 12:36 | P.PN ---
Subjective Principal diagnosis: Acute aspiration pneumonia and congestive heart failure History of present illness: This is an 86-year-old white male with history of coronary artery disease, prior bypass surgery over 15 years ago, history of ischemic cardiomyopathy, previous AICD implantation, history of hypertension diabetes hyperlipidemia CVA , patient is mostly bedridden, has not been ambulatory for quite some time. Patient is staying at a [facility]. Patient has been noted to have productive cough, shortness of breath, and progressive weakness. He was brought into the ER, and he was noted to have some mild congestive changes noted on the chest x-ray. He had slight leukocytosis with WBC count of 15.4, his BNP level was elevated. And his troponins were also noted to be elevated. Upon further questioning and upon evaluation at bedside, I strongly felt that the patient is having intermittent episodes of aspiration. As he was getting sips of water by his daughter, patient was having significant cough and barky type of cough, felt to be exacerbated by swallowing water. Hence I recommended a swallow evaluation on this patient. In the meantime he is being followed by cardiology for his mild congestive heart failure I strongly believe that the patient is aspirating. The patient himself is a very poor historian, information about the patient was obtained from his daughter at bedside. Patient was reevaluated today on 10/21/2016. When I saw him yesterday, I felt a large mass in the right upper quadrant area of the abdomen. And I recommended ultrasound of the abdomen which she'll remain off showed a large mass, and that needs to be further investigated. CT of the abdomen and pelvis was ordered today, and the patient may eventually need a CT-guided needle biopsy. He is known to have history of pancreatic cancer and he had a previous surgery I expect it was a Whipple's surgery. At any rate patient failed his a swallow evaluation, and that goes to point more and more to the possibility of aspiration pneumonia on presentation. Patient is refusing a PEG tube placement. Today I had a long discussion with his daughter at bedside, and obviously there are some any issues to be addressed on this patient not to mention this mass in the abdomen which is most likely malignant unless proven otherwise. Labs were reviewed and his sodium seems to be coming up, potassium is low that is to be addressed. I changes main IV fluid to D5W and we will run it at 50 mL per hour considering his LV dysfunction. The patient is seen again today 10/22/2016 in follow-up on the selective care unit. He is currently awake and alert in no acute distress. He is still requiring 6 L/m per nasal cannula to maintain O2 saturations in the 90s. He is currently afebrile. He denies any significant abdominal discomfort. The computed tomography scan of the abdomen and pelvis did reveal a 10 x 13 x 19 cm subcutaneous anterior abdominal wall mass, hematoma or complicated seroma. There continues to be evidence of the right lower lobe pneumonia. There is also a rounded soft tissue mass in the left upper quadrant with absence of the spleen suspect residual splenule versus underlying mass or adenopathy. His sodium continues to climb currently at 151, potassium 3.1. His white count has recovered currently 9.0. Patient was reevaluated today on 10/23/2016, he is basically about the same, remains on O2, remains on antibiotics for presumptive aspiration pneumonia, and his abdominal mass was evaluated by the surgeon, but considering the patient is a poor candidate for any intervention, it was felt that it is best to leave it alone. CBC was reviewed. Electrolytes were reviewed however his sodium seems to be climbing up significantly, and I believe the patient would benefit from changing IV fluid to D5W and possibly cut down on diuretics. We'll go ahead and discontinue Aldactone and Lasix for now, change IV fluid to D5W at 70 mL per hour. Patient was reevaluated today on 10/24/2016, seems to be a bit more congested today. Hence I will recommend cutting down the IV fluids to KVO, and a chest x- ray will be done in a.m. If the patient shows evidence of congestive heart failure, diuretics may have to be restarted cautiously. In the meantime continue antibiotics for aspiration pneumonia. I believe the patient is continuously aspirating, and clearly he expressed wishes not to have a PEG tube placement. His sodium is a bit better today 149, BUN is 37 creatinine is 1.20. Patient is noted to have intermittent cough and rhonchi on physical examination. Objective - Vital Signs Vital signs: Vital Signs Temp 97.4 F L 10/24/16 08:00 Pulse 94 10/24/16 11:56 Resp 18 10/24/16 08:00 BP 123/75 10/24/16 08:00 Pulse Ox 97 10/24/16 08:00 Intake & Output 10/23/16 10/24/16 10/24/16 18:59 06:59 18:59 Intake Total 200 Output Total 700 1100 Balance -500 -1100 Weight 81.5 kg Intake: Oral 200 Output: Urine 700 1100 Other: Voiding Method Indwelling Catheter Indwelling Catheter Indwelling Catheter # Voids 0 - Exam GENERAL EXAM: Alert, comfortable in no acute distress. HEAD: Normocephalic. EYES: Normal reaction of pupils, equal size. NOSE: Clear with pink turbinates. THROAT: No erythema or exudates. NECK: No masses, no JVD. CHEST: No chest wall deformity. LUNGS: Equal air entry with crackles in the right posterior base. CVS: S1 and S2 normal with a systolic murmur, regular rhythm. ABDOMEN: Palpable mass in the right upper quadrant. Extremities: There is trace peripheral edema. No clubbing, no cyanosis. Peripheral pulses are intact. - Labs CBC & Chem 7: 10/24/16 06:55 10/24/16 06:49 Labs: Abnormal Lab Results - Last 24 Hours (Table) 10/23/16 10/23/16 10/24/16 Range/Units 17:00 20:37 06:29 RBC (4.30-5.90) m/uL Hgb (13.0-17.5) gm/dL Hct (39.0-53.0) % MCHC (31.0-37.0) g/dL RDW (11.5-15.5) % Sodium (137-145) mmol/L Carbon Dioxide (22-30) mmol/L BUN (9-20) mg/dL Glucose (74-99) mg/dL POC Glucose (mg/dL) 270 H 257 H 245 H (75-99) mg/dL Calcium (8.4-10.2) mg/dL Albumin (3.5-5.0) g/dL 10/24/16 10/24/16 10/24/16 Range/Units 06:49 06:55 11:59 RBC 3.90 L (4.30-5.90) m/uL Hgb 11.9 L (13.0-17.5) gm/dL Hct 38.9 L (39.0-53.0) % MCHC 30.6 L (31.0-37.0) g/dL RDW 16.9 H (11.5-15.5) % Sodium 149 H (137-145) mmol/L Carbon Dioxide 35 H (22-30) mmol/L BUN 37 H (9-20) mg/dL Glucose 259 H (74-99) mg/dL POC Glucose (mg/dL) 342 H (75-99) mg/dL Calcium 10.7 H (8.4-10.2) mg/dL Albumin 3.0 L (3.5-5.0) g/dL Assessment and Plan Plan: 1 strongly suspect aspiration pneumonia. Patient is on proper antibiotics, he failed his swallow evaluation, and his refusing PEG tube placement. 2 suspect cardiomyopathy and mild component of heart failure mostly systolic in nature knowing that the patient's EF is 30 to 35 percent at best. 3 abdominal mass, most likely malignant unless proven otherwise, patient may eventually need CT-guided needle biopsy. Patient is known to have history of pancreatic cancer and previous surgery. 4 worsening hypernatremia secondary to dehydration and patient would likely benefit from free water and change IV fluid to D5W, holding diuretics for the time being. Monitor his electrolytes closely. And monitor chest x-ray, have a follow-up chest x-ray on Tuesday.. 5 multiple comorbidities including coronary artery disease and previous CABG in 2007. History of diabetes. History of hyperlipidemia. History of AICD placement for ischemic cardiomyopathy. History of previous CVA. History of peripheral vessel occlusive disease. Recommendation: I will cut down his IV fluid today to KVO, I ordered a chest x- ray to be done in a.m., May have to consider restarting diuretics based on the chest x-ray findings in a.m. We'll continue to follow, prognosis is very poor, and his daughter is very well aware of this. Time with Patient: Less than 30
--- NOTE | 2016-10-24 12:53 | P.PN ---
Subjective No events overnight. Patient is comfortable. Objective - Vital Signs Vital signs: Vital Signs Temp 97.4 F L 10/24/16 08:00 Pulse 94 10/24/16 11:56 Resp 18 10/24/16 08:00 BP 123/75 10/24/16 08:00 Pulse Ox 97 10/24/16 08:00 Intake & Output 10/23/16 10/24/16 10/24/16 18:59 06:59 18:59 Intake Total 200 Output Total 700 1100 Balance -500 -1100 Weight 81.5 kg Intake: Oral 200 Output: Urine 700 1100 Other: Voiding Method Indwelling Catheter Indwelling Catheter Indwelling Catheter # Voids 0 - Exam General: The patient is awake and alert, in no distress Eye: there is normal conjunctiva bilaterally. Neck: The neck is supple, there is no JVD. Cardiovascular: Normal S1-S2, no S3-S4, no murmurs. Respiratory: Lungs with diffuse rhonchi Gastrointestinal: Abdomen is soft, there is a palpable mass in the right upper quadrant Musculoskeletal: There is +1 pedal edema. Skin: Skin is warm and dry - Labs CBC & Chem 7: 10/24/16 06:55 10/24/16 06:49 Labs: Abnormal Lab Results - Last 24 Hours (Table) 10/23/16 10/23/16 10/24/16 Range/Units 17:00 20:37 06:29 RBC (4.30-5.90) m/uL Hgb (13.0-17.5) gm/dL Hct (39.0-53.0) % MCHC (31.0-37.0) g/dL RDW (11.5-15.5) % Sodium (137-145) mmol/L Carbon Dioxide (22-30) mmol/L BUN (9-20) mg/dL Glucose (74-99) mg/dL POC Glucose (mg/dL) 270 H 257 H 245 H (75-99) mg/dL Calcium (8.4-10.2) mg/dL Albumin (3.5-5.0) g/dL 10/24/16 10/24/16 10/24/16 Range/Units 06:49 06:55 11:59 RBC 3.90 L (4.30-5.90) m/uL Hgb 11.9 L (13.0-17.5) gm/dL Hct 38.9 L (39.0-53.0) % MCHC 30.6 L (31.0-37.0) g/dL RDW 16.9 H (11.5-15.5) % Sodium 149 H (137-145) mmol/L Carbon Dioxide 35 H (22-30) mmol/L BUN 37 H (9-20) mg/dL Glucose 259 H (74-99) mg/dL POC Glucose (mg/dL) 342 H (75-99) mg/dL Calcium 10.7 H (8.4-10.2) mg/dL Albumin 3.0 L (3.5-5.0) g/dL Assessment and Plan Plan: 1. Aspiration pneumonia. Continue with antibiotics. Pulmonary service following. Patient failed his swallow evaluation. He is refusing a PEG tube placement. 2. Acute systolic CHF exacerbation. EF of 30-35%. Followed by cardiology. 3. Abdominal mass noted on abdominal ultrasound. Computed tomography scan of the abdomen showing a 10 x 13 x 19 cm subcutaneous anterior abdominal wall most likely represent a hematoma. Seen and evaluated by surgery. No intervention recommended. 4. Abnormal troponins, not consistent with acute coronary syndrome. Likely secondary to oxygen supply and demand mismatch. Evaluated by cardiology. 5. Essential hypertension 6. Insulin-dependent diabetes mellitus 7. History of ischemic cardiopathy with prior AICD 8. History of CVA 9. Acute hypoxic respiratory failure: Secondary to pneumonia and CHF exacerbation Continue current regimen otherwise. Repeat chest x-ray in am. Repeat lab work in the morning. Family updated.
[2016-10-24] MEDS: HEPARIN SODIUM,PORCINE 5,000 UNIT/ML 1 ML VIAL SQ SCH ×2 (12:54→21:46)
[2016-10-24] MEDS: SPIRONOLACTONE 25 MG TAB PO SCH (12:57)
--- NOTE | 2016-10-24 14:06 | P.PN ---
Subjective Principal diagnosis: Congestive heart failure This is an 86-year-old gentleman with known history of coronary artery disease, prior bypass surgery, ischemic cardiomyopathy with prior AICD implantation, hypertension, diabetes, hyperlipidemia, PAD, prior CVA, who presented to the hospital mainly with complaints of a persistent productive cough, shortness of breath, and progressive weakness. Chest x-ray on admission revealed mild congestive heart failure. Patient was initiated on IV Lasix, diuresed well. Creatinine today 1.2, potassium 4.3, Sodium 149 . Breathing is stable today. Patient is still having issues with swallowing. Objective - Vital Signs Vital signs: Vital Signs Temp 97.4 F L 10/24/16 08:00 Pulse 94 10/24/16 11:56 Resp 18 10/24/16 08:00 BP 123/75 10/24/16 08:00 Pulse Ox 97 10/24/16 08:00 Intake & Output 10/23/16 10/24/16 10/24/16 18:59 06:59 18:59 Intake Total 200 Output Total 700 1100 Balance -500 -1100 Weight 81.5 kg Intake: Oral 200 Output: Urine 700 1100 Other: Voiding Method Indwelling Catheter Indwelling Catheter Indwelling Catheter # Voids 0 - Exam PHYSICAL EXAMINATION: HEENT: Head is atraumatic, normocephalic. Pupils equal, round. Neck is supple. There is no elevated jugular venous pressure. HEART EXAMINATION: S1 and S2 systolic murmur is heard. CHEST EXAMINATION: Lungs reveal scattered coarse rhonchi and wheezes throughout. ABDOMEN: Soft, nontender. Bowel sounds are heard. No organomegaly noted. EXTREMITIES: 1 + peripheral pulses with trace evidence of peripheral edema and no calf tenderness noted. NEUROLOGIC patient is awake, sleepy ,oriented -2. - Labs CBC & Chem 7: 10/24/16 06:55 10/24/16 06:49 Labs: Abnormal Lab Results - Last 24 Hours (Table) 10/23/16 10/23/16 10/24/16 Range/Units 17:00 20:37 06:29 RBC (4.30-5.90) m/uL Hgb (13.0-17.5) gm/dL Hct (39.0-53.0) % MCHC (31.0-37.0) g/dL RDW (11.5-15.5) % Sodium (137-145) mmol/L Carbon Dioxide (22-30) mmol/L BUN (9-20) mg/dL Glucose (74-99) mg/dL POC Glucose (mg/dL) 270 H 257 H 245 H (75-99) mg/dL Calcium (8.4-10.2) mg/dL Albumin (3.5-5.0) g/dL 10/24/16 10/24/16 10/24/16 Range/Units 06:49 06:55 11:59 RBC 3.90 L (4.30-5.90) m/uL Hgb 11.9 L (13.0-17.5) gm/dL Hct 38.9 L (39.0-53.0) % MCHC 30.6 L (31.0-37.0) g/dL RDW 16.9 H (11.5-15.5) % Sodium 149 H (137-145) mmol/L Carbon Dioxide 35 H (22-30) mmol/L BUN 37 H (9-20) mg/dL Glucose 259 H (74-99) mg/dL POC Glucose (mg/dL) 342 H (75-99) mg/dL Calcium 10.7 H (8.4-10.2) mg/dL Albumin 3.0 L (3.5-5.0) g/dL Assessment and Plan Plan: Assessment and plan #1 symptoms of productive cough with associated shortness of breath, likely a combination of acute tracheobronchitis and mild congestive heart failure, systolic in nature acute on chronic. Most recent echocardiogram with Doppler study was performed in June of last year which revealed an ejection fraction of 30-35%. #2 known history of coronary artery disease with prior bypass surgery in 2007 #3 diabetes #4 hypertension # 5 ischemic cardiomyopathy with prior AICD #6 hyperlipidemia #7 prior CVA #8 PAD #9 abnormal troponins, not consistent with acute coronary syndrome, likely secondary to oxygen supply and demand mismatch, patient denies having any chest pain. Most recent dobutamine echocardiographic study was performed in 2014. Plan From cardiology's perspective, we will add recommended to continue the patient on his current medications. Follow-up appointment with Dr. Cabral post discharge, we'll follow him along with you now on an as-needed basis only, please don't hesitate to call with any questions. DNP note has been reviewed, I agree with a documented findings and plan of care. Patient was seen and examined.
[2016-10-24 16:57] LABS: Glucose,Whole Blood 241 mg/dL (75-99)
[2016-10-24] MEDS ORDERED: DEXTROSE 5% IN WATER 1,000 ML IV ONE (18:12)
[2016-10-24] MEDS: ATORVASTATIN 20 MG TAB PO SCH (20:06)
[2016-10-24] MEDS ORDERED: LEVOFLOXACIN 500MG-D5W PMX 500 MG in DEXTROSE/WATER 1 100ML.BAG IVPB SCH (21:00)
[2016-10-24 22:06] LABS: Glucose,Whole Blood 232 mg/dL (75-99)
[2016-10-25] MEDS: LEVOTHYROXINE 125 MCG TAB PO SCH (05:42)
[2016-10-25 06:20] LABS: Glucose,Whole Blood 297 mg/dL (75-99)
[2016-10-25] MEDS: INSULIN LISPRO (humaLOG) 300 UNIT/3 ML VIAL SQ SCH ×4 (06:59→21:23)
--- NOTE | 2016-10-25 07:06 | PN ---
DATE OF SERVICE: 10/24/2016 Reason for followup is: 1. Right lower lobe aspiration pneumonia. 2. Rectus sheath hematoma. INTERVAL HISTORY: The patient is afebrile, apparently seems to have problem with swallowing and coughing, though no nausea or vomiting has been noticed. No significant abdominal pain or any diarrhea. On examination, blood pressure is 146/91 with a pulse of 91, temperature of 97.6. He is 95% on 5 L nasal cannula. General description is an elderly male, lying in bed in no distress. RESPIRATORY SYSTEM: Unlabored breathing. Some coarse breath sounds at the base, bilaterally. HEART: S1, S2. Regular rate and rhythm. ABDOMEN: Soft. No tenderness. LABS: Hemoglobin is 11.9, white count 10.5, blood culture has been negative. Urine is negative. DIAGNOSTIC IMPRESSION AND PLAN: 1. Patient with right lower lobe pneumonia, likely aspiration etiology. Patient current responded to the Zosyn and Levaquin that will be continued. Will try to get a sputum around his antibiotics. 2. Patient with a rectus sheath hematoma. Continue to monitor closely. Son was present at beside. His questions were answered.
[2016-10-25 07:16] LABS: Anisocytosis Slight; Basophils # (A) 0.2 k/uL (0-0.2); Basophils % (A) 2 %; CH 30.8; CHCM 31.2; Eosinophils # (A) 0.1 k/uL (0-0.7); Eosinophils % (A) 1 %; HCT 37.5 % (39.0-53.0); HDW 2.87; HGB 11.7 gm/dL (13.0-17.5); Hypochromasia Slight; Luc # (Auto) 0.24; Luc % (Auto) 2; Lymphocytes # (A) 2.8 k/uL (1.0-4.8); Lymphocytes % (A) 25 %; MCHC 31.3 g/dL (31.0-37.0); Macrocytosis Slight; Monocytes # (A) 0.5 k/uL (0-1.0); Monocytes % (A) 5 %; Neutrophils # (A) 7.1 k/uL (1.3-7.7); Neutrophils % (A) 65 %; RBC 3.79 m/uL (4.30-5.90); WBC 10.9 k/uL (3.8-10.6); WBC (Perox) 11.28
[2016-10-25 07:20] LABS: Anion Gap 12 mmol/L; Blood Urea Nitrogen 38 mg/dL (9-20); Calcium 10.5 mg/dL (8.4-10.2); Carbon Dioxide 34 mmol/L (22-30); Chloride 104 mmol/L (98-107); Glucose 297 mg/dL (74-99); Non-African American GFR(MDRD) 57 (>60 ml/min/1.73 sqM); Potassium 3.3 mmol/L (3.5-5.1); Sodium 150 mmol/L (137-145)
[2016-10-25] MEDS: IPRATROPIUM-ALBUTEROL 3 ML NEB INHALATION SCH ×4 (07:44→20:14)
[2016-10-25] MEDS: PIPERACILLIN-TAZOBACTAM 3.375 GM in DEXTROSE/WATER 1 50ML.BAG IVPB SCH ×3 (07:58→23:57)
[2016-10-25] MEDS: HEPARIN SODIUM,PORCINE 5,000 UNIT/ML 1 ML VIAL SQ SCH ×2 (07:58→21:21)
[2016-10-25] MEDS: INSULIN DETEMIR 100 UNIT/ML 10 ML VIAL SQ SCH ×2 (07:59→16:38)
[2016-10-25] MEDS ORDERED: POTASSIUM CHLORIDE ER 20 MEQ TAB.ER PO STA (08:18)
[2016-10-25 08:54] LABS: Magnesium 1.9 mg/dL (1.6-2.3)
--- NOTE | 2016-10-25 09:16 | XR ---
EXAMINATION TYPE: XR chest 1V portable DATE OF EXAM: 10/25/2016 7:01 AM COMPARISON: 10/20/2016 HISTORY: Cough, aspiration pneumonia TECHNIQUE: Single frontal view of the chest is obtained. FINDINGS: Bilateral subsegmental areas of consolidation. Postsurgical change, cardiac device and car diomegaly noted. Arthropathy of the shoulders seen. No pneumothorax. Calcified lymph nodes in right lower lobe granuloma. IMPRESSION: 1. Bilateral areas of subsegmental atelectasis or infiltrate.
[2016-10-25] MEDS: ASPIRIN 81 MG CHEW PO SCH (10:35)
[2016-10-25] MEDS: LOSARTAN 50 MG TAB PO SCH (10:35)
[2016-10-25] MEDS: METOPROLOL TARTRATE 50 MG TAB PO SCH ×2 (10:35→21:22)
[2016-10-25] MEDS: SPIRONOLACTONE 25 MG TAB PO SCH (10:35)
[2016-10-25 11:41] LABS: Glucose,Whole Blood 285 mg/dL (75-99)
--- NOTE | 2016-10-25 13:46 | P.PN ---
Subjective Patient presented with worsening shortness of breath. Still having some shortness of breath. Failed bedside swallow evaluation again this morning. Denies any chest pain or shortness breath. Denies any nausea or vomiting. Denies any abdominal pain. Has had bowel movement. Denies difficulty urinating. Objective - Vital Signs Vital signs: Vital Signs Temp 97.7 F 10/25/16 08:00 Pulse 98 10/25/16 11:40 Resp 16 10/25/16 11:40 BP 114/76 10/25/16 11:40 Pulse Ox 98 10/25/16 11:40 Intake & Output 10/24/16 10/25/16 10/25/16 18:59 06:59 18:59 Intake Total 260 390 690 Output Total 1125 300 Balance 260 -735 390 Weight 85 kg Intake: IV 260 50 210 .9 @ 20 160 160 Piperacillin-Tazobactam 3 100 50 50 .375 gm In Dextrose/Water 1 50ml.bag @ 12.5 mls/hr IVPB Q8HR [facility] Rx#: [id number] Intake, IV Titration 340 480 Amount Dextrose 5% in Water 1, 240 480 000 ml @ 60 mls/hr IV . [id number] ONE Rx#:[id number] Levofloxacin 500Mg-D5w 100 Pmx 500 mg In Dextrose/ Water 1 100ml.bag @ 100 mls/hr IVPB Q24H [facility] Rx#: [id number] Oral 0 Output: Urine 1125 300 Other: Voiding Method Indwelling Catheter Indwelling Catheter Indwelling Catheter - Exam Head normocephalic Neck supple Lungs coarse breath sounds Heart regular rate and rhythm S1-S2, no rub or gallop Abdomen is soft nontender nondistended positive bowel sounds no hepatosplenomegaly. Palpable mass nontender in liver Extremities no edema Neuro alert and orientated - Labs CBC & Chem 7: 10/25/16 06:30 10/25/16 06:30 Labs: Abnormal Lab Results - Last 24 Hours (Table) 10/24/16 10/24/16 10/25/16 Range/Units 16:44 21:53 06:18 WBC (3.8-10.6) k/uL RBC (4.30-5.90) m/uL Hgb (13.0-17.5) gm/dL Hct (39.0-53.0) % RDW (11.5-15.5) % Sodium (137-145) mmol/L Potassium (3.5-5.1) mmol/L Carbon Dioxide (22-30) mmol/L BUN (9-20) mg/dL Glucose (74-99) mg/dL POC Glucose (mg/dL) 241 H 232 H 297 H (75-99) mg/dL Calcium (8.4-10.2) mg/dL 10/25/16 10/25/16 10/25/16 Range/Units 06:30 06:30 11:38 WBC 10.9 H (3.8-10.6) k/uL RBC 3.79 L (4.30-5.90) m/uL Hgb 11.7 L (13.0-17.5) gm/dL Hct 37.5 L (39.0-53.0) % RDW 17.0 H (11.5-15.5) % Sodium 150 H (137-145) mmol/L Potassium 3.3 L (3.5-5.1) mmol/L Carbon Dioxide 34 H (22-30) mmol/L BUN 38 H (9-20) mg/dL Glucose 297 H (74-99) mg/dL POC Glucose (mg/dL) 285 H (75-99) mg/dL Calcium 10.5 H (8.4-10.2) mg/dL Assessment and Plan Plan: 1. aspiration pneumonia. Continue with antibiotics. Pulmonary service following. Patient failed his swallow evaluation. He is refusing a PEG tube placement. 2. Acute systolic CHF exacerbation. EF of 30-35%. Followed by cardiology. Diuresis with IV Lasix. Currently off of Lasix 3. Abdominal mass noted on abdominal ultrasound. Computed tomography scan of the abdomen showing a 10 x 13 x 19 cm subcutaneous anterior abdominal wall mass. This most likely represents a hematoma. He was seen and evaluated by surgical service. No intervention recommended. 4. Abnormal troponins, not consistent with acute coronary syndrome. Likely secondary to oxygen supply and demand mismatch. Evaluated by cardiology. 5. Essential hypertension 6. Insulin-dependent diabetes mellitus 7. History of ischemic cardiopathy with prior AICD 8. History of CVA 9. Acute hypoxic respiratory failure: Secondary to pneumonia and CHF exacerbation 10. Hypokalemia, patient receiving potassium supplement 11. Hypernatremia: Patient received D5 IV fluids. Patient's overall prognosis is poor and guarded. There is discussion about possible hospice. We are waiting for a family member from out of town to help make this final decision. Family member should be here tomorrow to discuss plan of care for patient
--- NOTE | 2016-10-25 14:12 | P.PN ---
Subjective Progress note dated 10/25/2016 86-year-old gentleman who typically sees Dr. Granado and our office. The patient seemed be doing relatively well. Laying in bed. Feeling better. The patient has a history of follow aspiration pneumonia and CHF. The patient did not have any complaints today. No cough no wheezing. No fever no chills. No nausea vomiting. No other complaints for that matter. Patient looks reasonably stable. Not sure about discharge. May go back to [facility]. Objective - Vital Signs Vital signs: Vital Signs Temp 97.7 F 10/25/16 08:00 Pulse 98 10/25/16 11:40 Resp 16 10/25/16 11:40 BP 114/76 10/25/16 11:40 Pulse Ox 98 10/25/16 11:40 Intake & Output 10/24/16 10/25/16 10/25/16 18:59 06:59 18:59 Intake Total 260 390 690 Output Total 1125 500 Balance 260 -735 190 Weight 85 kg Intake: IV 260 50 210 .9 @ 20 160 160 Piperacillin-Tazobactam 3 100 50 50 .375 gm In Dextrose/Water 1 50ml.bag @ 12.5 mls/hr IVPB Q8HR [facility] Rx#: [id number] Intake, IV Titration 340 480 Amount Dextrose 5% in Water 1, 240 480 000 ml @ 60 mls/hr IV . [id number] [facility] Rx#:[id number] Levofloxacin 500Mg-D5w 100 Pmx 500 mg In Dextrose/ Water 1 100ml.bag @ 100 mls/hr IVPB Q24H [facility] Rx#: [id number] Oral 0 Output: Urine 1125 500 Uretheral (Johnson) 200 Other: Voiding Method Indwelling Catheter Indwelling Catheter Indwelling Catheter - Exam No acute distress, oriented 3 HEENT examination is grossly unremarkable. Mucous membranes are moist. Neck is Supple. Full range of motion. No adenopathy. Cardiovascular examination reveals regular rhythm rate. S1 and S2 normal. Lungs reveal a few scattered rhonchi. No wheezes or crackles. Abdomen soft bowel sounds are heard. Extremities are intact. - Labs CBC & Chem 7: 10/25/16 06:30 10/25/16 06:30 Labs: Abnormal Lab Results - Last 24 Hours (Table) 10/24/16 10/24/16 10/25/16 Range/Units 16:44 21:53 06:18 WBC (3.8-10.6) k/uL RBC (4.30-5.90) m/uL Hgb (13.0-17.5) gm/dL Hct (39.0-53.0) % RDW (11.5-15.5) % Sodium (137-145) mmol/L Potassium (3.5-5.1) mmol/L Carbon Dioxide (22-30) mmol/L BUN (9-20) mg/dL Glucose (74-99) mg/dL POC Glucose (mg/dL) 241 H 232 H 297 H (75-99) mg/dL Calcium (8.4-10.2) mg/dL 10/25/16 10/25/16 10/25/16 Range/Units 06:30 06:30 11:38 WBC 10.9 H (3.8-10.6) k/uL RBC 3.79 L (4.30-5.90) m/uL Hgb 11.7 L (13.0-17.5) gm/dL Hct 37.5 L (39.0-53.0) % RDW 17.0 H (11.5-15.5) % Sodium 150 H (137-145) mmol/L Potassium 3.3 L (3.5-5.1) mmol/L Carbon Dioxide 34 H (22-30) mmol/L BUN 38 H (9-20) mg/dL Glucose 297 H (74-99) mg/dL POC Glucose (mg/dL) 285 H (75-99) mg/dL Calcium 10.5 H (8.4-10.2) mg/dL Assessment and Plan (1) Congestive heart failure Status: Acute (2) Pneumonia Status: Acute (3) COPD exacerbation Status: Acute (4) Cerebrovascular accident Status: Acute (5) Hyperlipemia Status: Acute (6) Hypertension Status: Acute (7) Hypothyroidism Status: Acute (8) TIA (transient ischemic attack) Status: Acute Plan: Plan The patient's doing relatively well. We'll continue to follow. No additional recommendations are made. The patient apparently was asked about possible PEG tube placement but has refused. Time with Patient: Less than 30
[2016-10-25] MEDS: DEXTROSE 5% IN WATER 1,000 ML IV SCH (15:40)
[2016-10-25 17:22] LABS: Glucose,Whole Blood 280 mg/dL (75-99)
[2016-10-25] MEDS: LATANOPROST 0.005% OPHTH DROPS 2.5 ML BTL BOTH EYES SCH (21:21)
[2016-10-25] MEDS: LEVOFLOXACIN 250MG-D5W PMX 250 MG in DEXTROSE/WATER 1 50ML.BAG IVPB SCH (21:21)
[2016-10-25] MEDS: ATORVASTATIN 20 MG TAB PO SCH (21:21)
[2016-10-25 21:24] LABS: Glucose,Whole Blood 307 mg/dL (75-99)
[2016-10-26] MEDS: LEVOTHYROXINE 125 MCG TAB PO SCH (06:23)
--- NOTE | 2016-10-26 06:24 | PN ---
DATE OF SERVICE: 10/25/2016 Reason for followup is aspiration pneumonia with rectus sheath hematoma. INTERVAL HISTORY: The patient is afebrile. Has been breathing comfortably. Hemodynamically stable. No nausea, no vomiting. Apparently has been fed by daughter this morning and did well without any choking. On examination, blood pressure is 126/75 with a pulse of 90, temperature 98.5. He is 96% on room air. General description is an elderly male, lying in bed in distress. RESPIRATORY SYSTEM: Unlabored breathing. Some coarse breath sounds at the bases, no wheeze. HEART: S1, S2. Regular rate and rhythm. ABDOMEN: Soft, no tenderness. LABS: Hemoglobin 11.7, white count 10.9. BUN of 38, creatinine is 1.22. Blood culture has been negative. Urine is negative. Chest x-ray reported to be bilateral subsegmental atelectasis. DIAGNOSTIC IMPRESSION AND PLAN: 1. Patient with right lower pneumonia with a question of aspiration etiology. Patient is doing well on Zosyn and Levaquin. So far no resistant organism has been grown and the patient continues to improve. Will be able to finish therapy with oral levaquin. 2. Rectus sheath hematoma. No need for any workup. Will continue to monitor closely. Daughter was present at the bedside. Her questions and concerns were answered. A.[facility]. [facility] MEMORIAL HOSPITALShaun
[2016-10-26 07:15] LABS: Glucose,Whole Blood 217 mg/dL (75-99)
[2016-10-26 07:55] LABS: Anisocytosis Slight; Basophils # (A) 0.1 k/uL (0-0.2); Basophils % (A) 1 %; CH 30.5; CHCM 31.1; Eosinophils # (A) 0.1 k/uL (0-0.7); Eosinophils % (A) 1 %; HCT 38.3 % (39.0-53.0); HDW 2.84; HGB 12.1 gm/dL (13.0-17.5); Hypochromasia Slight; Luc # (Auto) 0.24; Luc % (Auto) 2; Lymphocytes # (A) 2.6 k/uL (1.0-4.8); Lymphocytes % (A) 25 %; MCH 31.1 pg (25.0-35.0); MCHC 31.5 g/dL (31.0-37.0); MCV 98.5 fL (80.0-100.0); Macrocytosis Slight; Mean Platelet Volume 10.9; Monocytes # (A) 0.5 k/uL (0-1.0); Monocytes % (A) 5 %; Neutrophils % (A) 67 %; RBC 3.89 m/uL (4.30-5.90); RDW 16.8 % (11.5-15.5); WBC 10.6 k/uL (3.8-10.6); WBC (Perox) 10.66
[2016-10-26] MEDS: IPRATROPIUM-ALBUTEROL 3 ML NEB INHALATION SCH ×4 (08:14→19:26)
[2016-10-26 08:19] LABS: Anion Gap 13 mmol/L; Calcium 10.7 mg/dL (8.4-10.2); Carbon Dioxide 31 mmol/L (22-30); Chloride 108 mmol/L (98-107); Glucose 242 mg/dL (74-99); Non-African American GFR(MDRD) >60 (>60 ml/min/1.73 sqM); Sodium 152 mmol/L (137-145)
[2016-10-26 08:24] LABS: Blood Urea Nitrogen 37 mg/dL (9-20); Potassium 3.5 mmol/L (3.5-5.1)
[2016-10-26] MEDS: PIPERACILLIN-TAZOBACTAM 3.375 GM in DEXTROSE/WATER 1 50ML.BAG IVPB SCH ×3 (08:33→23:05)
[2016-10-26] MEDS: INSULIN DETEMIR 100 UNIT/ML 10 ML VIAL SQ SCH ×2 (08:33→17:43)
[2016-10-26] MEDS: INSULIN LISPRO (humaLOG) 300 UNIT/3 ML VIAL SQ SCH ×4 (08:33→20:36)
[2016-10-26] MEDS: METOPROLOL TARTRATE 50 MG TAB PO SCH ×2 (08:36→20:55)
[2016-10-26] MEDS: HEPARIN SODIUM,PORCINE 5,000 UNIT/ML 1 ML VIAL SQ SCH ×2 (08:41→20:55)
[2016-10-26] MEDS: SPIRONOLACTONE 25 MG TAB PO SCH (08:43)
[2016-10-26] MEDS: LOSARTAN 50 MG TAB PO SCH (08:43)
[2016-10-26] MEDS: ASPIRIN 81 MG CHEW PO SCH (08:43)
--- NOTE | 2016-10-26 10:19 | ECHOF ---
Referral Reason:chf MEASUREMENTS -------- HEIGHT: 170.2 cm WEIGHT: 84.4 kg BP: 161/82 RVIDd: 3.4 cm (< 3.3) IVSd: 1.3 cm (0.6 - 1.1) LVIDd: 4.4 cm (3.9 - 5.3) LVPWd: 1.4 cm (0.6 - 1.1) IVSs: 2.1 cm LVIDs: 3.3 cm LVPWs: 1.5 cm LA Diam: 3.5 cm (2.7 - 3.8) LAESV Index (A-L): 32.32 ml/m Ao Diam: 3.5 cm (2.0 - 3.7) AV Cusp: 1.9 cm (1.5 - 2.6) MV EXCURSION: 12.495 mm (> 18.000) MV EF SLOPE: 34 mm/s (70 - 150) EPSS: 1.6 cm MV E Omega: 0.51 m/s MV DecT: 176 ms MV A Omega: 0.88 m/s MV E/A Ratio: 0.58 RAP: 5.00 mmHg RVSP: 29.57 mmHg FINDINGS -------- Paced rhythm. Pacerwire seen in RV and RA. There is moderate concentric left ventricular hypertrophy. Overall left ventricular systolic function is mild-moderately impaired with, an EF between 40 - 45 %. Septal Hypokinesis The right ventricle is mildly enlarged. LA is midly dilated 29-33ml/m2. The right atrium is normal in size. 1.5mg of Definity was utilized for enhancement of images Aortic valve is trileaflet and is mildly thickened. The mitral valve leaflets are mildly thickened. Mild mitral annular calcification present. Mild mitral regurgitation is present. Mild tricuspid regurgitation present. Right ventricular systolic pressure is normal at < 35 mmHg. The pulmonic valve was not well visualized. There is no pulmonic regurgitation present. The aortic root size is normal. IVC Not well visulized. There is no pericardial effusion. CONCLUSIONS -------- 1. Paced rhythm. 2. Aortic valve is trileaflet and is mildly thickened. 3. The mitral valve leaflets are mildly thickened. 4. Mild mitral annular calcification present. 5. Mild mitral regurgitation is present. 6. Mild tricuspid regurgitation present. 7. Right ventricular systolic pressure is normal at < 35 mmHg. 8. The pulmonic valve was not well visualized. 9. There is no pulmonic regurgitation present. 10. The aortic root size is normal. 11. IVC Not well visulized. 12. Pacerwire seen in RV and RA. 13. There is no pericardial effusion. 14. There is moderate concentric left ventricular hypertrophy. 15. Overall left ventricular systolic function is mild-moderately impaired with, an EF between 40 - 45 %. 16. Septal Hypokinesis 17. The right ventricle is mildly enlarged. 18. LA is midly dilated 29-33ml/m2. 19. The right atrium is normal in size. 20. 1.5mg of Definity was utilized for enhancement of images HADOOP DEVELOPER: Gorge Ryan RDCS
--- NOTE | 2016-10-26 11:26 | PN ---
DATE OF SERVICE: 10/26/2016. Reason for followup is right lobe aspiration pneumonia. INTERVAL HISTORY: The patient is afebrile. Has been breathing comfortably. He remains to be slightly lethargic, oral intake remains to be poor. No nausea, no vomiting has been noticed or any significant diarrhea. On examination, blood pressure is 151/84 with a pulse of 88, temperature 98.2. He is 95% on 4 L nasal cannula. General description is an elderly male, lying in bed in no distress. RESPIRATORY SYSTEM: Unlabored breathing with decreased breath sounds at the base. HEART: S1, S2 regular rate and rhythm. ABDOMEN: Soft, no tenderness. LABS: Hemoglobin is 12.1, white count of 10.6 with a BUN of 37, creatinine is 1.08, blood culture has been negative. Sputum was not collected. DIAGNOSTIC IMPRESSION AND PLAN: Patient with a right lobe pneumonia, likely aspiration in etiology in a patient who is currently afebrile. White count is normal. Blood culture has been negative. Plan is to keep him on Zosyn and Levaquin with a plan to finish therapy p.o. Avelox; however, in view of overall poor prognosis, hospice may be better option. Daughter was present at bedside. Questions and concerns were answered.
[2016-10-26 12:12] LABS: Glucose,Whole Blood 338 mg/dL (75-99)
[2016-10-26] MEDS: DEXTROSE 5% IN WATER 1,000 ML IV SCH (12:17)
--- NOTE | 2016-10-26 14:24 | P.PN ---
Subjective Progress note dated 10/25/2016 86-year-old gentleman who typically sees Dr. Granado and our office. The patient seemed be doing relatively well. Laying in bed. Feeling better. The patient has a history of follow aspiration pneumonia and CHF. The patient did not have any complaints today. No cough no wheezing. No fever no chills. No nausea vomiting. No other complaints for that matter. Patient looks reasonably stable. Not sure about discharge. May go back to [facility]. Progress note dated down 10/26/2016 86-year-old gentleman with a history of chronic aspiration pneumonia and CHF. Talk to the family today. They were planning on making him hospice. They may try to get him back to [facility]. They refused another swallow evaluation by speech pathology. Other than that doing about the same or worse. Difficulty swallowing. Lots of congestion in his chest. Difficulty breathing. I think hospice is very appropriate for this patient. Objective - Vital Signs Vital signs: Vital Signs Temp 98.2 F 10/26/16 07:00 Pulse 92 10/26/16 11:22 Resp 22 10/26/16 07:00 BP 151/84 10/26/16 07:00 Pulse Ox 95 10/26/16 07:00 Intake & Output 10/25/16 10/26/16 10/26/16 18:59 06:59 18:59 Intake Total 690 Output Total 500 525 Balance 190 -525 Weight 85 kg 77 kg Intake: IV 210 .9 @ 20 160 Piperacillin-Tazobactam 3 50 .375 gm In Dextrose/Water 1 50ml.bag @ 12.5 mls/hr IVPB Q8HR [facility] Rx#: [id number] Intake, IV Titration 480 Amount Dextrose 5% in Water 1, 480 000 ml @ 60 mls/hr IV . [id number] [facility] Rx#:[id number] Output: Urine 500 525 Uretheral (Johnson) 200 Other: Voiding Method Indwelling Catheter Indwelling Catheter # Voids 1 # Bowel Movements 1 - Exam No acute distress, oriented 3 HEENT examination is grossly unremarkable. Mucous membranes are moist. Neck is Supple. Full range of motion. No adenopathy. Cardiovascular examination reveals regular rhythm rate. S1 and S2 normal. Lungs reveal a few scattered rhonchi. No wheezes or crackles. Abdomen soft bowel sounds are heard. Extremities are intact. - Labs CBC & Chem 7: 10/26/16 07:30 10/26/16 07:30 Labs: Abnormal Lab Results - Last 24 Hours (Table) 10/25/16 10/25/16 10/26/16 Range/Units 17:04 21:22 07:03 RBC (4.30-5.90) m/uL Hgb (13.0-17.5) gm/dL Hct (39.0-53.0) % RDW (11.5-15.5) % Sodium (137-145) mmol/L Chloride (98-107) mmol/L Carbon Dioxide (22-30) mmol/L BUN (9-20) mg/dL Glucose (74-99) mg/dL POC Glucose (mg/dL) 280 H 307 H 217 H (75-99) mg/dL Calcium (8.4-10.2) mg/dL 10/26/16 10/26/16 10/26/16 Range/Units 07:30 07:30 12:10 RBC 3.89 L (4.30-5.90) m/uL Hgb 12.1 L (13.0-17.5) gm/dL Hct 38.3 L (39.0-53.0) % RDW 16.8 H (11.5-15.5) % Sodium 152 H (137-145) mmol/L Chloride 108 H (98-107) mmol/L Carbon Dioxide 31 H (22-30) mmol/L BUN 37 H (9-20) mg/dL Glucose 242 H (74-99) mg/dL POC Glucose (mg/dL) 338 H (75-99) mg/dL Calcium 10.7 H (8.4-10.2) mg/dL Assessment and Plan (1) Congestive heart failure Status: Acute (2) Pneumonia Status: Acute (3) COPD exacerbation Status: Acute (4) Cerebrovascular accident Status: Acute (5) Hyperlipemia Status: Acute (6) Hypertension Status: Acute (7) Hypothyroidism Status: Acute (8) TIA (transient ischemic attack) Status: Acute Plan: Plan The patient's doing relatively well. We'll continue to follow. No additional recommendations are made. The patient apparently was asked about possible PEG tube placement but has refused. Plan dated 10/26/2016 The patient is doing poorly. The patient received refuses a feeding tube. They refused a swallow evaluation by speech pathology. The planning on making the patient hospice when other family members arrive. They may try to get the patient over to [facility] where he is a patient there before. Time with Patient: Less than 30
[2016-10-26 15:19] VITALS: TEMP 97.7
--- NOTE | 2016-10-26 16:32 | P.PN ---
Subjective Patient is resting comfortably in bed. Daughter at bedside. Objective - Vital Signs Vital signs: Vital Signs Temp 97.7 F 10/26/16 15:00 Pulse 80 10/26/16 15:00 Resp 20 10/26/16 15:00 BP 136/71 10/26/16 15:00 Pulse Ox 92 L 10/26/16 15:00 Intake & Output 10/25/16 10/26/16 10/26/16 18:59 06:59 18:59 Intake Total 690 Output Total 500 525 200 Balance 190 -525 -200 Weight 85 kg 77 kg Intake: IV 210 .9 @ 20 160 Piperacillin-Tazobactam 3 50 .375 gm In Dextrose/Water 1 50ml.bag @ 12.5 mls/hr IVPB Q8HR [facility] Rx#: [id number] Intake, IV Titration 480 Amount Dextrose 5% in Water 1, 480 000 ml @ 60 mls/hr IV . [id number] Rx#:[id number] Output: Urine 500 525 200 Uretheral (Johnson) 200 Other: Voiding Method Indwelling Catheter Indwelling Catheter Indwelling Catheter # Voids 1 # Bowel Movements 1 - Labs CBC & Chem 7: 10/26/16 07:30 10/26/16 07:30 Labs: Abnormal Lab Results - Last 24 Hours (Table) 10/25/16 10/25/16 10/26/16 Range/Units 17:04 21:22 07:03 RBC (4.30-5.90) m/uL Hgb (13.0-17.5) gm/dL Hct (39.0-53.0) % RDW (11.5-15.5) % Sodium (137-145) mmol/L Chloride (98-107) mmol/L Carbon Dioxide (22-30) mmol/L BUN (9-20) mg/dL Glucose (74-99) mg/dL POC Glucose (mg/dL) 280 H 307 H 217 H (75-99) mg/dL Calcium (8.4-10.2) mg/dL 10/26/16 10/26/16 10/26/16 Range/Units 07:30 07:30 12:10 RBC 3.89 L (4.30-5.90) m/uL Hgb 12.1 L (13.0-17.5) gm/dL Hct 38.3 L (39.0-53.0) % RDW 16.8 H (11.5-15.5) % Sodium 152 H (137-145) mmol/L Chloride 108 H (98-107) mmol/L Carbon Dioxide 31 H (22-30) mmol/L BUN 37 H (9-20) mg/dL Glucose 242 H (74-99) mg/dL POC Glucose (mg/dL) 338 H (75-99) mg/dL Calcium 10.7 H (8.4-10.2) mg/dL Assessment and Plan Plan: 1. aspiration pneumonia. Continue with antibiotics. Pulmonary service following. Patient failed his swallow evaluation. He is refusing a PEG tube placement. 2. Acute systolic CHF exacerbation. EF of 30-35%. Followed by cardiology. Diuresis with IV Lasix. Currently off of Lasix 3. Abdominal mass noted on abdominal ultrasound. Computed tomography scan of the abdomen showing a 10 x 13 x 19 cm subcutaneous anterior abdominal wall mass. This most likely represents a hematoma. He was seen and evaluated by surgical service. No intervention recommended. 4. Abnormal troponins, not consistent with acute coronary syndrome. Likely secondary to oxygen supply and demand mismatch. Evaluated by cardiology. 5. Essential hypertension 6. Insulin-dependent diabetes mellitus 7. History of ischemic cardiopathy with prior AICD 8. History of CVA 9. Acute hypoxic respiratory failure: Secondary to pneumonia and CHF exacerbation 10. Hypokalemia, patient receiving potassium supplement 11. Hypernatremia: Patient received D5 IV fluids. Patient's overall prognosis is poor and guarded. There is discussion about possible hospice. We are waiting for a family member from out of town to help make this final decision.
[2016-10-26] MEDS: LEVOFLOXACIN 250MG-D5W PMX 250 MG in DEXTROSE/WATER 1 50ML.BAG IVPB SCH (20:55)
[2016-10-26] MEDS: ATORVASTATIN 20 MG TAB PO SCH (20:55)
[2016-10-26] MEDS: LATANOPROST 0.005% OPHTH DROPS 2.5 ML BTL BOTH EYES SCH (20:55)
[2016-10-27] MEDS: LEVOTHYROXINE 125 MCG TAB PO SCH (05:41)
[2016-10-27] MEDS: MORPHINE SULFATE 4 MG/ML SYRINGE IVP PRN (07:12)
[2016-10-27] MEDS: IPRATROPIUM-ALBUTEROL 3 ML NEB INHALATION SCH ×4 (07:22→19:26)
[2016-10-27] MEDS: LOSARTAN 50 MG TAB PO SCH (09:07)
[2016-10-27] MEDS: INSULIN DETEMIR 100 UNIT/ML 10 ML VIAL SQ SCH ×2 (09:07→16:56)
[2016-10-27] MEDS: INSULIN LISPRO (humaLOG) 300 UNIT/3 ML VIAL SQ SCH ×3 (09:07→16:56)
[2016-10-27] MEDS: ASPIRIN 81 MG CHEW PO SCH (09:08)
[2016-10-27] MEDS: HEPARIN SODIUM,PORCINE 5,000 UNIT/ML 1 ML VIAL SQ SCH (09:08)
[2016-10-27] MEDS: PIPERACILLIN-TAZOBACTAM 3.375 GM in DEXTROSE/WATER 1 50ML.BAG IVPB SCH ×2 (09:08→16:46)
[2016-10-27] MEDS: SPIRONOLACTONE 25 MG TAB PO SCH (09:08)
[2016-10-27] MEDS: METOPROLOL TARTRATE 50 MG TAB PO SCH (09:08)
[2016-10-27] MEDS: DEXTROSE 5% IN WATER 1,000 ML IV SCH (12:45)
[2016-10-27 15:18] VITALS: BP 119/72
[2016-10-27] MEDS: LORazepam 2 MG/ML SYRINGE IV PRN ×2 (16:58→21:08)
--- NOTE | 2016-10-27 17:01 | P.PN ---
Subjective Patient's clinical condition is not improving overall. He is very lethargic throughout the day and occasionally wakes up and ask for water. He continues to have evidence of aspiration even with water. Objective - Vital Signs Vital signs: Vital Signs Temp 97.7 F 10/26/16 15:00 Pulse 86 10/27/16 15:48 Resp 20 10/26/16 15:00 BP 119/72 10/27/16 15:00 Pulse Ox 92 L 10/26/16 15:00 Intake & Output 10/26/16 10/27/16 10/27/16 18:59 06:59 18:59 Output Total 200 550 300 Balance -200 -550 -300 Weight 81.5 kg Output: Urine 200 550 300 Other: Voiding Method Indwelling Catheter Indwelling Catheter Indwelling Catheter # Voids 1 # Bowel Movements 1 1 - Exam General: The patient is awake and alert, in no distress Eye: there is normal conjunctiva bilaterally. Neck: The neck is supple, there is no JVD. Cardiovascular: Normal S1-S2, no S3-S4, no murmurs. Respiratory: Lungs with diffuse rhonchi Gastrointestinal: Abdomen is soft, there is a palpable mass in the right upper quadrant Musculoskeletal: There is +1-2 pedal edema. Skin: Skin is warm and dry - Labs CBC & Chem 7: 10/26/16 07:30 10/26/16 07:30 Assessment and Plan Plan: Today, I had a prolonged discussion with the patient 3 daughters at the bedside. They all agree to pursue comfort measures. We discussed hospice philosophy. They would like to have him enrolled in hospice inpatient. Consult will be requested. We'll continue with comfort medications only. Below is a list of his medical problems 1. aspiration pneumonia 2. Acute systolic CHF exacerbation. EF of 30-35%. 3. Abdominal mass noted on abdominal ultrasound. Most likely hematoma 4. Abnormal troponins, not consistent with acute coronary syndrome. Likely secondary to oxygen supply and demand mismatch. \ 5. Essential hypertension 6. Insulin-dependent diabetes mellitus 7. History of ischemic cardiopathy with prior AICD 8. History of CVA 9. Acute hypoxic respiratory failure: Secondary to pneumonia and CHF exacerbation 10. Underlying dementia/cognitive impairment
[2016-10-27] MEDS ORDERED: SCOPOLAMINE 1.5MG/72HR PATCH TRANSDERM SCH (18:45)
[2016-10-28] MEDS: LORazepam 2 MG/ML SYRINGE IV PRN ×8 (00:14→23:05)
[2016-10-28] MEDS: MORPHINE SULFATE 4 MG/ML SYRINGE IVP PRN ×4 (01:57→21:40)
[2016-10-28 09:26] VITALS: BMI 28.1
[2016-10-28] MEDS: IPRATROPIUM-ALBUTEROL 3 ML NEB INHALATION SCH ×4 (09:46→19:15)
--- NOTE | 2016-10-28 12:41 | P.PN ---
Subjective Patient presented with worsening shortness of breath with evidence of aspiration pneumonia and CHF exacerbation. Patient is currently on comfort care. Awaiting final decision on starting hospice care. Patient lying in bed comfortably. No evidence of distress. Objective - Vital Signs Vital signs: Vital Signs Temp 97.7 F 10/26/16 15:00 Pulse 92 10/28/16 00:05 Resp 20 10/26/16 15:00 BP 119/72 10/27/16 15:00 Pulse Ox 92 L 10/26/16 15:00 Intake & Output 10/27/16 10/28/16 10/28/16 18:59 06:59 18:59 Output Total 300 400 Balance -300 -400 Weight 81.5 kg Output: Urine 300 400 Other: Voiding Method Indwelling Catheter Indwelling Catheter Indwelling Catheter # Bowel Movements 1 - Exam Head normocephalic Neck supple Lungs coarse breath sounds Heart regular rate and rhythm S1-S2, no rub or gallop Abdomen is soft nontender nondistended positive bowel sounds no hepatosplenomegaly. Palpable mass nontender in liver Extremities no edema Neuro alert and orientated - Labs CBC & Chem 7: 10/26/16 07:30 10/26/16 07:30 Assessment and Plan Plan: 1. aspiration pneumonia 2. Acute systolic CHF exacerbation. EF of 30-35%. 3. Abdominal mass noted on abdominal ultrasound. Most likely hematoma 4. Abnormal troponins, not consistent with acute coronary syndrome. Likely secondary to oxygen supply and demand mismatch. \ 5. Essential hypertension 6. Insulin-dependent diabetes mellitus 7. History of ischemic cardiopathy with prior AICD 8. History of CVA 9. Acute hypoxic respiratory failure: Secondary to pneumonia and CHF exacerbation 10. Underlying dementia/cognitive impairment Patient is currently under comfort care. Awaiting family's final decision on initiating hospice.
[2016-10-29] MEDS: MORPHINE SULFATE 4 MG/ML SYRINGE IVP PRN (00:51)
[2016-10-29] MEDS: LORazepam 2 MG/ML SYRINGE IV PRN ×4 (02:16→11:23)
[2016-10-29 05:11] VITALS: RESP 20
[2016-10-29] MEDS: IPRATROPIUM-ALBUTEROL 3 ML NEB INHALATION SCH ×2 (07:11→11:07)
[2016-10-29 08:32] VITALS: PULSE 76
--- NOTE | 2016-10-29 12:28 | P.PN ---
Subjective Patient presented with worsening shortness of breath with evidence of aspiration pneumonia and CHF exacerbation. Patient is currently on comfort care. Awaiting final decision on starting hospice care. Patient lying in bed comfortably. No evidence of distress. Objective - Vital Signs Vital signs: Vital Signs Temp 97.7 F 10/26/16 15:00 Pulse 76 10/29/16 08:31 Resp 20 10/29/16 08:31 BP 119/72 10/27/16 15:00 Pulse Ox 92 L 10/26/16 15:00 Intake & Output 10/28/16 10/29/16 10/29/16 18:59 06:59 18:59 Intake Total 120 Output Total 300 75 Balance -180 -75 Weight 81.5 kg 78.925 kg Intake: IV 120 .9 @ 20 120 Output: Urine 300 75 Other: Voiding Method Indwelling Catheter Indwelling Catheter Indwelling Catheter # Bowel Movements 0 - Exam Head normocephalic Neck supple Lungs coarse breath sounds Heart regular rate and rhythm S1-S2, no rub or gallop Abdomen is soft nontender nondistended positive bowel sounds no hepatosplenomegaly. Palpable mass nontender in liver Extremities no edema Neuro alert and orientated - Labs CBC & Chem 7: 10/26/16 07:30 10/26/16 07:30 Assessment and Plan Plan: 1. aspiration pneumonia 2. Acute systolic CHF exacerbation. EF of 30-35%. 3. Abdominal mass noted on abdominal ultrasound. Most likely hematoma 4. Abnormal troponins, not consistent with acute coronary syndrome. Likely secondary to oxygen supply and demand mismatch. 5. Essential hypertension 6. Insulin-dependent diabetes mellitus 7. History of ischemic cardiopathy with prior AICD 8. History of CVA 9. Acute hypoxic respiratory failure: Secondary to pneumonia and CHF exacerbation 10. Underlying dementia/cognitive impairment Patient is currently under comfort care. Awaiting family's final decision on initiating hospice.
== END 2016-10-29 14:05 | disposition hospice, inpatient (51) | DRG 177 ==
LOC: SUPCPDRO 16:58 → EC 16:58 → 6SEL 19:34 → 4MS4W 10-25 14:05
PROVIDERS: ADMIT Internal Medicine; ATTEND Internal Medicine
DX: J69.0 Pneumonitis due to inhalation of food and vomit (principal); I50.23 Acute on chronic systolic (congestive) heart failure; J96.01 Acute respiratory failure with hypoxia; E87.1 Hypo-osmolality and hyponatremia; J44.0 Chronic obstructive pulmonary disease with (acute) lower respiratory infection; J44.1 Chronic obstructive pulmonary disease with (acute) exacerbation; R13.10 Dysphagia, unspecified; E11.51 Type 2 diabetes mellitus with diabetic peripheral angiopathy without gangrene; I25.5 Ischemic cardiomyopathy; I25.10 Atherosclerotic heart disease of native coronary artery without angina pectoris; I10 Essential (primary) hypertension; F32.9 Major depressive disorder, single episode, unspecified; E03.9 Hypothyroidism, unspecified; E78.5 Hyperlipidemia, unspecified; F41.9 Anxiety disorder, unspecified; H40.9 Unspecified glaucoma; I25.2 Old myocardial infarction; I49.3 Ventricular premature depolarization; J20.9 Acute bronchitis, unspecified; J45.909 Unspecified asthma, uncomplicated; M10.9 Gout, unspecified; M19.90 Unspecified osteoarthritis, unspecified site; H91.90 Unspecified hearing loss, unspecified ear; E87.6 Hypokalemia; E86.0 Dehydration; F03.90 Unspecified dementia, unspecified severity, without behavioral disturbance, psychotic disturbance, mood disturbance, and anxiety; R01.1 Cardiac murmur, unspecified; M79.81 Nontraumatic hematoma of soft tissue; Z51.5 Encounter for palliative care; Z79.4 Long term (current) use of insulin; Z79.82 Long term (current) use of aspirin; Z79.899 Other long term (current) drug therapy; Z85.07 Personal history of malignant neoplasm of pancreas; Z87.891 Personal history of nicotine dependence; Z95.1 Presence of aortocoronary bypass graft; Z95.810 Presence of automatic (implantable) cardiac defibrillator; Z91.041 Radiographic dye allergy status; Z85.819 Personal history of malignant neoplasm of unspecified site of lip, oral cavity, and pharynx; Z85.89 Personal history of malignant neoplasm of other organs and systems; Z86.14 Personal history of Methicillin resistant Staphylococcus aureus infection; Z89.422 Acquired absence of other left toe(s); Z96.651 Presence of right artificial knee joint; Z74.01 Bed confinement status; Z82.49 Family history of ischemic heart disease and other diseases of the circulatory system
CPT/HCPCS: 36415; 71010; 71020; 74176; 74230; 76700; 80048; 80053; 81001; 82550; 82553; 83036; 83605; 83735; 83880; 84132; 84484; 85025; 85027; 85610; 85730; 87040; 87086; 87502; 93005; 93306; 94640; 94660; 94760; 96365; 96366; 96367; 99291

== ENCOUNTER 2016-10-29 14:08 | Inpatient (IN) | payer MEDICAID ==
[2016-10-29] MEDS ORDERED: MORPHINE SULFATE 2 MG/ML SYRINGE IVP PRN (14:22)
[2016-10-29] MEDS ORDERED: MORPHINE SULFATE 4 MG/ML SYRINGE IVP PRN (14:26)
[2016-10-29] MEDS ORDERED: MORPHINE SULFATE 10 MG/ML SYRINGE IVP PRN (14:26)
[2016-10-29] MEDS ORDERED: ATROPINE OPHTH SOLN 1% 5ML BTL SUBLINGUAL PRN (14:29)
[2016-10-29] MEDS ORDERED: ACETAMINOPHEN SUPPOSITORY 650 MG SUPP RECTAL PRN (14:31)
[2016-10-29] MEDS ORDERED: BISACODYL 10 MG SUPP RECTAL PRN (14:34)
[2016-10-29] MEDS ORDERED: ONDANSETRON 4 MG/2 ML VIAL IVP PRN (14:34)
[2016-10-29] MEDS ORDERED: SODIUM CHLORIDE 0.65% NASAL SPRAY 44 ML BTL NASAL PRN (14:38)
[2016-10-29] MEDS ORDERED: ARTIFICIAL TEARS-HYPROMELLOSE DROPS 15 ML BTL BOTH EYES PRN (14:39)
[2016-10-29 14:40] VITALS: BMI 27.2
[2016-10-29] MEDS: LORazepam 2 MG/ML SYRINGE IV SCH ×3 (14:59→21:31)
[2016-10-30] MEDS: LORazepam 2 MG/ML SYRINGE IV SCH ×8 (00:29→21:14)
[2016-10-30] MEDS ORDERED: SCOPOLAMINE 1.5MG/72HR PATCH TRANSDERM SCH (12:00)
[2016-10-30] MEDS: MORPHINE SULFATE 2 MG/ML SYRINGE IVP PRN ×5 (12:25→22:02)
--- NOTE | 2016-10-30 14:34 | P.PN ---
Subjective Principal diagnosis: Aspiration pneumonia Patient is an 86-year-old male with recurrent episodes of aspiration pneumonia and sepsis he failed swallow evaluation patient and family refused PEG tube for feeding they opted for hospice care. Currently patient is maintained on hospice he is maintained on morphine and Ativan and scopolamine patch At this time he is laying constantly in bed no signs of shortness of breath no signs of seizures or pain or discomfort Continue was current management program doses is terminal hospice nurse following Objective - Vital Signs Vital signs: Vital Signs Temp Pulse Resp 24 10/30/16 06:02 BP Pulse Ox Intake & Output 10/29/16 10/30/16 10/30/16 18:59 06:59 18:59 Intake Total 0 Output Total 400 Balance -400 Weight 78.9 kg Intake: Oral 0 Output: Urine 400 Uretheral (Johnson) 200 Other: Voiding Method Indwelling Catheter Indwelling Catheter Indwelling Catheter
[2016-10-31] MEDS: LORazepam 2 MG/ML SYRINGE IV SCH ×3 (00:01→06:23)
[2016-10-31] MEDS: MORPHINE SULFATE 2 MG/ML SYRINGE IVP PRN ×2 (01:00→04:15)
[2016-10-31 01:03] VITALS: RESP 26
--- NOTE | 2016-11-01 16:43 | P.DS ---
Providers Date of admission: 10/29/16 14:08 Expected date of discharge: 10/31/16 Attending physician: Izabella Connors Primary care physician: Jose Lawton [facility] Course: Discharge diagnosis Preliminary cause of : Acute hypoxic respiratory failure secondary to aspiration pneumonia and acute systolic CHF exacerbation. 1. Aspiration pneumonia 2. Acute systolic CHF exacerbation. EF of 30-35% 3. Abdominal mass noted on abdominal ultrasound, most likely hematoma. Evaluated by surgical service 4. Abnormal troponins, not consistent with acute coronary syndrome. Likely secondary to oxygen supply and demand mismatch 5. Essential hypertension 6. Insulin-dependent diabetes mellitus 7. History of ischemic cardiomyopathy with prior AICD 8. History of CVA 9. Acute hypoxic respiratory failure secondary to pneumonia and CHF exacerbation 10. Dementia Hospital course This is a 86-year-old male who initially presented to the hospital with worsening shortness of breath and cough. He was initially thought to have a tracheobronchitis and CHF exacerbation. He was started on IV antibiotics and IV diuretics. Patient did have hypoxia on presentation requiring the use of BiPAP in the emergency room. He was then converted over to nasal cannula. Pulmonary and cardiology services were consulted. His echo shows an EF of 30-35 %. He was evaluated by speech therapy for a possible aspiration pneumonia. He did fail his swallow evaluation. Also had a modified barium swallow that did show evidence of aspiration. Antibiotics were adjusted. Patient refused to have PEG tube placement. He maintained on IV Lasix for his CHF exacerbation and then was able to be switched over to oral Lasix. On exam there was palpable abdominal mass abdominal ultrasound and a computed tomography scan of the abdomen were completed they showed evidence of a hematoma, mass or seroma. Patient was seen by surgical service and felt that this was most likely a hematoma. And no surgical intervention was required. Patient remained on a high level of oxygen his symptoms did not show significant improvement. Patient 's overall condition is very poor and guarded. Eventually, it was addressed with family about placing patient on comfort care and hospice. After much discussion between family members they did decide to proceed with comfort care and hospice. Patient was placed on hospice with comfort measures and medications. And he on 10/31/2016. Please refer to chart for any further details. Plan - Discharge Summary Discharge Medication List Bimatoprost [Lumigan .01% Ophth Soln] 1 drop BOTH EYES HS@2100 10/30/14 [History ] Citalopram Hydrobromide [CeleXA] 20 mg PO HS@209910/30/14 [History] Hydrochlorothiazide [Hydrodiuril] 25 mg PO DAILY@0810/30/14 [History] Levothyroxine Sodium [Levoxyl] 125 mcg PO DAILY@0600 10/30/14 [History] Losartan Potassium [Cozaar] 100 mg PO DAILY@0810/30/14 [History] Metoprolol Tartrate [Lopressor] 100 mg PO BID@0800,209910/30/14 [History] Simvastatin [Zocor] 20 mg PO AC-SUPPER@169910/30/14 [History] hydrALAZINE HCL 25 mg PO BID@0800,169910/30/14 [History] Multivit-Min/FA/Lycopene/Lut [Centrum Silver Tablet] 1 tab PO DAILY@1699 [History] Albuterol Nebulized [Ventolin Nebulized] 2.5 mg INHALATION RT-Q6H PRN 10/05/15 [ History] Allopurinol [Zyloprim] 300 mg PO DAILY@0807/06/16 [History] glipiZIDE [Glucotrol] 5 mg PO AC-TID 07/06/16 [History] Acetaminophen Tab [Tylenol Tab] 650 mg PO Q4H PRN 10/19/16 [History] Aspirin 325 mg PO DAILY@169910/19/16 [History] Bisacodyl [Dulcolax] 10 mg RECTAL DAILY PRN 10/19/16 [History] Furosemide 40 mg IV BID@0800,209910/19/16 [History] Furosemide 40 mg IV ONCE@103610/19/16 [History] Glucerna Shake 1 can PO TID@0800,1200,1700 10/19/16 [History] Insulin Aspart [NovoLOG] See Protocol SQ ACHS 10/19/16 [History] Insulin Detemir [Levemir] 8 unit SQ BID@0800,17010/19/16 [History] Ipratropium-Albuterol Nebulize [Duoneb 0.5 mg-3 mg/3 ml Soln] 3 ml INHALATION RT -Q6H 10/19/16 [History] Levofloxacin 500Mg-D5w Pmx [Levaquin 500Mg-D5w Pmx] 500 mg IVPB HS@2100 [History] Magnesium Hydroxide [Milk of Magnesia] 2,400 mg PO DAILY PRN 10/19/16 [History] Na Phos,M-B/Na Phos,Di-Ba [Fleet Adult] 133 ml RECTAL ONCE PRN 10/19/16 [History ] Potassium Chloride ER [K-Dur 20] 20 meq PO ONCE@1300 10/19/16 [History] Potassium Chloride ER [K-Dur 20] 20 meq PO ONCE@1400 10/19/16 [History] Tiotropium 18 Mcg/Puff [Spiriva] 1 cap INHALATION RT-BID@0800,1700 10/19/16 [ History] guaiFENesin SYRUP 100MG/5ML [Robitussin] 200 mg PO Q4H PRN 10/19/16 [History] guaiFENesin [Mucinex] 1,200 mg PO Q12H 10/19/16 [History] Discharge Disposition: - Preliminary Cause of Preliminary Cause of : Acute hypoxic respiratory failure with aspiration pneumonia
== END 2016-10-31 05:40 | disposition expired | DRG 177 ==
LOC: 4MS4W 14:08
PROVIDERS: ADMIT Internal Medicine; ATTEND Internal Medicine
DX: J69.0 Pneumonitis due to inhalation of food and vomit (principal); J96.01 Acute respiratory failure with hypoxia; I50.23 Acute on chronic systolic (congestive) heart failure; I24.8 Other forms of acute ischemic heart disease; E11.9 Type 2 diabetes mellitus without complications; F03.90 Unspecified dementia, unspecified severity, without behavioral disturbance, psychotic disturbance, mood disturbance, and anxiety; I11.0 Hypertensive heart disease with heart failure; I25.5 Ischemic cardiomyopathy; Z51.5 Encounter for palliative care; Z79.4 Long term (current) use of insulin; Z86.73 Personal history of transient ischemic attack (TIA), and cerebral infarction without residual deficits; Z95.810 Presence of automatic (implantable) cardiac defibrillator; S30.1XXA Contusion of abdominal wall, initial encounter